=== PATIENT | female | born 1945 | race Caucasian/White ===

== ENCOUNTER 2016-08-04 23:14 | Emergency (ER) | payer MEDICARE ==
[~2016-08-04] VITALS: Ht 177.8 cm; Wt 72.0 kg
[~2016-08-04 23:14] MED LIST: CLON.1 PO; CLON1 PO; CYCL1TAB29 PO; DIOV320T PO; FENT100D T-DERMAL; LYRI150C PO; MAGN400C2; MULT-120 PO; NEBI20 PO; NIFE1TAB86 PO; PERC10TA27 PO; PROT40TA PO; TRIA1TAB5 PO; VENL75TA PO; VITA20003; ZOFR4TAB PO; ZOLP10TA3 PO
[2016-08-04 23:17] VITALS: BP 121/71; PULSE 86; RESP 16; TEMP 97.6; O2SAT 96
[2016-08-05] MEDS ORDERED: SODIUM CHLORIDE 0.9% FLUSH 5 ML FLUSH IVF PRN
[2016-08-05 00:28] LABS: AUTOMATED NEUTROPHIL # 4.3 TH/MM3 (1.8-7.7); BASOPHIL % 0.7 % (0.0-2.0); EOSINOPHIL # 0.2 TH/MM3 (0-0.4); HEMATOCRIT 38.7 % (35.0-46.0); HEMO FLAGS DIFF FINAL; LYMPH % 19.4 % (9.0-44.0); LYMPHOCYTE # 1.3 TH/MM3 (1.0-4.8); MEAN CORPUSCULAR HEMOGLOBIN 27.2 PG (27.0-34.0); MEAN CORPUSCULAR HGB CONC 33.2 % (32.0-36.0); MONO % 11.6 % (0.0-8.0); NEUT % 65.3 % (16.0-70.0); PLATELET COUNT 231 TH/MM3 (150-450); RED BLOOD COUNT 4.72 MIL/MM3 (4.00-5.30); RED CELL DISTRIBUTION WIDTH 14.8 % (11.6-17.2); WHITE BLOOD COUNT 6.5 TH/MM3 (4.0-11.0)
[2016-08-05 00:31] VITALS: O2SAT 97
[2016-08-05 00:33] LABS: BACTERIA, URINE RARE /hpf; BLOOD, URINE NEG (NEG); COMMENT (UR) CULT NOT INDICATED; CULTURE IF INDICATED CULT NOT INDICATED; GLUCOSE,URINE NEG (NEG); KETONE, URINE NEG (NEG); MUCUS URINE FEW /lpf (OCC); NITRITE,URINE NEG (NEG); URINE COLOR YELLOW (YELLW/STRAW)
--- NOTE | 2016-08-05 00:37 | RADRPT ---
EXAM DATE/TIME: 08/05/2016 00:18 [facility] COMPARISON: CT BRAIN W/O CONTRAST, April 18, 2015, 20:08. INDICATIONS : Trauma; fall. Altered mental status. RADIATION DOSE: 39.04 CTDIvol (mGy) MEDICAL HISTORY : Hypertension. Cardiovascular disease Seizures.CVA SURGICAL HISTORY : Hysterectomy. Appendectomy. ENCOUNTER: Initial ACUITY: 1 day PAIN SCALE: 2/10 LOCATION: cranial TECHNIQUE: Multiple contiguous axial images were obtained of the head. Using automated exposure control and adj ustment of the mA and/or kV according to patient size, radiation dose was kept as low as reasonably a chievable to obtain optimal diagnostic quality images. FINDINGS: CEREBRUM: The ventricles are normal for age. No evidence of midline shift, mass lesion, hemorrhage or acute in farction. No extra-axial fluid collections are seen. POSTERIOR FOSSA: The cerebellum and brainstem are intact. The 4th ventricle is midline. The cerebellopontine angle i s unremarkable. EXTRACRANIAL: The visualized portion of the orbits is intact. SKULL: The calvaria is intact. No evidence of skull fracture. CONCLUSION: 1. No evidence of acute intracranial pathology. No masses are identified. Marcello Duran MD on August 05, 2016 at 0:35 Board Certified Radiologist. This report was verified electronically.
--- NOTE | 2016-08-05 01:02 | PD ---
HPI . Weakness Chief Complaint: Altered Mental Status Time Seen by Provider: 23:54 Travel History International Travel<30 days: No Contact w/Intl Traveler<30days: No Traveled to known affect area: No History of Present Illness HPI Patient is brought in for the evaluation of weakness. Patient's history is obtained from the patient and her daughter. The daughter reports that the patient may be dehydrated because she takes Lasix and doesn't drink very much fluid. The daughter also states that the patient has known cervical disc disease. The patient states that she is having trouble with urinating all the time. She has had no fever. There has been no associated vomiting or diarrhea. No chest pain or shortness of breath. PFSH Past Medical History Arthritis: Yes Blood Disorders: No Anxiety: Yes Depression: Yes Cancer: No Cardiovascular Problems: Yes High Cholesterol: Yes Chest Pain: No Cerebrovascular Accident: Yes Diabetes: No Diminished Hearing: No Endocrine: No Fibromyalgia: Yes Gastrointestinal Disorders: Yes (hysterectomy) GERD: Yes Genitourinary: No Headaches: Yes Hepatitis: No Hiatal Hernia: No Hypertension: Yes Immune Disorder: No Implanted Vascular Access Dvce: No Medical other: Yes (FIBROMYALGIA) Musculoskeletal: Yes (degenerative lumbosacral intravertebral disk disease, SPINAL STENOSIS) Neurologic: Yes (CVA) Psychiatric: No Reproductive: Yes (HYSTERECTOMY) Respiratory: No Seizures: Yes Thyroid Disease: No Menopausal: Yes Past Surgical History Abdominal Surgery: Yes (ABDOMINOPLASTY) AICD: No Appendectomy: Yes Body Medical Devices: HARDWARE RIGHT ANKLE, LUMBAR SPINE HARDWARE Gynecologic Surgery: Yes Hysterectomy: Yes Joint Replacement: No Neurologic Surgery: Yes (MYELOGRAM 2012) Pacemaker: No Other Surgery: Yes Social History Alcohol Use: No Tobacco Use: No Substance Use: No Allergies-Medications (Allergen,Severity, Reaction): Coded Allergies: Cephalosporins (Verified Allergy, Severe, Anaphylaxis, 08/05/16) Clindamycin (Verified Allergy, Severe, rash and heavy chest, 08/05/16) Contrast Media (Verified Allergy, Severe, 08/05/16) Pt had a severe allergic reaction to myelogram and CT DYE. Erythromycin (Verified Allergy, Severe, Anaphylaxis, 08/05/16) Levaquin (Verified Allergy, Severe, breathing problems, 08/05/16) Penicillin (Verified Allergy, Severe, Anaphylaxis, 08/05/16) Sulfa (Verified Allergy, Severe, Anaphylaxis, 08/05/16) Tetracycline (Verified Allergy, Severe, Anaphylaxis, 08/05/16) Vioxx (Verified Allergy, Severe, Anaphylaxis, 08/05/16) Morphine (Verified Adverse Reaction, Severe, "BAD REACTION", 08/05/16) PT STATES IS NOT ALLERGIC Hydrocodone (Verified Adverse Reaction, Unknown, 08/05/16) PT STATES SHE IS NOT ALLERGIC Reported Meds & Prescriptions Reported Meds & Active Scripts Active Reported Multivitamin Women (Multiple Vitamins W/ Minerals) 1 Tab Tab 1 Tab PO DAILY Zolpidem (Zolpidem Tartrate) 10 Mg Tab 10 Mg PO HS PRN Zofran (Ondansetron HCl) 4 Mg Tab 4 Mg PO Q8HR PRN Vitamin D (Cholecalciferol) 2,000 Unit Tab 2,000 DAILY Protonix (Pantoprazole Sodium) 40 Mg Tab 40 Mg PO DAILY Percocet (Oxycodone-Acetaminophen) 10-325 mg Tab 1 Tab PO Q6H PRN Magnesium Oxide 400 Mg Cap 400 Mg DAILY Lyrica (Pregabalin) 150 Mg Cap 150 Mg PO TID Klonopin (Clonazepam) 1 Mg Tab 1 Mg PO BID Flexeril (Cyclobenzaprine HCl) 10 Mg Tab 10 Mg PO TID Fentanyl Patch 72 HR (Fentanyl) 100 Mcg/Hr Patch 100 Mcg T-DERMAL EVERY OTHER DAY Remove old patch when new one placed. Effexor (Venlafaxine HCl) 75 Mg Tab 75 Mg PO TID Diovan (Valsartan) 320 Mg Tab 320 Mg PO DAILY Catapres (Clonidine) 0.1 Mg Tab 0.1 Mg PO TID PRN Triamterene-Hydrochlorothiazide 75-50 Mg Tab 1 Tab PO DAILY Procardia XL (Nifedipine) 60 Mg Tab 60 Mg PO BID Review of Systems Except as stated in HPI: all other systems reviewed are Neg General / Constitutional: No: Fever, Chills HENT: No: Headaches Cardiovascular: No: Chest Pain or Discomfort Respiratory: No: Shortness of Breath Gastrointestinal: No: Nausea, Vomiting, Diarrhea, Abdominal Pain Genitourinary: Positive: Urgency, Frequency, Incontinence Musculoskeletal: Positive: Weakness Neurologic: Positive: Weakness Physical Exam Narrative GENERAL: This is a distressed elderly woman. She is distressed because she is on a bedpan. SKIN: Warm and dry. HEAD: Atraumatic. She has a contusion to the left forehead. EYES: Pupils equal and round. ENT: No nasal bleeding or discharge. Mucous membranes pink and moist. She has a swollen right lower lip. NECK: Trachea midline. Neck is supple. She has diffuse C-spine tenderness. CARDIOVASCULAR: Regular rate and rhythm. Heart sounds are normal. RESPIRATORY: No accessory muscle use. Lungs are clear. GASTROINTESTINAL: Abdomen soft, non-tender, nondistended. MUSCULOSKELETAL: No obvious deformities. No edema. NEUROLOGICAL: Awake and alert. No obvious cranial nerve deficits. Motor grossly within normal limits. Normal speech. PSYCHIATRIC: Appropriate mood and affect; insight and judgment normal. Data Data Last Documented VS Vital Signs Date Time Temp Pulse Resp B/P Pulse Ox O2 Delivery O2 Flow Rate FiO2 08/05/16 01:35 78 18 122/70 97 Room Air 08/04/16 23:17 97.6 Orders Complete Blood Count With Diff (08/05/16 00:00) Comprehensive Metabolic Panel (08/05/16 00:00) Lactic Acid (08/05/16 00:00) Urinalysis - C+S If Indicated (08/05/16 00:00) Iv Access Insert/Monitor (08/05/16 00:00) Ecg Monitoring (08/05/16 00:00) Oximetry (08/05/16 00:00) Sodium Chloride 0.9% Flush (Ns Flush) (08/05/16 00:00) Electrocardiogram (08/05/16 00:00) Urinary Catheter Insert/Apply (08/05/16 00:00) Ct Brain W/O Iv Contrast(Rout) (08/05/16 ) Labs Laboratory Tests Test 08/05/16 08/05/16 00:00 00:05 White Blood Count 6.5 TH/MM3 Red Blood Count 4.72 MIL/MM3 Hemoglobin 12.8 GM/DL Hematocrit 38.7 % Mean Corpuscular Volume 82.0 FL Mean Corpuscular Hemoglobin 27.2 PG Mean Corpuscular Hemoglobin 33.2 % Concent Red Cell Distribution Width 14.8 % Platelet Count 231 TH/MM3 Mean Platelet Volume 8.6 FL Neutrophils (%) (Auto) 65.3 % Lymphocytes (%) (Auto) 19.4 % Monocytes (%) (Auto) 11.6 % Eosinophils (%) (Auto) 3.0 % Basophils (%) (Auto) 0.7 % Neutrophils # (Auto) 4.3 TH/MM3 Lymphocytes # (Auto) 1.3 TH/MM3 Monocytes # (Auto) 0.8 TH/MM3 Eosinophils # (Auto) 0.2 TH/MM3 Basophils # (Auto) 0.0 TH/MM3 CBC Comment DIFF FINAL Differential Comment Sodium Level 140 MEQ/L Potassium Level 3.7 MEQ/L Chloride Level 102 MEQ/L Carbon Dioxide Level 29.0 MEQ/L Anion Gap 9 MEQ/L Blood Urea Nitrogen 18 MG/DL Creatinine 0.89 MG/DL Estimat Glomerular Filtration 63 ML/MIN Rate Random Glucose 145 MG/DL Lactic Acid Level 1.3 mmol/L Calcium Level 9.0 MG/DL Total Bilirubin 0.3 MG/DL Aspartate Amino Transf 23 U/L (AST/SGOT) Alanine Aminotransferase 20 U/L (ALT/SGPT) Alkaline Phosphatase 103 U/L Total Protein 7.1 GM/DL Albumin 3.4 GM/DL Urine Color YELLOW Urine Turbidity CLEAR Urine pH 7.0 Urine Specific [place] 1.015 Urine Protein NEG mg/dL Urine Glucose (UA) NEG mg/dL Urine Ketones NEG mg/dL Urine Occult Blood NEG Urine Nitrite NEG Urine Bilirubin NEG Urine Urobilinogen LESS THAN 2.0 MG/DL Urine Leukocyte Esterase NEG Urine WBC 1 /hpf Urine Bacteria RARE /hpf Urine Mucus FEW /lpf Microscopic Urinalysis Comment CULT NOT INDICATED MDM Medical Decision Making Medical Screen Exam Complete: Yes Emergency Medical Condition: Yes Medical Record Reviewed: Yes (this patient has multiple medical problems. She has a history of hypertension, previous intracerebral hemorrhage and many orthopedic issues.) Interpretation(s) EKG shows a normal sinus rhythm with no acute change. Differential Diagnosis Differential diagnosis of weakness includes but is not limited to infection, CVA , electrolyte disturbance, renal failure, hypoglycemia, UTI, ACS Narrative Course Patient presents for evaluation of weakness and frequent falls. CBC & BMP Diagram 08/05/16 00:00 UA is negative for infection. CT of her head is negative. Disposition was discussed with the patient and her daughter. Patient states that she wants to go home. I have expressed my concerns about the patient going home and falling and sustaining a significant injury. Patient states that she is falling because she has a bad walker at home. She states that she will be careful. Diagnosis Primary Impression: Generalized weakness Additional Impression: Frequent falls Patient Instructions: General Instructions, Weakness (ED) Disposition: 01 DISCHARGE HOME Condition: Stable Shari Villareal MD Aug 05, 2016 01:02
[2016-08-05 01:32] LABS: ALKALINE PHOSPHATASE 103 U/L (45-117); ALT (GPT) 20 U/L (10-53); ANION GAP 9 MEQ/L (5-15); AST (GOT) 23 U/L (15-37); BLOOD UREA NITROGEN 18 MG/DL (7-18); CHLORIDE 102 MEQ/L (98-107); GLOMERULAR FILTRATION RATE 63 ML/MIN (>89); SODIUM (NA) 140 MEQ/L (136-145); TOTAL BILIRUBIN ADULT 0.3 MG/DL (0.2-1.0)
[2016-08-05 01:33] LABS: POTASSIUM 3.7 MEQ/L (3.5-5.1)
[2016-08-05 01:35] VITALS: BP 122/70; PULSE 78; RESP 18; O2SAT 97
--- NOTE | 2016-08-05 14:22 | EKG ---
Date Performed: 08/04/2016 Time Performed: 23:30:18 PTAGE: 71 years EKG: Sinus rhythm LOW QRS VOLTAGE IN PRECORDIAL LEADS Since previous tracing, no significant change noted BORDERLINE E CG PREVIOUS TRACING : 12/07/2014 08.27 DOCTOR: Salvador Rea Interpretating Date/Time 08/05/2016 15:15:40
[2016-08-20] MEDS ORDERED: ATEN50TA PO (14:34)
[2016-08-20] MEDS ORDERED: LORA1TAB12 PO (14:34)
== END 2016-08-05 02:44 | disposition home or self-care (01) ==
LOC: NEPC 23:14
DX: R53.1 Weakness (principal); Z91.81 History of falling
CPT/HCPCS: 51702; 70450; 80053; 81001; 83605; 85025; 93005

== ENCOUNTER → 2016-08-20 | Outpatient (CLI) | payer MEDICARE ==
[~2016-08-20] MED LIST changes: +ATEN50TA PO; +LORA1TAB12 PO; +MEDR4PAK PO; -NEBI20 PO; +OXYC1TAB36 PO; +TRAM50TA PO
[2016-08-20 13:50] LABS: AUTOMATED NEUTROPHIL # 4.5 TH/MM3 (1.8-7.7); BASOPHIL % 0.7 % (0.0-2.0); EOSINOPHIL # 0.2 TH/MM3 (0-0.4); EOSINOPHIL % 2.6 % (0.0-4.0); HEMATOCRIT 39.2 % (35.0-46.0); HEMO FLAGS DIFF FINAL; LYMPH % 16.2 % (9.0-44.0); LYMPHOCYTE # 1.1 TH/MM3 (1.0-4.8); MEAN CELL VOLUME 83.1 FL (80.0-100.0); MEAN CORPUSCULAR HEMOGLOBIN 27.4 PG (27.0-34.0); MONO % 10.5 % (0.0-8.0); PLATELET COUNT 246 TH/MM3 (150-450); RED BLOOD COUNT 4.71 MIL/MM3 (4.00-5.30); RED CELL DISTRIBUTION WIDTH 14.6 % (11.6-17.2); WHITE BLOOD COUNT 6.5 TH/MM3 (4.0-11.0)
[2016-08-20 13:58] LABS: BLOOD, URINE NEG (NEG); COMMENT (UR) CATH-CULT NOT IND; CULTURE IF INDICATED CATH CULTURE NOT IND; GLUCOSE,URINE NEG (NEG); KETONE, URINE NEG (NEG); MUCUS URINE FEW /lpf (OCC); NITRITE,URINE NEG (NEG); URINE COLOR YELLOW (YELLW/STRAW)
--- NOTE | 2016-08-22 18:53 | EKG ---
Date Performed: 08/20/2016 Time Performed: 13:08:58 PTAGE: 71 years EKG: Sinus rhythm NORMAL ECG PREVIOUS TRACING : 08/04/2016 23.30 DOCTOR: Archie Quintana Interpretating Date/Time 08/22/2016 18:49:34
== END ==
LOC: CPRE 09:00
PROVIDERS: ATTEND Orthopaedic Surgery Orthopaedic Surgery of the Spine
DX: Z01.810 Encounter for preprocedural cardiovascular examination (principal); Z01.812 Encounter for preprocedural laboratory examination; Z01.818 Encounter for other preprocedural examination; M50.320 Other cervical disc degeneration, mid-cervical region, unspecified level; M50.33 Other cervical disc degeneration, cervicothoracic region
CPT/HCPCS: 36415; 81001; 85025; 93005

== ENCOUNTER 2016-08-30 07:34 | Observation (INO) | payer MEDICARE ==
--- NOTE | 2016-08-29 22:05 | MH ---
cc: HAYDEN HERRERA DATE OF ADMISSION 08/30/2016 ADMISSION DIAGNOSIS Osteophyte disk complex cervical spine. HISTORY This is a 71-year-old female with significant neck, shoulder and arm pain. Investigative studies show evidence of osteophyte disk complex C5-6 at C6-7. Studies show evidence of cord compression especially at C5 6 with myelomalacia. See attached records for full history. PAST MEDICAL HISTORY, SOCIAL HISTORY AND FAMILY HISTORY Some see attached notes. REVIEW OF SYSTEMS See attached notes. PHYSICAL EXAMINATION GENERAL: Average built female appearing her stated age. HEENT: Normocephalic, atraumatic. Pupils equal, round, reactive to light and accommodation. Extraocular motions intact. NECK: Supple. CHEST: Clear. HEART: Regular rate and rhythm. ABDOMEN: Soft, nontender, normoactive bowel sounds. MUSCULOSKELETAL: Examination cervical spine restricted range of motion, positive Spurling's maneuver. Motor examination shows active motor examination, see attached records. IMPRESSION 1. Osteophyte disk complex C5-6 and C6-C7. 2. Cervical radiculopathy. 3. Cervical spinal stenosis. 4. Cervical myelopathy. 5. Cervical instability, C5 6 and C6 7 PLAN Anterior cervical diskectomy, decompression and bilateral foraminotomy C5-6 and C6-7, anterior interbody cages, anterior plate, iliac crest bone graft. CONSENT The risks for surgery including infection, bleeding, loss of motion, continued pain, need for further surgery, neurologic and vascular injury. The patient understands these issues and wishes to press on with surgery as outlined above. Surgery will be performed under the guidance of Dr. Amilcar Herrera and the undersigned. MD PATRICIA Dobbs/LASHANDA /9:46 PM /9:53 PM DENISE
[~2016-08-30] VITALS: Ht 152.4 cm; Wt 69.7 kg
[~2016-08-30 07:34] MED LIST changes: -DIOV320T PO; -MEDR4PAK PO; -MULT-120 PO; -OXYC1TAB36 PO; -TRAM50TA PO; -TRIA1TAB5 PO
[2016-08-30 08:39] VITALS: BP 142/81; PULSE 79; RESP 22; TEMP 97.9; O2SAT 98
[2016-08-30] MEDS ORDERED: MIDAZOLAM HCL 2 MG/2 ML VIAL ONE (09:38)
[2016-08-30] MEDS ORDERED: HYDROmorphone HCL PF 2 MG/ML VIAL ONE (09:38)
[2016-08-30] MEDS ORDERED: APREPITANT 40 MG CAP PO SCH (10:15)
[2016-08-30] MEDS ORDERED: CHLORHEXIDINE GLUCONATE 4% SOLN 120 ML BTL TOP SCH (11:30)
[2016-08-30] MEDS ORDERED: VANCOMYCIN 1000 MG/NS 250 ML (for <70 kg) IV SCH ×2 (11:30)
[2016-08-30] MEDS ORDERED: GENTAMICIN SULFATE 80 MG/2 ML VIAL ONE (11:46)
[2016-08-30] MEDS ORDERED: FAMOTIDINE 20 MG/2 ML VIAL ONE (12:00)
[2016-08-30] MEDS ORDERED: PROPOFOL 200 MG/20 ML AMP IV ONE (12:00)
[2016-08-30] MEDS ORDERED: ACETAMINOPHEN 1000 MG/100 ML VIAL IV ONE (12:00)
[2016-08-30] MEDS ORDERED: KETAMINE HCL 500 MG/5 ML VIAL ONE (12:00)
[2016-08-30] MEDS ORDERED: LACTATED RINGER'S 1000 ML INJ 1,000 ML IV ONE (12:00)
[2016-08-30] MEDS ORDERED: ONDANSETRON HCL 4 MG/2 ML VIAL IV PUSH ONE (12:00)
[2016-08-30] MEDS ORDERED: DEXAMETHASONE SOD PHOS 4 MG/ML VIAL ONE (12:00)
[2016-08-30] MEDS ORDERED: fentaNYL CITRATE 250 MCG/5 ML AMP ONE (12:00)
[2016-08-30] MEDS ORDERED: BUPIVACAINE/EPINEPHRINE 0.25% 50 ML VIAL INFIL ONE (13:56)
--- NOTE | 2016-08-30 14:40 | PD.OP ---
cc: Amilcar Williamson MD; Francisco Javier Williamson MD Operative Report Date of Surgery: Aug 30, 2016 Preoperative Diagnosis: Osteophyte disc complex C5 6 and C6 7. Cervical spinal stenosis. Cervical radiculopathy. Cervical myelopathy. Cervical instability, C5 6 and C6 7 Postoperative Diagnosis: Same Procedure: Anterior cervical discectomy decompression and bilateral foraminotomies, C5 6. Anterocervical discectomy decompression and bilateral foraminotomies, C6 7. Left anterior iliac crest bone graft Anesthesia: Gen. Surgeon: Francisco Javier Williamson Assembler Dc Field Yoke(s): GISELLE Garcia Operation and Findings: EBL: 100 cc INDICATIONS: Patient is a 71-year-old female who is developing a significant cervical myelopathy related to instability at C5 6 and C6 7 with evidence of spinal cord compromise and myelomalacia. She presents for surgical treatment NOTE: Linda Garcia PA-C was present for the entire surgical procedure as my rn first assist. In my medical opinion her skill and care was necessary for proper management of this patient PROCEDURE: The patient was brought to the operating room and anesthetized in the supine position. This patient was positioned supine on the radiolucent table. All pressure points were protected in the anterior cervical spine and iliac crest was scrubbed with alcohol followed by Hibiclens followed by ChloraPrep. A timeout was done and antibiotics were given within 1 hour time window. Lateral radiographic images were used identifying the proper level. A right anterior incision was made in line with skin creases. The platysma was opened in line with the incision. Deep dissection continued in the interval between the carotid sheath and the esophagus. The longus-coli muscles were lifted on both sides and retractors were positioned allowing good exposure. Lateral radiographic images were used to identify the proper level. [place] style interosseous pins were placed at C5 and 6 allowing exposure to that level. The microscope was rolled into the field. A total discectomy was accomplished and posterior osteophytes were removed. The posterior longitudinal ligament and annulus was taken down. Bilateral foraminotomies were accomplished. The endplates were squared up anticipating later bone grafting. A blunt probe could be placed out each foramen without evidence of nerve root compromise. The C5 pin was placed down to C7. An anterior exposure was accomplished. We performed a total discectomy with excision of the posterior annulus and posterior longitudinal ligament. Bilateral foraminotomies were accomplished. Osteophytes were removed. The endplates were squared up anticipating later bone grafting. A blunt probe could be placed out each foramen without evidence of nerve root compromise. The left iliac crest was approached. A small stab incision was made allowing percutaneous access to the anterior iliac crest. Multiple cores of cancellous bone were harvested and taken to the back table to be used for later bone grafting. The wound was irrigated anesthetized and closed with 4-0 Vicryl followed by Dermabond. The case was turned over to Dr. Amilcar Williamson for fusion and instrumentation per his dictation. FINDINGS: There was evidence of significant stenosis with instability both at the C5 6 and C6 7 levels. No complication was appreciated. NOTE: This surgery was performed in 2 parts. The first part was the neurosurgical decompression performed under the variable power stereo microscope by the undersigned in addition to the bone graft. The second portion of the surgery will be performed by the orthopedic spine component by co -surgeon, Dr. Amilcar Williamson for the anterior fusion with interbody cage and anterior plate. The skill of 2 surgeons was necessary to perform distinct separate procedural services as dictated above and dictated in the following operative note by Dr. Amilcar Williamson. Francisco Javier Williamson MD Aug 30, 2016 14:40
[2016-08-30] MEDS ORDERED: OXYC1TAB36 PO (14:41)
[2016-08-30] MEDS ORDERED: PANTOPRAZOLE SOD 40 MG DELAYED RELEASE TAB PO PRN (14:45)
[2016-08-30] MEDS ORDERED: ONDANSETRON HCL 4 MG/2 ML VIAL IV PRN (14:45)
[2016-08-30] MEDS ORDERED: SODIUM CHLORIDE 0.9% FLUSH 5 ML FLUSH IVF PRN (14:45)
[2016-08-30] MEDS ORDERED: MORPHINE SULFATE 4 MG/ML INJ IV PUSH PRN (14:45)
[2016-08-30] MEDS ORDERED: BISACODYL 10 MG SUPP PR PRN (14:45)
[2016-08-30] MEDS ORDERED: cloNIDine HCL 0.1 MG TAB PO PRN (14:45)
[2016-08-30] MEDS ORDERED: oxyCODONE/ACETAMINOPHEN 5 MG/325 MG TAB PO PRN ×2 (14:45)
[2016-08-30] MEDS ORDERED: Post-op Orders (for Pharmacy) MISC XX ONE (14:45)
[2016-08-30] MEDS ORDERED: LORazepam 1 MG TAB PO PRN (14:45)
[2016-08-30] MEDS ORDERED: ZOLPIDEM TARTRATE 10 MG TAB PO PRN (14:45)
[2016-08-30] MEDS ORDERED: ONDANSETRON ODT 4 MG TAB PO PRN (15:30)
--- NOTE | 2016-08-30 15:44 | RADRPT ---
EXAM DATE/TIME: 08/30/2016 13:13 [facility] COMPARISON: No previous studies available for comparison. INDICATIONS : Cervical Spine Fusion, C5-6, C6-7. MEDICAL HISTORY : Hypertension. Cardiovascular disease. Seizures. CVA SURGICAL HISTORY : Hysterectomy. Appendectomy. ENCOUNTER: Initial ACUITY: 1 day PAIN SCORE: Non-responsive. LOCATION: Cervical Spine. FINDINGS: Two projection examination was performed. There is an anterior cervical fusion plate extending from C5-C7 with screws at the C5, C6 and C7 vertebral bodies and stabilization devices at the C5-C6 and C6 -C7 disc levels. The hardware appears well placed. CONCLUSION: Good placement of hardware at the C5-C7 levels. Shar Kevin MD on August 30, 2016 at 15:41 Board Certified Radiologist. This report was verified electronically.
[2016-08-30] MEDS ORDERED: *HYDROmorphone PF 1 MG VIAL PERIprocedural Use ONLY ONE ×3 (16:21→16:43)
[2016-08-30] MEDS ORDERED: DO NOT ADM ANY ANTICOAGULANT DRUGS XX PRN (16:30)
[2016-08-30] MEDS ORDERED: LORazepam 2 MG/ML VIAL ONE (16:34)
[2016-08-30] MEDS ORDERED: *hydrOXYzine 25 MG VIAL PERIprocedural Use ONLY IM ONE (16:43)
[2016-08-30] MEDS ORDERED: HYDROmorphone HCL PF 1 MG/ML VIAL IV PRN (18:00)
[2016-08-30] MEDS: LACTATED RINGER'S 1000 ML INJ 1,000 ML IV SCH (18:45)
[2016-08-30] MEDS: PREGABALIN 75 MG CAP PO SCH (19:17)
[2016-08-30] MEDS: CYCLOBENZAPRINE HCL 10 MG TAB PO SCH (19:17)
[2016-08-30] MEDS ORDERED: fentaNYL 100 MCG/HR PATCH T-DERMAL SCH (20:00)
[2016-08-30 20:45] VITALS: BP 139/98; PULSE 77; RESP 16; TEMP 96.9; O2SAT 99
[2016-08-30 20:49] VITALS: BP 139/98; PULSE 77; RESP 16; TEMP 96.9; O2SAT 99
[2016-08-30] MEDS: clonazePAM 1 MG TAB PO SCH (21:06)
[2016-08-30] MEDS: NIFEdipine 60 MG SUSTAINED RELEASE TAB PO SCH (21:06)
[2016-08-30] MEDS: ATENOLOL 50 MG TAB PO SCH (21:06)
[2016-08-30] MEDS: VENLAFAXINE HCL XR 75 MG CAP PO SCH (21:06)
[2016-08-30] MEDS: SODIUM CHLORIDE 0.9% FLUSH 5 ML FLUSH IVF SCH (21:07)
[2016-08-31 00:46] VITALS: BP 164/97; PULSE 101; O2SAT 97
[2016-08-31] MEDS: clonazePAM 1 MG TAB PO SCH ×2 (00:53→08:51)
[2016-08-31] MEDS: LACTATED RINGER'S 1000 ML INJ 1,000 ML IV SCH (03:04)
[2016-08-31 04:00] VITALS: BP 135/96; PULSE 80; RESP 22; TEMP 97.9; O2SAT 94
[2016-08-31] MEDS ORDERED: VANCOMYCIN INJ 1,000 MG in SODIUM CHLOR 0.9% 250 ML INJ 250 ML IV ONE (06:00)
--- NOTE | 2016-08-31 07:46 | PD.ORT.PN ---
Subjective Subjective Remarks Patient appears comfortable. Race is intact. No arm pain or loss of feeling. Motor examination 5/5 Objective Vitals Vital Signs Date Time Temp Pulse Resp B/P Pulse Ox O2 Delivery O2 Flow Rate FiO2 08/31/16 04:00 97.9 80 22 135/96 94 08/31/16 00:46 101 164/97 97 08/30/16 20:49 96.9 77 16 139/98 99 08/30/16 20:45 96.9 77 16 139/98 99 08/30/16 19:00 74 12 164/88 98 Nasal Cannula 2 08/30/16 18:45 97.2 73 12 158/81 96 Nasal Cannula 2 08/30/16 18:30 73 12 142/79 96 Nasal Cannula 2 08/30/16 18:15 73 12 122/66 96 Nasal Cannula 2 08/30/16 18:00 74 12 129/71 96 Nasal Cannula 3 08/30/16 17:45 74 10 141/80 96 Nasal Cannula 3 08/30/16 17:30 76 12 159/85 99 Nasal Cannula 3 08/30/16 17:15 77 12 158/86 98 Nasal Cannula 3 08/30/16 17:00 86 12 162/95 95 Nasal Cannula 3 08/30/16 16:45 87 12 178/113 92 Nasal Cannula 3 08/30/16 16:30 92 12 165/87 93 Nasal Cannula 3 08/30/16 16:15 83 12 174/107 92 Nasal Cannula 3 08/30/16 16:00 81 14 151/75 99 Blow By 4 Nasal Cannula 08/30/16 15:59 89 14 153/80 99 Blow By 4 Nasal Cannula 08/30/16 08:39 97.9 79 22 142/81 98 I/O 08/30/16 08/30/16 08/30/16 08/31/16 08/31/16 08/31/16 07:00 15:00 23:00 07:00 15:00 23:00 Intake Total 1650 ml 150 ml Output Total 1800 ml 225 ml Balance -150 ml -75 ml Intake Oral 150 ml 150 ml IV Total 300 ml Other 1200 ml Output Urine Total 1650 ml 225 ml Estimated Blood Loss 150 ml # Bowel Movements 0 0 Objective Remarks Incision is clean. Motor examination 5/5. X-ray looks excellent. Some swallowing discomfort but otherwise normal voice and no evidence of Christophe syndrome Assessment & Plan Assessment and Plan Cervical spinal stenosis. Cervical radiculopathy. Cervical myelopathy. ACDF C5 6, C6 7, POD #1. PLAN: Discharge to home Continue present medications Additional prescription of Percocet if necessary Brace full-time Dry dressing change Can shower in 2 days if dressings are dry Follow-up in 2 weeks Francisco Javier Williamson MD Aug 31, 2016 07:46
[2016-08-31 08:00] VITALS: BP 133/68; PULSE 81; RESP 17; TEMP 96.8; O2SAT 96
[2016-08-31] MEDS: CYCLOBENZAPRINE HCL 10 MG TAB PO SCH (08:51)
[2016-08-31] MEDS: SODIUM CHLORIDE 0.9% FLUSH 5 ML FLUSH IVF SCH (08:51)
[2016-08-31] MEDS: ATENOLOL 50 MG TAB PO SCH (08:51)
[2016-08-31] MEDS: PREGABALIN 75 MG CAP PO SCH (08:51)
[2016-08-31] MEDS: VENLAFAXINE HCL XR 75 MG CAP PO SCH (08:51)
[2016-08-31] MEDS: NIFEdipine 60 MG SUSTAINED RELEASE TAB PO SCH (08:51)
[2016-08-31] MEDS ORDERED: DOCUSATE SODIUM 100 MG CAP PO SCH (09:00)
[2016-08-31] MEDS ORDERED: MULTIVITAMINS/MINERALS THERAPEUTIC TAB PO SCH (09:00)
[2016-08-31 12:00] VITALS: BP 127/69; PULSE 75; RESP 17; TEMP 97.3; O2SAT 97
[2016-09-01] MEDS ORDERED: REMOVE OLD PATCH TD SCH (09:00)
--- NOTE | 2016-09-01 21:39 | MP ---
cc: JOSE WILLIAMSON JAMES E. M.D. DATE OF SURGERY 08/30/16 PREOPERATIVE DIAGNOSIS 1. C5-6 osteophyte disk complex, spondylolisthesis, spinal stenosis, spinal cord compression 2. C6-7 osteophyte disk complex, spondylolisthesis, spinal cord edema, spinal cord compression, spinal stenosis. 3. Cervical spine degenerative disk osteoarthritis. 4. Cervical myelopathy with bilateral cervical radiculitis, bilateral upper extremity weakness. POSTOPERATIVE DIAGNOSIS 1. C5-6 osteophyte disk complex, spondylolisthesis, spinal stenosis, spinal cord compression 2. C6-7 osteophyte disk complex, spondylolisthesis, spinal cord edema, spinal cord compression, spinal stenosis. 3. Cervical spine degenerative disk osteoarthritis. 4. Cervical myelopathy with bilateral cervical radiculitis, bilateral upper extremity weakness. PROCEDURE C5-6, C6-7 anterior body fusion; C5-6, C6-7 spinet ACC anterior cervical cage; C5-C7 spinet Raus[place] anterior spinal instrumentation. SURGEON Anton Williamson MD CYLINDER VALVE REPAIRER RONALDO Padron SPECIMEN None. ESTIMATED BLOOD LOSS 150 mL for entire case. COMPLICATIONS None ANESTHESIA General DRAINS None. CONDITION Stable PLAN OF ACTIVITY Per orders. PROCEDURE IN DETAIL Dr. Francisco Javier Williamson and myself were cosurgeons in this surgical procedure. Dr. Francisco Javier Williamson performed the neurosurgical decompression portion of the procedure at C5-6 and C6-7 and also performed the anterior iliac crest bone grafting. I performed the orthopedic stabilization and fusion portion of the procedure. My maintenance assistant RONALDO Champion, was present for the entire surgical case. She was medically necessary for entire case because of the complexity of the case and to facilitate the performance of the procedure. The SUSTAINABILITY COACH at the back table was not a skill set for this case, manipulate the instruments e.g. multiple different types of soft tissue tractors, trial implants and permanent implants. The patient was brought into the operating room and had satisfactory general endotracheal anesthesia by the Department of Anesthesia. Dr. Francisco Javier Williamson performed a right transverse anterior cervical spine exposure to C5-6 and C6-7. He performed C5-6, C6-7 anterior cervical diskectomy, anterior decompression using operative microscope. He also performed left anterior iliac crest bone grafting for the fusion. The endplates at C6-7 were prepared for fusion. The hyaline cartilage endplates were used using angled curettes and burs. The hyaline cartilage endplate was removed using angled curettes, burs. A 6 10x12 ACC cage placed in interspace. Anterior crest bone graft placed under iliac crest bone grafting of interbody fusion with fluoroscopic guidance. The endplates at C5-6 were prepared for fusion. A 5 10x12 ACC cage placed in interspace. Anterior crest bone graft placed under fluoroscopy guidance for interbody fusion. Anterior osteophytes were removed using angled curettes and burs and rongeurs. A 40 mm length plate was contoured to patient's normal cervical lordosis. Two tack pins were used under fluoroscopic guidance AP and lateral plane for satisfactory positioning of the plate. Two screws were used in the vertebral body C5, C6 and C7. Each screw was 14 mm in length 4.0 mm in diameter fixed angle screws. Each screw was drilled. Each screw was inserted under fluoroscopic guidance. Each screw has appropriate lock to the plate. Intraoperative fluoroscopy AP and lateral plane confirmed satisfactory position of bone graft at C5-6, C6-7. Satisfactory position of the ACC cages at C5-6 and C6-7. Satisfactory position of anterior spinal instrumentation at C5-C7. The wound was irrigated with copious amounts of sterile saline antibiotic solution. Wound itself was dry. The wound was closed in routine manner multiple layers using 3-0 Vicryl suture. Skin approximated running subcuticular 4-0 Vicryl suture. Dermabond placed over the skin incision. Sterile dressing applied. The patient placed in [place] cervical orthosis. The patient tolerated the procedure well and went to recovery room in stable and satisfactory condition. MD SILVIO Gan/ /3:51 PM /9:19 PM DENISE
== END 2016-08-31 13:12 | disposition home or self-care (01) ==
LOC: HSDC 07:34 → UNDOADMIN 14:37 → HSDI 14:37 → INTOOBSV 16:30 → HSDI 16:30 → N06A 19:54 → UNDODISIN 08-31 13:12
PROVIDERS: ADMIT Orthopaedic Surgery Orthopaedic Surgery of the Spine; ATTEND Orthopaedic Surgery Orthopaedic Surgery of the Spine
DX: M25.78 Osteophyte, vertebrae (principal); M48.02 Spinal stenosis, cervical region; M50.33 Other cervical disc degeneration, cervicothoracic region; M54.12 Radiculopathy, cervical region; M53.2X2 Spinal instabilities, cervical region; G95.89 Other specified diseases of spinal cord; M50.022 Cervical disc disorder at C5-C6 level with myelopathy; M50.023 Cervical disc disorder at C6-C7 level with myelopathy; M43.12 Spondylolisthesis, cervical region; I10 Essential (primary) hypertension; E78.5 Hyperlipidemia, unspecified
CPT/HCPCS: 00600; 20936; 22551; 22552; 22845; 22853; 72040; 76000; 94150; C1713; G0378; J0131; J1100; J1170; J1580; J2060; J2250; J2405; J3010; J3370; J3410; J7050; J7120; J8501

== ENCOUNTER 2016-09-11 16:58 | Emergency (ER) | payer MEDICARE ==
[~2016-09-11 16:58] MED LIST changes: +OXYC1TAB36 PO
[2016-09-11 17:00] VITALS: BP 151/72; PULSE 80; RESP 17; TEMP 97.9; O2SAT 98
[2016-09-11] MEDS ORDERED: MEDR4PAK PO (20:43)
== END 2016-09-11 18:00 | disposition left against medical advice (07) ==
LOC: NED 16:58
DX: M54.9 Dorsalgia, unspecified (principal)
CPT/HCPCS: 99281

== ENCOUNTER 2016-09-11 19:09 | Emergency (ER) | payer MEDICARE ==
[~2016-09-11] VITALS: Ht 152.4 cm; Wt 66.0 kg
[2016-09-11 19:12] VITALS: BP 179/93; PULSE 79; RESP 16; TEMP 97.6; O2SAT 97
--- NOTE | 2016-09-11 20:25 | PD ---
HPI Chief Complaint: Back/ Neck Pain or Injury Time Seen by Provider: 20:25 Travel History International Travel<30 days: No Contact w/Intl Traveler<30days: No Traveled to known affect area: No History of Present Illness HPI Patient comes in complaining of right-sided sciatica flareup that began yesterday. Patient denies any trauma, fevers, numbness or tingling, abdominal pain, or loss of bowel or bladder. Patient reports she gets sciatica flareups about 4 times a year and normally comes to the hospital and gets a shot of unknown medication. Patient states she's been taking her regular pain medications without relief. Patient has pain is a burning pain in her right low back that shoots down her right lower extremity similar previous sciatica flareups. Patient reports she has a follow-up appointment with orthopedic this week. Patient asking if Dilaudid is given for sciatic pain. PFSH Past Medical History Arthritis: Yes Blood Disorders: No Anxiety: Yes Depression: Yes Cancer: No Cardiovascular Problems: No High Cholesterol: Yes Chest Pain: No Cerebrovascular Accident: Yes Diabetes: No Diminished Hearing: No Endocrine: No Fibromyalgia: Yes Gastrointestinal Disorders: Yes (hysterectomy) GERD: Yes Genitourinary: No Headaches: Yes Hepatitis: No Hiatal Hernia: No Hypertension: Yes Immune Disorder: No Implanted Vascular Access Dvce: No Medical other: Yes (FIBROMYALGIA, OA) Musculoskeletal: Yes (degenerative lumbosacral intravertebral disk disease, SPINAL STENOSIS) Neurologic: No Psychiatric: No Reproductive: Yes (HYSTERECTOMY) Respiratory: No Immunizations Current: Yes Seizures: No Thyroid Disease: No Tetanus Vaccination: < 5 Years Influenza Vaccination: No Menopausal: Yes Past Surgical History Abdominal Surgery: Yes (ABDOMINOPLASTY) AICD: No Appendectomy: Yes Body Medical Devices: HARDWARE RIGHT ANKLE, LUMBAR SPINE HARDWARE Gynecologic Surgery: Yes (HYSTERECTOMY) Hysterectomy: Yes Joint Replacement: No Neurologic Surgery: Yes (MYELOGRAM 2012) Oral Surgery: Yes (TONSILLECTOMY) Pacemaker: No Other Surgery: Yes Social History Alcohol Use: No Tobacco Use: No Substance Use: No Allergies-Medications (Allergen,Severity, Reaction): Coded Allergies: Cephalosporins (Verified Allergy, Severe, Anaphylaxis, 09/11/16) Clindamycin (Verified Allergy, Severe, rash and heavy chest, 09/11/16) Contrast Media (Verified Allergy, Severe, 09/11/16) Pt had a severe allergic reaction to myelogram and CT DYE. Erythromycin (Verified Allergy, Severe, Anaphylaxis, 09/11/16) Levaquin (Verified Allergy, Severe, breathing problems, 09/11/16) Penicillin (Verified Allergy, Severe, Anaphylaxis, 09/11/16) Sulfa (Verified Allergy, Severe, Anaphylaxis, 09/11/16) Tetracycline (Verified Allergy, Severe, Anaphylaxis, 09/11/16) Vioxx (Verified Allergy, Severe, Anaphylaxis, 09/11/16) Morphine (Verified Adverse Reaction, Severe, "BAD REACTION", 09/11/16) PT STATES IS NOT ALLERGIC Hydrocodone (Verified Adverse Reaction, Unknown, 09/11/16) PT STATES SHE IS NOT ALLERGIC Reported Meds & Prescriptions Reported Meds & Active Scripts Active Medrol Dosepak (Methylprednisolone) 4 Mg Dspk 4 Mg PO DIRECTED Per Pharmacist direction Reported Lorazepam 1 Mg Tab 1 Mg PO Q8H PRN Atenolol 50 Mg Tab 50 Mg PO BID Zolpidem (Zolpidem Tartrate) 10 Mg Tab 10 Mg PO HS PRN Zofran (Ondansetron HCl) 4 Mg Tab 4 Mg PO Q8HR PRN Vitamin D (Cholecalciferol) 2,000 Unit Tab 2,000 DAILY Protonix (Pantoprazole Sodium) 40 Mg Tab 40 Mg PO DAILY PRN Percocet (Oxycodone-Acetaminophen) 10-325 mg Tab 1 Tab PO Q6H PRN Magnesium Oxide 400 Mg Cap 400 Mg DAILY Lyrica (Pregabalin) 150 Mg Cap 150 Mg PO TID Klonopin (Clonazepam) 1 Mg Tab 1 Mg PO BID Flexeril (Cyclobenzaprine HCl) 10 Mg Tab 10 Mg PO TID Fentanyl Patch 72 HR (Fentanyl) 100 Mcg/Hr Patch 100 Mcg T-DERMAL EVERY OTHER DAY Remove old patch when new one placed. Effexor (Venlafaxine HCl) 75 Mg Tab 75 Mg PO TID Catapres (Clonidine) 0.1 Mg Tab 0.1 Mg PO TID PRN Procardia XL (Nifedipine) 60 Mg Tab 60 Mg PO BID Review of Systems Except as stated in HPI: all other systems reviewed are Neg Physical Exam Narrative GENERAL: Well-developed, overly nourished, in no acute distress, and non-ill appearing. SKIN: Warm and dry. HEAD: Atraumatic. Normocephalic. EYES: Pupils equal and round. EOMI. No scleral icterus. No injection or drainage. ENT: No nasal bleeding or discharge. Mucous membranes pink and moist. NECK: Trachea midline. C-collar in place. CARDIOVASCULAR: Dorsal pulses 2+ intact and equal bilaterally. Capillary refill less than 2 seconds. RESPIRATORY: No accessory muscle use. No respiratory distress. MUSCULOSKELETAL: No obvious deformities. No clubbing. No cyanosis. No edema. Full range of motion. No tenderness or crepitus over the midline lumbar spine. Patient reports tenderness near right SI joint. NEUROLOGICAL: Awake and alert. No obvious cranial nerve deficits. Motor grossly within normal limits. Normal speech. PSYCHIATRIC: Appropriate mood and affect; insight and judgment normal. Data Data Last Documented VS Vital Signs Date Time Temp Pulse Resp B/P Pulse Ox O2 Delivery O2 Flow Rate FiO2 09/11/16 19:12 97.6 79 16 179/93 97 Orders Famotidine (Pepcid) (09/11/16 20:30) Dexamethasone Inj (Decadron Inj) (09/11/16 20:45) MDM Medical Decision Making Medical Screen Exam Complete: Yes Emergency Medical Condition: Yes Differential Diagnosis Acute on chronic pain, fracture, strain, contusion, sciatica, other Narrative Course The patient presented complaining of back pain with radiation down leg. There was no history of recent fall or trauma. There was no evidence to support genitourinary etiology. There is also no evidence to suggest vascular pathology such as AAA dissection. No fevers or other evidence to suspect infectious processes, abscess, osteomyelitis etc. The patients neurological exam is normal with normal motor and sensory. There is no saddle paresthesias reported and no bowel or bladder incontinence or retention. I suspect the pain is mechanical in nature with sciatica. Clinical suspicion, plan of care and management was discussed with the patient. The patient was instructed to follow up with their health care provider. The patient was also instructed to return if the pain worsened, changed, or developed weakness or bowel or bladder trouble. The patient agreed with plan. Patient in no obvious distress upon re-evaluation. Patient was asked if they wanted to speak to my attending, which the patient did not wish to do at this time. Any questions/concerns in reference to patient diagnosis/condition discussed and clarified prior to patient's discharge. Reinforced sheer importance of close follow up with patient's primary physician or primary care clinic. Instructed patient to return to ED immediately, if symptoms return/ worsen. Pt showed understanding of above instructions. Further instructions and recommendations were detailed in discharge paperwork. Pt left without difficulty out of ED at discharge. Diagnosis Primary Impression: Sciatica of right side Patient Instructions: General Instructions, Sciatica (ED) Additional Instructions: Follow-up with your primary care physician and/or orthopedic doctor this week. Take all medication as prescribed. Return to the emergency department if symptoms get worse. Med/Other Pt SpecificInfo: Prescription(s) given Scripts Methylprednisolone Dosepak (Medrol Dosepak)4 Mg Dspk4 Mg PO DIRECTED #1 DSPK Ref 0 Per Pharmacist direction Prov:Artem Liu MD 09/11/16 Disposition: 01 DISCHARGE HOME Condition: Stable Jorge Sanchez Sep 11, 2016 20:25
[2016-09-11] MEDS ORDERED: FAMOTIDINE 20 MG TAB PO ONE (20:30)
[2016-09-11] MEDS ORDERED: MEDR4PAK PO (20:43)
[2016-09-11] MEDS ORDERED: DEXAMETHASONE SOD PHOS 4 MG/ML VIAL IM ONE (20:45)
== END 2016-09-11 21:20 | disposition home or self-care (01) ==
LOC: NETRI 19:09
DX: M54.31 Sciatica, right side (principal)
CPT/HCPCS: 96372; 99283; J1100

== ENCOUNTER 2016-09-12 09:01 | Emergency (ER) | payer MEDICARE ==
[~2016-09-12] VITALS: Ht 152.4 cm; Wt 70.0 kg
[~2016-09-12 09:01] MED LIST changes: +MEDR4PAK PO; -OXYC1TAB36 PO
[2016-09-12 09:14] VITALS: BP 181/97; PULSE 99; RESP 20; TEMP 98.1; O2SAT 96
[2016-09-12] MEDS ORDERED: LORazepam 2 MG/ML VIAL IM ONE (09:45)
--- NOTE | 2016-09-12 10:16 | PD ---
HPI . Neck pain and sciatica on the right Chief Complaint: Back/ Neck Pain or Injury Time Seen by Provider: 09:33 Travel History International Travel<30 days: No Contact w/Intl Traveler<30days: No Traveled to known affect area: No History of Present Illness HPI Patient presents complaining with neck pain and right leg pain related to sciatica. Patient had cervical fusion on 09/01. She is maintained in a cervical collar at this time. She also has sciatica. She was seen here yesterday for the sciatica. She was treated with steroids. She was requesting Dilaudid for her sciatica yesterday. The patient is currently maintained on fentanyl patches and oxycodone 10 mg every 6 hours. She reports that she is out of her fentanyl patches and cannot get them refilled for several more days. Apparently, she ran out early. She reports a fall today but states that her neck and sciatica pain had started before the fall. Patient has a history of frequent falls. Patient also has a chronic history of difficulty urinating. She has been complaining since she got here that she needs to urinate and has been placed on a bed dumont several times. But, she has not yet urinated. Her records were reviewed and this is actually a chronic problem. [id number]: Neck and low back to right leg SEVERITY: Severe DURATION: Chronic CONTEXT: Recent cervical fusion, chronic problems with sciatica MODIFYING FACTORS: Unrelieved by the steroids that were prescribed yesterday ASSOCIATED SYMPTOMS: PFSH Past Medical History Arthritis: Yes Blood Disorders: No Anxiety: Yes Depression: Yes Cancer: No Cardiovascular Problems: No High Cholesterol: Yes Chest Pain: No Cerebrovascular Accident: Yes Diabetes: No Diminished Hearing: No Endocrine: No Fibromyalgia: Yes Gastrointestinal Disorders: Yes (OCCASIONAL CONSTIPATION) GERD: Yes Genitourinary: No Headaches: No Hepatitis: No Hiatal Hernia: No Hypertension: Yes Immune Disorder: No Implanted Vascular Access Dvce: No Medical other: Yes (FIBROMYALGIA, OA) Musculoskeletal: Yes (degenerative lumbosacral intravertebral disk disease, SPINAL STENOSIS) Neurologic: No Psychiatric: No Reproductive: Yes (HYSTERECTOMY) Respiratory: No Immunizations Current: Yes Seizures: No Thyroid Disease: No Influenza Vaccination: No Menopausal: Yes Past Surgical History Abdominal Surgery: Yes (ABDOMINOPLASTY) AICD: No Appendectomy: Yes Body Medical Devices: HARDWARE RIGHT ANKLE, LUMBAR SPINE HARDWARE Gynecologic Surgery: Yes (HYSTERECTOMY) Hysterectomy: Yes Joint Replacement: No Neurologic Surgery: Yes (MYELOGRAM 2012) Oral Surgery: Yes (TONSILLECTOMY) Pacemaker: No Other Surgery: Yes Social History Alcohol Use: No Tobacco Use: No Substance Use: No Allergies-Medications (Allergen,Severity, Reaction): Coded Allergies: Cephalosporins (Verified Allergy, Severe, Anaphylaxis, 09/12/16) Clindamycin (Verified Allergy, Severe, rash and heavy chest, 09/12/16) Contrast Media (Verified Allergy, Severe, 09/12/16) Pt had a severe allergic reaction to myelogram and CT DYE. Erythromycin (Verified Allergy, Severe, Anaphylaxis, 09/12/16) Levaquin (Verified Allergy, Severe, breathing problems, 09/12/16) Penicillin (Verified Allergy, Severe, Anaphylaxis, 09/12/16) Sulfa (Verified Allergy, Severe, Anaphylaxis, 09/12/16) Tetracycline (Verified Allergy, Severe, Anaphylaxis, 09/12/16) Vioxx (Verified Allergy, Severe, Anaphylaxis, 09/12/16) Morphine (Verified Adverse Reaction, Severe, "BAD REACTION", 09/12/16) PT STATES IS NOT ALLERGIC Hydrocodone (Verified Adverse Reaction, Unknown, 09/12/16) PT STATES SHE IS NOT ALLERGIC Reported Meds & Prescriptions Reported Meds & Active Scripts Active Medrol Dosepak (Methylprednisolone) 4 Mg Dspk 4 Mg PO DIRECTED Per Pharmacist direction Reported Lorazepam 1 Mg Tab 1 Mg PO Q8H PRN Atenolol 50 Mg Tab 50 Mg PO BID Zolpidem (Zolpidem Tartrate) 10 Mg Tab 10 Mg PO HS PRN Zofran (Ondansetron HCl) 4 Mg Tab 4 Mg PO Q8HR PRN Vitamin D (Cholecalciferol) 2,000 Unit Tab 2,000 DAILY Protonix (Pantoprazole Sodium) 40 Mg Tab 40 Mg PO DAILY PRN Percocet (Oxycodone-Acetaminophen) 10-325 mg Tab 1 Tab PO Q6H PRN Magnesium Oxide 400 Mg Cap 400 Mg DAILY Lyrica (Pregabalin) 150 Mg Cap 150 Mg PO TID Klonopin (Clonazepam) 1 Mg Tab 1 Mg PO BID Flexeril (Cyclobenzaprine HCl) 10 Mg Tab 10 Mg PO TID Fentanyl Patch 72 HR (Fentanyl) 100 Mcg/Hr Patch 100 Mcg T-DERMAL EVERY OTHER DAY Remove old patch when new one placed. Effexor (Venlafaxine HCl) 75 Mg Tab 75 Mg PO TID Catapres (Clonidine) 0.1 Mg Tab 0.1 Mg PO TID PRN Procardia XL (Nifedipine) 60 Mg Tab 60 Mg PO BID Review of Systems Except as stated in HPI: all other systems reviewed are Neg General / Constitutional: No: Fever, Chills HENT: Positive: Neck Pain Genitourinary: Positive: Hesitancy, No: Incontinence Musculoskeletal: Positive: Pain (low back pain and right leg pain) Neurologic: No: Weakness, Focal Abnormalities, Paresthesia, Incontinence Physical Exam Narrative GENERAL: Patient is lying on the stretcher with her neck maintained in a hard cervical collar. However, her chin is not in the chin rest and her neck is flexed. She has her knees drawn up to her chest. She is flailing about on the stretcher and moaning loudly. SKIN: Warm and dry. HEAD: Atraumatic. Normocephalic. EYES: Pupils equal and round. Extraocular movements are intact. ENT: No nasal bleeding or discharge. Mucous membranes pink and moist. NECK: Trachea midline. Her neck is immobilized in a hard cervical collar. CARDIOVASCULAR: Regular rate and rhythm. Heart sounds are normal. RESPIRATORY: No accessory muscle use. Lungs are clear with full air movement throughout. MUSCULOSKELETAL: No obvious deformities. No edema. She is moving all 4 extremities equally. She has her knees pulled up to her chest. She does not seem to be having any difficulty at all moving her legs. NEUROLOGICAL: Awake and alert. No obvious cranial nerve deficits. Motor grossly within normal limits. Normal speech. PSYCHIATRIC: Inappropriate mood and affect. Moaning loudly. Data Data Last Documented VS Vital Signs Date Time Temp Pulse Resp B/P Pulse Ox O2 Delivery O2 Flow Rate FiO2 09/12/16 09:14 98.1 99 20 181/97 96 Orders Lorazepam Inj (Ativan Inj) (09/12/16 09:45) Urinalysis - C+S If Indicated (09/12/16 10:16) MDM Medical Decision Making Medical Screen Exam Complete: Yes Emergency Medical Condition: Yes Medical Record Reviewed: Yes (I have reviewed her records. She was seen here yesterday and given a Medrol Dosepak. She was seen here in July for frequent falls. She reported moderate to the urinating at that time.) Differential Diagnosis Differential diagnosis of leg pain includes but is not limited to lumbar radiculopathy, arthritis, myalgias, DVT. Differential diagnosis of neck pain includes but is not limited to neck strain, cervical spine fracture, osteoarthritis, spinal stenosis. Narrative Course Patient presents via [facility] complaining with neck pain and low back pain radiating to the right leg. She has had recent neck surgery and a known history of sciatica. Her symptoms are unchanged from previous. She did sustain a fall this morning but the symptoms were present prior to the fall. The patient is very histrionic. We will check her urine for possible UTI. She has been given Ativan. 10:40 AM The patient has now crawled out of the end of the bed. I had just informed her that I would not be giving her narcotics. Diagnosis Primary Impression: Sciatica of right side Additional Instructions: Follow-up with your pain management doctor or neurosurgeon for continued management of your sciatica. Disposition: 01 DISCHARGE HOME Condition: Stable Shari Villareal MD Sep 12, 2016 10:16
[2016-09-12 10:54] LABS: BLOOD, URINE NEG (NEG); COMMENT (UR) CATH-CULT NOT IND; CULTURE IF INDICATED CATH CULTURE NOT IND; GLUCOSE,URINE NEG (NEG); KETONE, URINE NEG (NEG); MUCUS URINE FEW /lpf (OCC); NITRITE,URINE NEG (NEG); SQUAMOUS EPITHELIAL CELL URINE <1 /hpf (0-5); URINE COLOR YELLOW (YELLW/STRAW)
--- NOTE | 2016-09-12 11:40 | PD ---
Physical Exam Narrative The nurse called the patient's daughter to give her report prior to discharge. The patient's daughter would like for us to completely work the patient up. I have subsequently ordered a CT of her head and neck and lumbar spine. I have ordered basic labs. She had already had a UA done. I added a drug screen. Data Data Last Documented VS Vital Signs Date Time Temp Pulse Resp B/P Pulse Ox O2 Delivery O2 Flow Rate FiO2 09/12/16 09:14 98.1 99 20 181/97 96 Orders Lorazepam Inj (Ativan Inj) (09/12/16 09:45) Urinalysis - C+S If Indicated (09/12/16 10:16) Ct Brain W/O Iv Contrast(Rout) (09/12/16 11:11) Ct Cerv Spine W/O Contrast (09/12/16 11:11) Ct Lumb Spine W/O Contrast (09/12/16 11:11) Electrocardiogram (09/12/16 11:12) Ammonia (09/12/16 11:12) Complete Blood Count With Diff (09/12/16 11:12) Comprehensive Metabolic Panel (09/12/16 11:12) Creatine Kinase (Cpk) (09/12/16 11:12) Troponin I (09/12/16 11:12) Drug Screen, Random Urine (09/12/16 11:12) Labs Laboratory Tests Test 09/12/16 09/12/16 09/12/16 10:36 11:25 11:27 Urine Color YELLOW Urine Turbidity HAZY Urine pH 7.0 Urine Specific [place] 1.017 Urine Protein 30 mg/dL Urine Glucose (UA) NEG mg/dL Urine Ketones NEG mg/dL Urine Occult Blood NEG Urine Nitrite NEG Urine Bilirubin NEG Urine Urobilinogen LESS THAN 2.0 MG/DL Urine Leukocyte Esterase NEG Urine RBC 1 /hpf Urine WBC LESS THAN 1 /hpf Urine Squamous Epithelial <1 /hpf Cells Urine Amorphous Sediment RARE Urine Mucus FEW /lpf Microscopic Urinalysis Comment CATH-CULT NOT IND Urine Opiates Screen NEG Urine Barbiturates Screen NEG Urine Amphetamines Screen NEG Urine Benzodiazepines Screen NEG Urine Cocaine Screen NEG Urine Cannabinoids Screen NEG White Blood Count 11.6 TH/MM3 Red Blood Count 4.47 MIL/MM3 Hemoglobin 12.4 GM/DL Hematocrit 36.9 % Mean Corpuscular Volume 82.5 FL Mean Corpuscular Hemoglobin 27.7 PG Mean Corpuscular Hemoglobin 33.6 % Concent Red Cell Distribution Width 14.5 % Platelet Count 291 TH/MM3 Mean Platelet Volume 8.4 FL Neutrophils (%) (Auto) % Lymphocytes (%) (Auto) % Monocytes (%) (Auto) % Eosinophils (%) (Auto) % Basophils (%) (Auto) % Neutrophils # (Auto) TH/MM3 Lymphocytes # (Auto) TH/MM3 Monocytes # (Auto) TH/MM3 Eosinophils # (Auto) TH/MM3 Basophils # (Auto) TH/MM3 CBC Comment AUTO DIFF Differential Total Cells 100 Counted Neutrophils % (Manual) 78 % Lymphocytes % 15 % Monocytes % 7 % Neutrophils # (Manual) 9.0 TH/MM3 Differential Comment FINAL DIFF MANUAL Platelet Estimate NORMAL Platelet Morphology Comment NORMAL Sodium Level 141 MEQ/L Potassium Level 3.5 MEQ/L Chloride Level 105 MEQ/L Carbon Dioxide Level 27.1 MEQ/L Anion Gap 9 MEQ/L Blood Urea Nitrogen 12 MG/DL Creatinine 0.64 MG/DL Estimat Glomerular Filtration 92 ML/MIN Rate Random Glucose 90 MG/DL Calcium Level 9.6 MG/DL Total Bilirubin 0.4 MG/DL Aspartate Amino Transf 20 U/L (AST/SGOT) Alanine Aminotransferase 21 U/L (ALT/SGPT) Alkaline Phosphatase 106 U/L Total Creatine Kinase 168 U/L Troponin I LESS THAN 0.02 NG/ML Total Protein 7.5 GM/DL Albumin 3.9 GM/DL Ammonia LESS THAN 10 MCMOL/L MDM Supervised Visit with RENETTA: No Narrative Course CBC & BMP Diagram 09/12/16 11:25 Tox screen is negative. Cardiac enzymes are negative. Ammonia normal. LFTs are all normal. CTs of her head, neck and lumbar spine are all negative for acute process. She does have hardware in both her neck and her back. Diagnosis Primary Impression: Sciatica of right side Additional Instruction: Follow-up with your pain management doctor or neurosurgeon for continued management of your sciatica. Disposition: 01 DISCHARGE HOME Condition: Stable Shari Villareal MD Sep 12, 2016 11:40
[2016-09-12 11:56] LABS: HEMATOCRIT 36.9 % (35.0-46.0); MEAN CELL VOLUME 82.5 FL (80.0-100.0); MEAN CORPUSCULAR HEMOGLOBIN 27.7 PG (27.0-34.0); MEAN CORPUSCULAR HGB CONC 33.6 % (32.0-36.0); PLATELET COUNT 291 TH/MM3 (150-450); RED BLOOD COUNT 4.47 MIL/MM3 (4.00-5.30); RED CELL DISTRIBUTION WIDTH 14.5 % (11.6-17.2); WHITE BLOOD COUNT 11.6 TH/MM3 (4.0-11.0)
[2016-09-12 12:04] LABS: AMPHETAMINE, URINE NEG (NEG); BARBITURATES, URINE NEG (NEG); COCAINE, URINE NEG (NEG)
[2016-09-12 12:10] LABS: HEMO FLAGS AUTO DIFF
[2016-09-12 12:19] LABS: ALT (GPT) 21 U/L (10-53); ANION GAP 9 MEQ/L (5-15); AST (GOT) 20 U/L (15-37); BICARBONATE 27.1 MEQ/L (21.0-32.0); BLOOD UREA NITROGEN 12 MG/DL (7-18); CHLORIDE 105 MEQ/L (98-107); GLOMERULAR FILTRATION RATE 92 ML/MIN (>89); POTASSIUM 3.5 MEQ/L (3.5-5.1); SODIUM (NA) 141 MEQ/L (136-145)
[2016-09-12 12:22] LABS: ALKALINE PHOSPHATASE 106 U/L (45-117); CREATINE KINASE 168 U/L (26-192); TOTAL BILIRUBIN ADULT 0.4 MG/DL (0.2-1.0)
[2016-09-12 12:48] LABS: PLATELET ESTIMATE SMEAR NORMAL (NORMAL); PLATELET MORPHOLOGY NORMAL (NORMAL); POLYS (SEG NEUTROPHILS) 78 % (16-70); SCAN/DIFF FINAL DIFF MANUAL; WBC DIFF SAMPLE 100
--- NOTE | 2016-09-12 12:58 | RADRPT ---
EXAM DATE/TIME: 09/12/2016 12:32 [facility] COMPARISON: CT BRAIN W/O CONTRAST, August 05, 2016, 0:18. INDICATIONS : Trauma; fall, posterior head pain. RADIATION DOSE: 33.96 CTDIvol (mGy) MEDICAL HISTORY : Hypertension. Fibromyalgia. SURGICAL HISTORY : Hysterectomy. ENCOUNTER: Initial ACUITY: 1 day PAIN SCALE: 6/10 LOCATION: Bilateral occipital TECHNIQUE: Multiple contiguous axial images were obtained of the head. Using automated exposure control and adj ustment of the mA and/or kV according to patient size, radiation dose was kept as low as reasonably a chievable to obtain optimal diagnostic quality images. FINDINGS: CEREBRUM: The ventricles are normal for age. No evidence of midline shift, mass lesion, hemorrhage or acute in farction. No extra-axial fluid collections are seen. POSTERIOR FOSSA: The cerebellum and brainstem are intact. The 4th ventricle is midline. The cerebellopontine angle i s unremarkable. EXTRACRANIAL: The visualized portion of the orbits is intact. SKULL: The calvaria is intact. No evidence of skull fracture. CONCLUSION: No acute disease. Bakari Saxena MD FACR on September 12, 2016 at 12:56 Board Certified Radiologist. This report was verified electronically.
--- NOTE | 2016-09-12 13:24 | RADRPT ---
EXAM DATE/TIME: 09/12/2016 12:32 [facility] COMPARISON: No previous studies available for comparison. INDICATIONS : Trauma; fall, neck pain. RADIATION DOSE: 24.73 CTDIvol (mGy) MEDICAL HISTORY : Hypertension. Fibromyalgia. SURGICAL HISTORY : Hysterectomy. Fusion, cervical. ENCOUNTER: Initial ACUITY: 1 day PAIN SCALE: 6/10 LOCATION: neck TECHNIQUE: Volumetric scanning of the cervical spine was performed. Multiplanar reconstructions in the sagittal, coronal and oblique axial planes were performed. Using automated exposure control and adjustment o f the mA and/or kV according to patient size, radiation dose was kept as low as reasonably achievable to obtain optimal diagnostic quality images. FINDINGS: VERTEBRAE: There is an anterior fusion plate with intervening bone graft at C5-C6 and C6-C7. Vertebral body heig hts are maintained throughout. ALIGNMENT: There is straightening of the cervical spine. A minimal grade 1 anterolisthesis of C4 on C5. C2-C3: The bony spinal canal is normal in size. No evidence of disc bulge or herniation. Bony uncovertebral hypertrophy is observed generat mild narrowing of the right neural foramen. Left remains patent. C3-C4: The bony spinal canal is normal in size. No evidence of disc bulge or herniation. Bony uncovertebral hypertrophy generates moderate left neural foraminal narrowing. The right remains patent. There is s ome narrowing of the left lateral recess as well. Right lateral recess remains patent. C4-C5: The bony spinal canal is normal in size. No evidence of disc bulge or herniation. Prominent bony unc overtebral hypertrophy is seen bilaterally generating moderate narrowing of both neural foramen. Late ral recesses remain patent. C5-C6: This level is fused anteriorly. Prominent bony uncovertebral hypertrophy generates moderate narrowing of the neural foramen bilaterally. Central canal is patent. C6-C7: This level is fused anteriorly. Prominent bony uncovertebral hypertrophy is more pronounced on the ri ght. Moderate right and mild left neural foraminal narrowing noted. The joint canal and lateral reces ses are patent. C7-T1: The bony spinal canal is normal in size. No evidence of disc bulge or herniation. The neural forami na are bilaterally patent. CONCLUSION: 1. No fracture or dislocation. 2. Anterior fusion from C5-C7. 3. Multilevel degenerative changes largely neural foraminal related as detailed at each level in the above discussion. Juan A Jordan Jr., MD on September 12, 2016 at 13:12 Board Certified Radiologist. This report was verified electronically.
--- NOTE | 2016-09-12 13:35 | RADRPT ---
EXAM DATE/TIME: 09/12/2016 12:38 [facility] COMPARISON: No previous studies available for comparison. INDICATIONS : Trauma; fall, lower back pain. RADIATION DOSE: 35.86 CTDIvol (mGy) MEDICAL HISTORY : Hypertension. Fibromyalgia. SURGICAL HISTORY : Fusion, lumbar. Hysterectomy. ENCOUNTER: Initial ACUITY: 1 day PAIN SCALE: 7/10 LOCATION: lower back. TECHNIQUE: Volumetric scanning of the lumbar spine was performed. Multiplanar reconstructions in the sagittal, coronal and oblique axial planes were performed. Using automated exposure control and adjustment of the mA and/or kV according to patient size, radiation dose was kept as low as reasonably achievable t o obtain optimal diagnostic quality images. FINDINGS: VERTEBRAE: Bilateral posterior transpedicular fixation with vertical stabilizing bars extending from L1-S1. This generates beam hardening artifact degrading the study somewhat. Postsurgical changes are seen involv ing the posterior elements at these levels. An anterior compression fracture is seen involving L1. Re maining vertebral body heights are maintained. Intervening bone graft devices noted throughout. ALIGNMENT: A grade 1 anterolisthesis of L5 on S1.. T12-L1: There is disc space narrowing with vacuum disc phenomenon. A minimal broad-based bulge. Central canal and lateral recesses are patent. Neural foramina are patent. Prominent bony hypertrophy of the facet s. L1-L2: Posterior fixation. With intervening bone graft device. Beam hardening artifact from the hardware. Ce ntral canal is patent. Neural foraminal narrowing is noted bilaterally more pronounced on the left. A ir is noted within the intermediate disc space. L2-L3: Posterior fixation. With intervening bone graft device. Beam hardening artifact from the hardware. Ce ntral canal is patent. Neural foraminal narrowing is noted bilaterally more pronounced on the left. A ir is noted within the intermediate disc space. L3-L4: Posterior fixation. With intervening bone graft device. Beam hardening artifact from the hardware. Ce ntral canal is patent. Neural foraminal narrowing is noted bilaterally more pronounced on the left. A ir is noted within the intermediate disc space. L4-L5: Posterior fixation. With intervening bone graft device. Beam hardening artifact from the hardware. Ce ntral canal is patent. Neural foraminal narrowing is noted bilaterally more pronounced on the left. A ir is noted within the intermediate disc space. L5-S1: Posterior fixation. With intervening bone graft device. Beam hardening artifact from the hardware. Ce ntral canal is patent. Neural foraminal narrowing is noted bilaterally more pronounced on the left. A ir is noted within the intermediate disc space. CONCLUSION: 1. Posterior fixation from L1-S1. The hardware generates beam hardening artifact which limits the exa m. 2. No fracture or dislocation. Central canal is patent throughout. 3. Anterolisthesis of L5 on S1. Juan A Jordan Jr., MD on September 12, 2016 at 13:23 Board Certified Radiologist. This report was verified electronically.
[2016-09-12 14:00] VITALS: BP 166/80
--- NOTE | 2016-09-13 13:38 | EKG ---
Date Performed: 09/12/2016 Time Performed: 12:53:55 PTAGE: 71 years EKG: Sinus rhythm WITH OCCASIONAL SUPRAVENTRICULAR PREMATURE COMPLEXES BORDERLINE ECG Compared to prior tracing no sig nificant change DOCTOR: Marcello Platt Interpretating Date/Time 09/13/2016 13:35:44
== END 2016-09-12 15:03 | disposition home or self-care (01) ==
LOC: NEPA 09:01
DX: M54.31 Sciatica, right side (principal); M54.2 Cervicalgia; M79.7 Fibromyalgia; I10 Essential (primary) hypertension; R94.31 Abnormal electrocardiogram [ECG] [EKG]
CPT/HCPCS: 70450; 72125; 72131; 80053; 80307; 81001; 82140; 82550; 84484; 85007; 85027; 93005; 96372; 99284; J2060

== ENCOUNTER 2016-11-29 13:50 | Emergency (ER) | payer MEDICARE ==
[2016-11-29 13:54] VITALS: BP 145/70; PULSE 75; RESP 18; TEMP 98.1; O2SAT 95
--- NOTE | 2016-11-29 14:10 | PD ---
Physical Exam Time Seen by Provider: 14:08 Narrative 71yo F c/o left lower leg pain and swelling since yesterday. Hs been being evaluated for L knee pain x [address] Martell. Denies hx DVT. Patient seen in triage. VS reviewed. Awaiting bed placement. Data Data Last Documented VS Vital Signs Date Time Temp Pulse Resp B/P Pulse Ox O2 Delivery O2 Flow Rate FiO2 11/29/16 13:54 98.1 75 18 145/70 95 Room Air MDM Supervised Visit with RENETTA: Harper Nguyen Nov 29, 2016 14:10
--- NOTE | 2016-11-29 14:18 | PD ---
HPI . Left leg edema for the past 2 months, worse over the past 2 days Chief Complaint: Edema Time Seen by Provider: 14:18 Travel History International Travel<30 days: No Contact w/Intl Traveler<30days: No Traveled to known affect area: No History of Present Illness HPI 71-year-old female with history of chronic back pain and 4 back surgeries in the past, neck issues with neck brace in place secondary to recent cervical spine fusion, hypertension hyperlipidemia here with complaints of left leg pain and edema. Patient reports 2 months worth of left leg pain as well as knee pain that she has been seeing Dr. Byrne for. She tells me that she's always had some level of edema in this left lower extremity, however for the past 2 days it has significantly worsened. She also reports increased pain and rates it as 8/10 on a pain scale. Patient also has some bruising to her right lower extremity and does not recall any type of trauma to the area. She tells me that she takes Percocet every 6 hours and most recently took it 2 hours ago. She admits to multiple drug allergies and is cautious about using pain meds here in the emergency department. She was concerned about a blood clot, therefore she decided to come into the emergency department for further workup and evaluation. She denies any chest pain, nausea, vomiting, shortness of breath or abdominal pain. She has no other complaints. She denies any traveling or sedentary lifestyle. PFSH Past Medical History Arthritis: Yes Blood Disorders: No Anxiety: Yes Depression: Yes Cancer: No Cardiovascular Problems: No High Cholesterol: Yes Chest Pain: No Cerebrovascular Accident: Yes Diabetes: No Diminished Hearing: No Endocrine: No Fibromyalgia: Yes Gastrointestinal Disorders: Yes (OCCASIONAL CONSTIPATION) GERD: Yes Genitourinary: No Headaches: No Hepatitis: No Hiatal Hernia: No Hypertension: Yes Immune Disorder: No Implanted Vascular Access Dvce: No Musculoskeletal: Yes (degenerative lumbosacral intravertebral disk disease, SPINAL STENOSIS) Neurologic: No Psychiatric: No Reproductive: Yes (HYSTERECTOMY) Respiratory: No Immunizations Current: Yes Seizures: No Thyroid Disease: No Menopausal: Yes Past Surgical History Abdominal Surgery: Yes (ABDOMINOPLASTY) AICD: No Appendectomy: Yes Body Medical Devices: HARDWARE RIGHT ANKLE, LUMBAR SPINE HARDWARE Gynecologic Surgery: Yes (HYSTERECTOMY) Hysterectomy: Yes Joint Replacement: No Neurologic Surgery: Yes (MYELOGRAM 2012) Oral Surgery: Yes (TONSILLECTOMY) Pacemaker: No Other Surgery: Yes Social History Alcohol Use: No Tobacco Use: No Substance Use: No Allergies-Medications (Allergen,Severity, Reaction): Coded Allergies: Cephalosporins (Verified Allergy, Severe, Anaphylaxis, 11/29/16) Clindamycin (Verified Allergy, Severe, rash and heavy chest, 11/29/16) Contrast Media (Verified Allergy, Severe, SWELLING, 11/29/16) Erythromycin (Verified Allergy, Severe, Anaphylaxis, 11/29/16) Levaquin (Verified Allergy, Severe, breathing problems, 11/29/16) Morphine (Verified Allergy, Severe, Restlessness, 11/29/16) Penicillin (Verified Allergy, Severe, Anaphylaxis, 11/29/16) Sulfa (Verified Allergy, Severe, Anaphylaxis, 11/29/16) Tetracycline (Verified Allergy, Severe, Anaphylaxis, 11/29/16) Vioxx (Verified Allergy, Severe, Anaphylaxis, 11/29/16) Hydrocodone (Verified Allergy, Intermediate, Rash, 11/29/16) Reported Meds & Prescriptions Reported Meds & Active Scripts Active Medrol Dosepak (Methylprednisolone) 4 Mg Dspk 4 Mg PO DIRECTED Per Pharmacist direction Reported Lorazepam 1 Mg Tab 1 Mg PO Q8H PRN Atenolol 50 Mg Tab 50 Mg PO BID Zolpidem (Zolpidem Tartrate) 10 Mg Tab 10 Mg PO HS PRN Zofran (Ondansetron HCl) 4 Mg Tab 4 Mg PO Q8HR PRN Vitamin D (Cholecalciferol) 2,000 Unit Tab 2,000 DAILY Protonix (Pantoprazole Sodium) 40 Mg Tab 40 Mg PO DAILY PRN Percocet (Oxycodone-Acetaminophen) 10-325 mg Tab 1 Tab PO Q6H PRN Magnesium Oxide 400 Mg Cap 400 Mg DAILY Lyrica (Pregabalin) 150 Mg Cap 150 Mg PO TID Klonopin (Clonazepam) 1 Mg Tab 1 Mg PO BID Flexeril (Cyclobenzaprine HCl) 10 Mg Tab 10 Mg PO TID Fentanyl Patch 72 HR (Fentanyl) 100 Mcg/Hr Patch 100 Mcg T-DERMAL EVERY OTHER DAY Remove old patch when new one placed. Effexor (Venlafaxine HCl) 75 Mg Tab 75 Mg PO TID Catapres (Clonidine) 0.1 Mg Tab 0.1 Mg PO TID PRN Procardia XL (Nifedipine) 60 Mg Tab 60 Mg PO BID Review of Systems General / Constitutional: No: Fever Eyes: No: Visual changes HENT: No: Headaches Cardiovascular: No: Chest Pain or Discomfort Respiratory: No: Shortness of Breath Gastrointestinal: No: Abdominal Pain Genitourinary: No: Dysuria Musculoskeletal: Positive: Pain (left leg) Skin: Positive Other (edema left leg), No Rash Neurologic: No: Weakness Psychiatric: No: Depression Endocrine: No: Polydipsia Hematologic/Lymphatic: No: Easy Bruising Physical Exam Narrative GENERAL: AAO x 3, no acute distress, Well-nourished, well-developed patient. SKIN: Warm and dry. No visible rashes or bruising. right medial leg with scattered ecchymosis that is now clearing HEAD: Normocephalic and atraumatic. EYES: No scleral icterus. No injection or drainage. ENT: No nasal drainage noted. Mucous membranes pink. Airway patent. NECK: Supple, trachea midline. No JVD. CARDIOVASCULAR: Regular rate and rhythm without murmurs, gallops, or rubs. RESPIRATORY: Breath sounds equal bilaterally. No accessory muscle use. No rhonchi or rales. GASTROINTESTINAL: Abdomen soft, non-tender, nondistended. EXTREMITIES: No cyanosis, trace pedal edema in left foot, left anterior leg with dependent edema, BACK: Nontender without obvious deformity. No CVA tenderness. 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 Data Data Last Documented VS Vital Signs Date Time Temp Pulse Resp B/P Pulse Ox O2 Delivery O2 Flow Rate FiO2 11/29/16 14:25 17 99 Room Air 11/29/16 13:54 98.1 75 145/70 Orders Us Leg Venous Doppler Bilat (11/29/16 14:23) MDM Medical Decision Making Medical Screen Exam Complete: Yes Emergency Medical Condition: Yes Medical Record Reviewed: Yes Differential Diagnosis Acute on chronic leg pain, DVT, lymphedema, less likely fracture, hypercoagulable state, Narrative Course 71-year-old female here with complaints of acute on chronic leg pain and some worsening edema. Ultrasound has been ordered to rule out DVT. There is no evidence of DVT in her bilateral lower extremities. Patients pain and swelling is likely related to her chronic issues. She will ultimately need to follow-up with her orthopedic physician. She already takes pain medications on a daily basis and can use these. I had a discussion with her regarding these results and she will follow up with ortho. Patient verbalized understanding of instructions, questions were answered, and thanked me for their care. I advised them if their condition worsens, please return to the nearest emergency room for further care. Diagnosis Primary Impression: Left leg pain Patient Instructions: General Instructions Additional Instructions: Please follow-up with Dr. Byrne. Return to the emergency department for any worsening of your condition. Med/Other Pt SpecificInfo: No Change to Meds Disposition: 01 DISCHARGE HOME Condition: Stable Deborah Reed Nov 29, 2016 14:18
--- NOTE | 2016-11-29 16:12 | RADRPT ---
EXAM DATE/TIME: 11/29/2016 15:38 [facility] COMPARISON: No previous studies available for comparison. INDICATIONS : Bilateral leg edema. MEDICAL HISTORY : Hypercholesterolemia. Hypertension. Osteoarthritis. CVA. GERD. Fibromyalgia. Depression. Anxiety. SURGICAL HISTORY : Tonsillectomy.Appendectomy. Hysterectomy.Myelogram. Abdominoplasty. Lumbar back. Right ankle. ENCOUNTER: Initial ACUITY: 4 - 6 days PAIN SCORE: 8/10 LOCATION: Bilateral leg. TECHNIQUE: Venous ultrasound of the left and right leg was performed from the inguinal ligament to the proximal calf. Real-time, color Doppler and spectral tracing, compression and augmentation techniques were us ed. FINDINGS: RIGHT LEG: There is normal compressibility of the deep venous system from the inguinal region to the proximal ca lf. No echogenic clot is seen in the lumen of the common femoral, femoral, popliteal, and posterior tibial veins. There is a normal response of the venous system to proximal and distal augmentation an d respiration. LEFT LEG: There is normal compressibility of the deep venous system from the inguinal region to the proximal ca lf. No echogenic clot is seen in the lumen of the common femoral, femoral, popliteal, and posterior tibial veins. There is a normal response of the venous system to proximal and distal augmentation an d respiration. CONCLUSION: No evidence of deep venous thrombosis within the lower extremities. Gonzalo Phillips MD on November 29, 2016 at 16:09 Board Certified Radiologist. This report was verified electronically.
[2016-11-29 16:40] VITALS: BP 130/78; TEMP 97.7
== END 2016-11-29 16:40 | disposition home or self-care (01) ==
LOC: NEPD 14:00
DX: M79.605 Pain in left leg (principal); R60.0 Localized edema; I10 Essential (primary) hypertension; M79.7 Fibromyalgia
CPT/HCPCS: 93970; 99284

== ENCOUNTER 2016-12-15 07:16 | Emergency (ER) | payer MEDICARE ==
[~2016-12-15] VITALS: Ht 152.4 cm; Wt 65.0 kg
[2016-12-15 07:19] VITALS: BP 157/85; PULSE 80; RESP 20; TEMP 98.1; O2SAT 96
[2016-12-15] MEDS ORDERED: SODIUM CHLOR 0.9% 1000 ML INJ 1,000 ML IV SCH (08:05)
[2016-12-15 08:11] VITALS: BP 160/75; PULSE 81; RESP 16; O2SAT 99
[2016-12-15] MEDS ORDERED: TRAM50TA PO (08:12)
[2016-12-15 08:13] VITALS: RESP 16; O2SAT 99
[2016-12-15] MEDS ORDERED: traMADol HCL 50 MG TAB PO ONE (08:15)
[2016-12-15] MEDS: SODIUM CHLORIDE 0.9% FLUSH 5 ML FLUSH IV FLUSH PRN ×2 (08:15→09:17)
[2016-12-15] MEDS ORDERED: clonazePAM 1 MG TAB PO ONE (08:15)
--- NOTE | 2016-12-15 08:29 | PD ---
HPI Chief Complaint: Altered Mental Status Time Seen by Provider: 07:56 Travel History International Travel<30 days: No Contact w/Intl Traveler<30days: No Traveled to known affect area: No History of Present Illness HPI This is a 71-year-old female who presents to the emergency department having wandered out of her house confused this morning. This lasted for a couple minutes, constant, severe. Her daughter reports that ever since she fell a couple of days ago she's been a little more confused, and they're not sure if she hit her head. Right now she is at her baseline and is acting normally. She 's not been sick and has had no fevers or chills. She has had a problem with her left knee and has had recurrent swelling. Her orthopedic doctor has been draining fluid off her knee every week and the fluid assisted negative for septic arthritis and gout. Patient also had a cervical fusion 3 months ago. She takes multiple pain medications including Percocet, Fentanyl patch, Klonopin , and she recently was started on tramadol due to her knee. Her daughter suspects her symptoms may be related to her medications. She also thinks she may have a urinary tract infection. PFSH Past Medical History Hx Anticoagulant Therapy: No Arthritis: Yes Blood Disorders: No Anxiety: Yes Depression: Yes Cardiovascular Problems: Yes (HTN ) High Cholesterol: Yes Chest Pain: No Cerebrovascular Accident: Yes Diabetes: No Diminished Hearing: No Fibromyalgia: Yes Gastrointestinal Disorders: Yes (OCCASIONAL CONSTIPATION) GERD: Yes Genitourinary: No Headaches: No Hepatitis: No Hiatal Hernia: No Hypertension: Yes Immune Disorder: No Implanted Vascular Access Dvce: No Medical other: Yes (FIBROMYALGIA, OA) Musculoskeletal: Yes (degenerative lumbosacral intravertebral disk disease, SPINAL STENOSIS) Neurologic: No Psychiatric: No Reproductive: Yes (HYSTERECTOMY) Respiratory: No Immunizations Current: Yes Seizures: No Thyroid Disease: No Tetanus Vaccination: > 5 Years Influenza Vaccination: Yes Menopausal: Yes Past Surgical History Abdominal Surgery: Yes (ABDOMINOPLASTY) AICD: No Appendectomy: Yes Body Medical Devices: HARDWARE RIGHT ANKLE, LUMBAR SPINE HARDWARE Gynecologic Surgery: Yes (HYSTERECTOMY) Hysterectomy: Yes Joint Replacement: No Neurologic Surgery: Yes (MYELOGRAM 2013) Oral Surgery: Yes (TONSILLECTOMY) Pacemaker: No Other Surgery: Yes Social History Alcohol Use: No Tobacco Use: No Substance Use: No Allergies-Medications (Allergen,Severity, Reaction): Coded Allergies: Cephalosporins (Verified Allergy, Severe, Anaphylaxis, 12/15/16) Clindamycin (Verified Allergy, Severe, rash and heavy chest, 12/15/16) Contrast Media (Verified Allergy, Severe, SWELLING, 12/15/16) Erythromycin (Verified Allergy, Severe, Anaphylaxis, 12/15/16) Levaquin (Verified Allergy, Severe, breathing problems, 12/15/16) Morphine (Verified Allergy, Severe, Restlessness, 12/15/16) Penicillin (Verified Allergy, Severe, Anaphylaxis, 12/15/16) Sulfa (Verified Allergy, Severe, Anaphylaxis, 12/15/16) Tetracycline (Verified Allergy, Severe, Anaphylaxis, 12/15/16) Vioxx (Verified Allergy, Severe, Anaphylaxis, 12/15/16) Hydrocodone (Verified Allergy, Intermediate, Rash, 12/15/16) Reported Meds & Prescriptions Reported Meds & Active Scripts Active Reported Tramadol (Tramadol HCl) 50 Mg Tab 50 Mg PO Q6H PRN Lorazepam 1 Mg Tab 1 Mg PO Q8H PRN Atenolol 50 Mg Tab 50 Mg PO BID Zolpidem (Zolpidem Tartrate) 10 Mg Tab 10 Mg PO HS PRN Zofran (Ondansetron HCl) 4 Mg Tab 4 Mg PO Q8HR PRN Vitamin D (Cholecalciferol) 2,000 Unit Tab 2,000 DAILY Protonix (Pantoprazole Sodium) 40 Mg Tab 40 Mg PO DAILY PRN Percocet (Oxycodone-Acetaminophen) 10-325 mg Tab 1 Tab PO Q6H PRN Magnesium Oxide 400 Mg Cap 400 Mg DAILY Lyrica (Pregabalin) 150 Mg Cap 150 Mg PO TID Klonopin (Clonazepam) 1 Mg Tab 1 Mg PO BID Flexeril (Cyclobenzaprine HCl) 10 Mg Tab 10 Mg PO TID Fentanyl Patch 72 HR (Fentanyl) 100 Mcg/Hr Patch 100 Mcg T-DERMAL EVERY OTHER DAY Remove old patch when new one placed. Effexor (Venlafaxine HCl) 75 Mg Tab 75 Mg PO TID Catapres (Clonidine) 0.1 Mg Tab 0.1 Mg PO TID PRN Procardia XL (Nifedipine) 60 Mg Tab 60 Mg PO BID Review of Systems Except as stated in HPI: all other systems reviewed are Neg Physical Exam Narrative GENERAL:Well appearing, no acute distress SKIN: Ecchymoses over the right sternum and over the left posterior aspect of the shoulder HEAD: Atraumatic. Normocephalic. EYES: Pupils equal and round. No injection or drainage. ENT: Moist mucous membranes NECK: Trachea midline. CARDIOVASCULAR: Regular rate and rhythm. No murmur appreciated. RESPIRATORY: Clear to auscultation. Breath sounds equal bilaterally. GASTROINTESTINAL: Abdomen soft, non-tender, nondistended. MUSCULOSKELETAL: Effusion and some warmth of the left knee with ability to flex and extend the knee with some pain. NEUROLOGICAL: Awake and alert. No obvious cranial nerve deficits. Moving all extremities. PSYCHIATRIC: Appropriate mood and affect; insight and judgment normal. Data Data Last Documented VS Vital Signs Date Time Temp Pulse Resp B/P Pulse Ox O2 Delivery O2 Flow Rate FiO2 12/15/16 09:08 82 17 139/73 98 Room Air 12/15/16 07:19 98.1 Orders Complete Blood Count With Diff (12/15/16 08:05) Comprehensive Metabolic Panel (12/15/16 08:05) Ct Brain W/O Iv Contrast(Rout) (12/15/16 08:05) Blood Glucose (12/15/16 08:05) Ecg Monitoring (12/15/16 08:05) Iv Access Insert/Monitor (12/15/16 08:05) Oximetry (12/15/16 08:05) Sodium Chloride 0.9% Flush (Ns Flush) (12/15/16 08:15) Sodium Chlor 0.9% 1000 Ml Inj (Ns 1000 M (12/15/16 08:05) Alcohol (Ethanol) (12/15/16 08:05) Ct Cerv Spine W/O Contrast (12/15/16 ) Urinalysis - C+S If Indicated (12/15/16 08:05) Cath For Specimen (12/15/16 08:05) Chest, Single Ap (12/15/16 ) Clonazepam (Klonopin) (12/15/16 08:15) Tramadol (Ultram) (12/15/16 08:15) Oxycodone-Acetamin 5-325 Mg (Percocet (12/15/16 09:30) Labs Laboratory Tests Test 12/15/16 08:25 White Blood Count 9.3 TH/MM3 Red Blood Count 5.19 MIL/MM3 Hemoglobin 14.1 GM/DL Hematocrit 43.0 % Mean Corpuscular Volume 82.9 FL Mean Corpuscular Hemoglobin 27.3 PG Mean Corpuscular Hemoglobin 32.9 % Concent Red Cell Distribution Width 15.3 % Platelet Count 311 TH/MM3 Mean Platelet Volume 8.4 FL Neutrophils (%) (Auto) 76.2 % Lymphocytes (%) (Auto) 13.8 % Monocytes (%) (Auto) 9.1 % Eosinophils (%) (Auto) 0.5 % Basophils (%) (Auto) 0.4 % Neutrophils # (Auto) 7.1 TH/MM3 Lymphocytes # (Auto) 1.3 TH/MM3 Monocytes # (Auto) 0.8 TH/MM3 Eosinophils # (Auto) 0.0 TH/MM3 Basophils # (Auto) 0.0 TH/MM3 CBC Comment DIFF FINAL Differential Comment Urine Color YELLOW Urine Turbidity CLEAR Urine pH 5.5 Urine Specific [place] 1.026 Urine Protein TRACE mg/dL Urine Glucose (UA) NEG mg/dL Urine Ketones NEG mg/dL Urine Occult Blood NEG Urine Nitrite NEG Urine Bilirubin NEG Urine Urobilinogen 2.0 MG/DL Urine Leukocyte Esterase NEG Urine RBC 1 /hpf Urine WBC 1 /hpf Urine Hyaline Casts 1 /lpf Urine Mucus FEW /lpf Microscopic Urinalysis Comment CULT NOT INDICATED Sodium Level 140 MEQ/L Potassium Level 3.7 MEQ/L Chloride Level 103 MEQ/L Carbon Dioxide Level 33.8 MEQ/L Anion Gap 3 MEQ/L Blood Urea Nitrogen 18 MG/DL Creatinine 0.75 MG/DL Estimat Glomerular Filtration 76 ML/MIN Rate Random Glucose 90 MG/DL Calcium Level 9.2 MG/DL Total Bilirubin 0.3 MG/DL Aspartate Amino Transf 13 U/L (AST/SGOT) Alanine Aminotransferase 22 U/L (ALT/SGPT) Alkaline Phosphatase 164 U/L Total Protein 8.1 GM/DL Albumin 4.0 GM/DL Ethyl Alcohol Level LESS THAN 3 MG/DL MDM Medical Decision Making Medical Screen Exam Complete: Yes Emergency Medical Condition: Yes Interpretation(s) Afebrile, no tachycardia, hypertensive No leukocytosis Bicarbonate is 33.8 Alcohol is 3 Urinalysis is negative for infection Last [address] 12/15/16 0805 Signed Impressions: Service Date/Time: Saturday, December 15, 2016 08:28 - CONCLUSION: No acute disease. Darius Claudio MD Chest X-Ray 12/15/16 0000 Signed Impressions: Service Date/Time: Thursday, December 15, 2016 08:36 - CONCLUSION: No acute disease. Darius Claudio MD Cervical Spine CT 12/15/16 0000 Signed Impressions: Service Date/Time: Thursday, December 15, 2016 08:28 - CONCLUSION: Moderate degenerative changes and postsurgical changes are identified as before with no evidence for acute fracture. Darius Claudio MD Differential Diagnosis Subdural hematoma, epidural hematoma, subarachnoid hemorrhage, cervical spine fracture, polypharmacy associated delirium, urinary tract infection Narrative Course This is a 71-year-old female who presents to the emergency department having wandered out of her house this morning confused. She is on multiple altering medications including Percocet, fentanyl patch, Klonopin and tramadol. I expressed my concern to the family regarding so much polypharmacy especially at the patient's age and I suspect this is what contributed to the patient's confusion this morning. Labs were obtained which were reassuring. Urinalysis was negative for infection. CT of the head and cervical spine were unremarkable. Patient in the emergency department continued to cry for pain medication despite the fact that she was here primarily because her daughter was concerned that she is altered. I suspect the patient has a severe opiate dependence. I discussed this with the patient's daughter and she said she is going to talk to the primary care physician regarding titration of her medications. I advised that they hold Percocet and only continue fentanyl patch and tramadol until they see the primary care doctor. Diagnosis Primary Impression: Polypharmacy Additional Impression: Opiate dependence Qualified Code: F11.221 - Opioid dependence with intoxication delirium Patient Instructions: General Instructions Additional Instructions: If you develop severe worsening headache, persistent vomiting, numbness, weakness, difficulty walking or difficulty talking return to the emergency department immediately. Follow-up with your primary care physician because I think you're on too many medications with significant side effects. Your pain medications likely need to be titrated down. Stop taking Percocet and only take fentanyl and tramadol as needed for pain. Limit your use of Klonopin as this also can contribute to confusion. Med/Other Pt SpecificInfo: Existing Med Changed Disposition: DISCHARGE HOME Condition: Stable Latisha Holliday MD Dec 15, 2016 08:29
[2016-12-15 08:38] LABS: BLOOD, URINE NEG (NEG); GLUCOSE,URINE NEG (NEG); HYALINE CAST, URINE 1 /lpf (RARE); KETONE, URINE NEG (NEG); MUCUS URINE FEW /lpf (OCC); NITRITE,URINE NEG (NEG); PH, URINE 5.5 (5.0-8.5); URINE COLOR YELLOW (YELLW/STRAW)
--- NOTE | 2016-12-15 08:38 | RADRPT ---
EXAM DATE/TIME: 12/15/2016 08:28 [facility] COMPARISON: No previous studies available for comparison. INDICATIONS : Altered mental status, multiple falls. RADIATION DOSE: 31.89 CTDIvol (mGy) MEDICAL HISTORY : Stroke. Cardiovascular disease Hypertension. SURGICAL HISTORY : Fusion, cervical. ENCOUNTER: Initial ACUITY: 1 day PAIN SCALE: 0/10 LOCATION: cranial TECHNIQUE: Multiple contiguous axial images were obtained of the head. Using automated exposure control and adj ustment of the mA and/or kV according to patient size, radiation dose was kept as low as reasonably a chievable to obtain optimal diagnostic quality images. DICOM format image data is available electro nically for review and comparison. FINDINGS: CEREBRUM: The ventricles are normal for age. No evidence of midline shift, mass lesion, hemorrhage or acute in farction. No extra-axial fluid collections are seen. POSTERIOR FOSSA: The cerebellum and brainstem are intact. The 4th ventricle is midline. The cerebellopontine angle i s unremarkable. EXTRACRANIAL: The visualized portion of the orbits is intact. SKULL: The calvaria is intact. No evidence of skull fracture. CONCLUSION: No acute disease. Darius Claudio MD on December 15, 2016 at 8:35 Board Certified Radiologist. This report was verified electronically.
[2016-12-15 08:39] LABS: AUTOMATED NEUTROPHIL # 7.1 TH/MM3 (1.8-7.7); BASOPHIL % 0.4 % (0.0-2.0); EOSINOPHIL % 0.5 % (0.0-4.0); HEMO FLAGS DIFF FINAL; LYMPH % 13.8 % (9.0-44.0); LYMPHOCYTE # 1.3 TH/MM3 (1.0-4.8); MEAN CELL VOLUME 82.9 FL (80.0-100.0); MEAN CORPUSCULAR HEMOGLOBIN 27.3 PG (27.0-34.0); MEAN CORPUSCULAR HGB CONC 32.9 % (32.0-36.0); MONO % 9.1 % (0.0-8.0); NEUT % 76.2 % (16.0-70.0); PLATELET COUNT 311 TH/MM3 (150-450); RED BLOOD COUNT 5.19 MIL/MM3 (4.00-5.30); RED CELL DISTRIBUTION WIDTH 15.3 % (11.6-17.2); WHITE BLOOD COUNT 9.3 TH/MM3 (4.0-11.0)
[2016-12-15 08:44] LABS: COMMENT (UR) CULT NOT INDICATED; CULTURE IF INDICATED CULT NOT INDICATED
--- NOTE | 2016-12-15 08:53 | RADRPT ---
EXAM DATE/TIME: 12/15/2016 08:28 [facility] COMPARISON: CT CERVICAL SPINE W/O CONTRAST, September 12, 2016, 12:32. INDICATIONS : Multiple falls. RADIATION DOSE: 20.60 CTDIvol (mGy) MEDICAL HISTORY : Stroke. Hypertension. Cardiovascular disease SURGICAL HISTORY : Fusion, cervical. ENCOUNTER: Initial ACUITY: 1 day PAIN SCALE: 0/10 LOCATION: neck TECHNIQUE: Volumetric scanning of the cervical spine was performed. Multiplanar reconstructions in the sagittal, coronal and oblique axial planes were performed. Using automated exposure control and adjustment o f the mA and/or kV according to patient size, radiation dose was kept as low as reasonably achievable to obtain optimal diagnostic quality images. DICOM format image data is available electronically f or review and comparison. FINDINGS: The patient has undergone previous anterior cervical discectomy and intervertebral fusion at C5-C7. T he odontoid process is intact. Moderate multilevel facet hypertrophic changes are seen. There is inte rvertebral disc calcification at C3-4, grade 1 anterolisthesis of C4 on C5 and C7 on T1, where modera te disc space narrowing is again noted. No fractures are seen. Hardware is intact. CONCLUSION: Moderate degenerative changes and postsurgical changes are identified as before with no evidence for acute fracture. Darius Claudio MD on December 15, 2016 at 8:48 Board Certified Radiologist. This report was verified electronically.
--- NOTE | 2016-12-15 08:54 | RADRPT ---
EXAM DATE/TIME: 12/15/2016 08:36 [facility] COMPARISON: CHEST SINGLE AP, July 08, 2013, 18:04. INDICATIONS : Altered mental status. Mulitple falls. MEDICAL HISTORY : Stroke. Cardiovascular disease. Hypertension. SURGICAL HISTORY : Fusion, cervical. ENCOUNTER: Initial ACUITY: 1 day PAIN SCORE: 0/10 LOCATION: Bilateral chest FINDINGS: A single view of the chest demonstrates the lungs to be symmetrically aerated without evidence of mas s, infiltrate or effusion. The cardiomediastinal contours are unremarkable. Osseous structures are intact. ACDF hardware overlies the cervical spine. CONCLUSION: No acute disease. Darius Claudio MD on December 15, 2016 at 8:51 Board Certified Radiologist. This report was verified electronically.
[2016-12-15 08:57] LABS: ALT (GPT) 22 U/L (10-53); ANION GAP 3 MEQ/L (5-15); AST (GOT) 13 U/L (15-37); BICARBONATE 33.8 MEQ/L (21.0-32.0); BLOOD UREA NITROGEN 18 MG/DL (7-18); CHLORIDE 103 MEQ/L (98-107); GLOMERULAR FILTRATION RATE 76 ML/MIN (>89); POTASSIUM 3.7 MEQ/L (3.5-5.1); SODIUM (NA) 140 MEQ/L (136-145)
[2016-12-15 08:59] LABS: ALKALINE PHOSPHATASE 164 U/L (45-117); TOTAL BILIRUBIN ADULT 0.3 MG/DL (0.2-1.0)
[2016-12-15 09:08] VITALS: BP 139/73; PULSE 82; RESP 17; O2SAT 98
[2016-12-15 09:15] VITALS: RESP 16
[2016-12-15] MEDS ORDERED: oxyCODONE/ACETAMINOPHEN 5 MG/325 MG TAB PO ONE (09:30)
[2016-12-15 10:00] VITALS: BP 128/81; TEMP 97.8
== END 2016-12-15 10:00 | disposition home or self-care (01) ==
LOC: NEPE 07:16
DX: F11.221 Opioid dependence with intoxication delirium (principal); Z79.899 Other long term (current) drug therapy; R22.42 Localized swelling, mass and lump, left lower limb; I10 Essential (primary) hypertension; E78.00 Pure hypercholesterolemia, unspecified; Z98.890 Other specified postprocedural states; Z87.39 Personal history of other diseases of the musculoskeletal system and connective tissue; Z86.59 Personal history of other mental and behavioral disorders; Z87.19 Personal history of other diseases of the digestive system; Z86.79 Personal history of other diseases of the circulatory system
CPT/HCPCS: 51703; 70450; 71010; 72125; 80053; 80307; 81001; 85025; 96360; 99285; J7030

== ENCOUNTER 2017-01-08 11:17 | Observation (INO) | payer MEDICARE ==
[2017-01-08] VITALS (8 sets, daily range): BP systolic 134–170; BP diastolic 67–87; PULSE 78–94; RESP 15–20; TEMP 97.9–98.4; O2SAT 96–98
[~2017-01-08] VITALS: Ht 152.4 cm; Wt 65.0 kg
[~2017-01-08 11:17] MED LIST changes: -MEDR4PAK PO; +TRAM50TA PO
[2017-01-08] MEDS ORDERED: SODIUM CHLOR 0.9% 1000 ML INJ 1,000 ML IV SCH (12:49)
--- NOTE | 2017-01-08 12:57 | PD ---
HPI Chief Complaint: Neuro Symptoms/ Deficits Time Seen by Provider: 12:40 Travel History International Travel<30 days: No Contact w/Intl Traveler<30days: No Traveled to known affect area: No History of Present Illness HPI 71-year-old female presents with her daughter for evaluation of altered mental status, frequent falls. The daughter reports progressively worsening confusion over the course of the past 3-4 months. For the past week symptoms have progressed more rapidly. She was seen by her neurologist Dr. Corley 5 days ago and outpatient testing was ordered however not yet completed. Over the course of the past few days the patient fell 2 more times. Because of these progressing symptoms and increasing difficulty taking her home, the daughter brought her here for evaluation today. She has bruising on the forehead, left arm/shoulder, left lateral rib cage secondary to the recent falls. She has chronic pain in her neck, back, left knee for which she is prescribed fentanyl patches, Percocet, tramadol. She also takes Klonopin. She has not had any these medications today. The patient was seen here in December 15 for evaluation of confusion and it was felt to be polypharmacy affect. It was recommended that she discontinue her Percocet and titrate down her Klonopin. 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 Worley. The patient is currently complaining of pain in her head, left shoulder/arm from her fall as well as pain chronically in her left knee. She is not on any blood thinning medications. PFSH Past Medical History Hx Anticoagulant Therapy: No Arthritis: Yes Blood Disorders: No Anxiety: Yes Depression: Yes Cardiovascular Problems: Yes (HTN) High Cholesterol: Yes Chest Pain: No Cerebrovascular Accident: Yes Diabetes: No Diminished Hearing: No Fibromyalgia: Yes Gastrointestinal Disorders: Yes (OCCASIONAL CONSTIPATION) GERD: Yes Genitourinary: No Headaches: No Hepatitis: No Hiatal Hernia: No Hypertension: Yes Immune Disorder: No Implanted Vascular Access Dvce: No Musculoskeletal: Yes (degenerative lumbosacral intravertebral disk disease, SPINAL STENOSIS) Neurologic: No Psychiatric: No Reproductive: Yes (HYSTERECTOMY) Respiratory: No Immunizations Current: Yes Seizures: No Thyroid Disease: No Menopausal: Yes Past Surgical History Abdominal Surgery: Yes (ABDOMINOPLASTY) AICD: No Appendectomy: Yes Body Medical Devices: HARDWARE RIGHT ANKLE, LUMBAR SPINE HARDWARE Gynecologic Surgery: Yes (HYSTERECTOMY) Hysterectomy: Yes Joint Replacement: No Neurologic Surgery: Yes (MYELOGRAM 2012) Oral Surgery: Yes (TONSILLECTOMY) Pacemaker: No Other Surgery: Yes Social History Alcohol Use: No Tobacco Use: No Substance Use: No Allergies-Medications (Allergen,Severity, Reaction): Coded Allergies: Cephalosporins (Verified Allergy, Severe, Anaphylaxis, 01/08/17) Clindamycin (Verified Allergy, Severe, rash and heavy chest, 01/08/17) Contrast Media (Verified Allergy, Severe, SWELLING, 01/08/17) Erythromycin (Verified Allergy, Severe, Anaphylaxis, 01/08/17) Levaquin (Verified Allergy, Severe, breathing problems, 01/08/17) Morphine (Verified Allergy, Severe, Restlessness, 01/08/17) Penicillin (Verified Allergy, Severe, Anaphylaxis, 01/08/17) Sulfa (Verified Allergy, Severe, Anaphylaxis, 01/08/17) Tetracycline (Verified Allergy, Severe, Anaphylaxis, 01/08/17) Vioxx (Verified Allergy, Severe, Anaphylaxis, 01/08/17) Hydrocodone (Verified Allergy, Intermediate, Rash, 01/08/17) Reported Meds & Prescriptions Reported Meds & Active Scripts Active Reported Tramadol (Tramadol HCl) 50 Mg Tab 50 Mg PO Q6H PRN Lorazepam 1 Mg Tab 1 Mg PO Q8H PRN Atenolol 50 Mg Tab 50 Mg PO BID Zolpidem (Zolpidem Tartrate) 10 Mg Tab 10 Mg PO HS PRN Zofran (Ondansetron HCl) 4 Mg Tab 4 Mg PO Q8HR PRN Vitamin D (Cholecalciferol) 2,000 Unit Tab 2,000 DAILY Protonix (Pantoprazole Sodium) 40 Mg Tab 40 Mg PO DAILY PRN Percocet (Oxycodone-Acetaminophen) 10-325 mg Tab 1 Tab PO Q6H PRN Magnesium Oxide 400 Mg Cap 400 Mg DAILY Lyrica (Pregabalin) 150 Mg Cap 150 Mg PO TID Klonopin (Clonazepam) 1 Mg Tab 1 Mg PO BID Flexeril (Cyclobenzaprine HCl) 10 Mg Tab 10 Mg PO TID Fentanyl Patch 72 HR (Fentanyl) 100 Mcg/Hr Patch 100 Mcg T-DERMAL EVERY OTHER DAY Remove old patch when new one placed. Effexor (Venlafaxine HCl) 75 Mg Tab 75 Mg PO TID Catapres (Clonidine) 0.1 Mg Tab 0.1 Mg PO TID PRN Procardia XL (Nifedipine) 60 Mg Tab 60 Mg PO BID Review of Systems Except as stated in HPI: all other systems reviewed are Neg Physical Exam Narrative GENERAL: Well-developed well-nourished female in no acute distress SKIN: Warm and dry. Bruising is noted to the left lateral rib cage, left shoulder/proximal arm, forehead. HEAD: Skin as noted above. Normocephalic. EYES: Pupils equal and round. No scleral icterus. No injection or drainage. ENT: No nasal bleeding or discharge. Mucous membranes pink and moist. NECK: Trachea midline. No JVD. CARDIOVASCULAR: Regular rate and rhythm. No murmur appreciated. RESPIRATORY: No accessory muscle use. Clear to auscultation. Breath sounds equal bilaterally. GASTROINTESTINAL: Abdomen soft, non-tender, nondistended. Hepatic and splenic margins not palpable. MUSCULOSKELETAL: No obvious deformities. Left knee effusion is present which is chronic and managed with intermittent knee aspirations by her orthopedist. Left shoulder has generalized tenderness to palpation with associated bruising. NEUROLOGICAL: Awake and alert. No obvious cranial nerve deficits. Motor grossly within normal limits. Normal speech. The patient is alert to person. 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 Initially she believed that she was in [place]. She is alert to time. nt normal. Data Data Last Documented VS Vital Signs Date Time Temp Pulse Resp B/P Pulse Ox O2 Delivery O2 Flow Rate FiO2 01/08/17 15:12 78 16 170/87 96 Room Air 01/08/17 12:47 97.9 Orders Electrocardiogram (01/08/17 12:49) Ammonia (01/08/17 12:49) Complete Blood Count With Diff (01/08/17 12:49) Comprehensive Metabolic Panel (01/08/17 12:49) Creatine Kinase (Cpk) (01/08/17 12:49) Prothrombin Time / Inr (Pt) (01/08/17 12:49) Act Partial Throm Time (Ptt) (01/08/17 12:49) Urinalysis - C+S If Indicated (01/08/17 12:49) Chest, Single Ap (01/08/17 12:49) Ct Brain W/O Iv Contrast(Rout) (01/08/17 12:49) Blood Glucose (01/08/17 12:49) Ecg Monitoring (01/08/17 12:49) Iv Access Insert/Monitor (01/08/17 12:49) Oximetry (01/08/17 12:49) Sodium Chloride 0.9% Flush (Ns Flush) (01/08/17 13:00) Sodium Chlor 0.9% 1000 Ml Inj (Ns 1000 M (01/08/17 12:49) Ct Cerv Spine W/O Contrast (01/08/17 ) Shoulder, Complete (>2vws) (01/08/17 ) CKMB (01/08/17 13:00) CKMB% (01/08/17 13:00) Urine Culture (01/08/17 14:30) Admit Order (Ed Use Only) (01/08/17 15:55) Place In Observation (01/08/17 ) Vital Signs (Adult) Q4H (01/08/17 15:55) Activity Oob With Assistance (01/08/17 15:55) Coater Associate / Telemetry .CONTINUOUS (01/08/17 15:55) Intake + Output KESHA.QSHIFT (01/08/17 15:55) Diet Npo (01/08/17 Dinner) Sodium Chloride 0.9% Flush (Ns Flush) (01/08/17 16:00) Sodium Chloride 0.9% Flush (Ns Flush) (01/08/17 21:00) Acetaminophen (Tylenol) (01/08/17 16:00) Ondansetron Inj (Zofran Inj) (01/08/17 16:00) Scd Bilateral/Knee High KESHA.BID (01/08/17 15:55) Alfredo Bilateral/Knee High KESHA.QSHIFT (01/08/17 15:55) Naloxone Inj (Narcan Inj) (01/08/17 16:00) Docusate Sodium-Senna (Eneida-Colace) (01/08/17 21:00) Magnesium Hydroxide Liq (Milk Of Magnesi (01/08/17 16:00) Sennosides (Senokot) (01/08/17 16:00) Bisacodyl Supp (Dulcolax Supp) (01/08/17 16:00) Lactulose Liq (Lactulose Liq) (01/08/17 16:00) Labs Laboratory Tests Test 01/08/17 01/08/17 13:00 14:30 White Blood Count 7.7 TH/MM3 Red Blood Count 4.93 MIL/MM3 Hemoglobin 13.2 GM/DL Hematocrit 41.4 % Mean Corpuscular Volume 84.0 FL Mean Corpuscular Hemoglobin 26.8 PG Mean Corpuscular Hemoglobin 31.9 % Concent Red Cell Distribution Width 15.5 % Platelet Count 229 TH/MM3 Mean Platelet Volume 7.8 FL Neutrophils (%) (Auto) 73.6 % Lymphocytes (%) (Auto) 13.2 % Monocytes (%) (Auto) 12.4 % Eosinophils (%) (Auto) 0.5 % Basophils (%) (Auto) 0.3 % Neutrophils # (Auto) 5.7 TH/MM3 Lymphocytes # (Auto) 1.0 TH/MM3 Monocytes # (Auto) 1.0 TH/MM3 Eosinophils # (Auto) 0.0 TH/MM3 Basophils # (Auto) 0.0 TH/MM3 CBC Comment DIFF FINAL Differential Comment Prothrombin Time 11.7 SEC Prothromb Time International 1.1 RATIO Ratio Activated Partial 28.5 SEC Thromboplast Time Sodium Level 140 MEQ/L Potassium Level 3.5 MEQ/L Chloride Level 102 MEQ/L Carbon Dioxide Level 29.3 MEQ/L Anion Gap 9 MEQ/L Blood Urea Nitrogen 12 MG/DL Creatinine 0.69 MG/DL Estimat Glomerular Filtration 84 ML/MIN Rate Random Glucose 86 MG/DL Calcium Level 9.8 MG/DL Total Bilirubin 0.8 MG/DL Aspartate Amino Transf 39 U/L (AST/SGOT) Alanine Aminotransferase 28 U/L (ALT/SGPT) Alkaline Phosphatase 120 U/L Total Creatine Kinase 642 U/L Creatine Kinase MB 15.1 NG/ML Creatine Kinase MB % 2.4 % Total Protein 7.5 GM/DL Albumin 3.7 GM/DL Urine Color YELLOW Urine Turbidity HAZY Urine pH 8.0 Urine Specific [place] 1.011 Urine Protein NEG mg/dL Urine Glucose (UA) NEG mg/dL Urine Ketones 10 mg/dL Urine Occult Blood SMALL Urine Nitrite NEG Urine Bilirubin NEG Urine Urobilinogen LESS THAN 2.0 MG/DL Urine Leukocyte Esterase NEG Urine RBC 3 /hpf Urine WBC 1 /hpf Urine Squamous Epithelial <1 /hpf Cells Urine Amorphous Sediment RARE Urine Bacteria RARE /hpf Microscopic Urinalysis Comment CATH-CULTURE IND MDM Medical Decision Making Medical Screen Exam Complete: Yes Emergency Medical Condition: Yes Medical Record Reviewed: Yes Interpretation(s) CT cervical spine CONCLUSION: 1. No fracture or dislocation. 2. Anterior fusion from C5-C7. 3. Multilevel degenerative changes as detailed above. 4. 1.5 cm left thyroid nodule. 5. Carotid artery atherosclerotic calcifications. CT brain no acute abnormalities Differential Diagnosis Dementia, polypharmacy affect, urinary tract infection, intracranial hemorrhage , encephalitis Narrative Course 71-year-old female with progressively worsening confusion over the course of the past 3-4 months, significantly worse over the past week, the patient had 2 falls over the past few days. She has resultant bruising and pain to her forehead, left shoulder/proximal arm, left lateral rib cage. Plan is for basic lab work, urinalysis, ECG monitoring, CT of the brain/cervical spine been ordered, left shoulder x-ray, chest x-ray been ordered. Imaging reveals no acute abnormality. Lab work reveals a total CK of 642, ALP 120, AST 39, otherwise unremarkable. I did discuss with the daughter who arrived with the patient and she does not feel that the patient is safe at home given her frequent falls and worsening confusion. Therefore the patient will be admitted for observation. Discussed with my attending who agrees with plan of care. Diagnosis Primary Impression: Altered mental status Qualified Code: R41.82 - Altered mental status, unspecified altered mental status type Additional Impression: Frequent falls Admitting Information Admitting Physician Requests: Observation Lucian Loja Jan 08, 2017 12:57
[2017-01-08] MEDS ORDERED: SODIUM CHLORIDE 0.9% FLUSH 5 ML FLUSH IV FLUSH PRN (13:00)
[2017-01-08 13:38] LABS: AUTOMATED NEUTROPHIL # 5.7 TH/MM3 (1.8-7.7); BASOPHIL % 0.3 % (0.0-2.0); EOSINOPHIL % 0.5 % (0.0-4.0); HEMATOCRIT 41.4 % (35.0-46.0); HEMO FLAGS DIFF FINAL; LYMPH % 13.2 % (9.0-44.0); MEAN CORPUSCULAR HEMOGLOBIN 26.8 PG (27.0-34.0); MEAN CORPUSCULAR HGB CONC 31.9 % (32.0-36.0); MONO % 12.4 % (0.0-8.0); NEUT % 73.6 % (16.0-70.0); PLATELET COUNT 229 TH/MM3 (150-450); RED BLOOD COUNT 4.93 MIL/MM3 (4.00-5.30); RED CELL DISTRIBUTION WIDTH 15.5 % (11.6-17.2); WHITE BLOOD COUNT 7.7 TH/MM3 (4.0-11.0)
[2017-01-08 13:46] LABS: APTT (PATIENT) 28.5 SEC (24.3-30.1); INTERNATIONAL NORMALIZED RATIO 1.1 RATIO; PROTHROMBIN TIME - PATIENT 11.7 SEC (9.8-11.6)
[2017-01-08 13:56] LABS: ALT (GPT) 28 U/L (10-53); ANION GAP 9 MEQ/L (5-15); AST (GOT) 39 U/L (15-37); BICARBONATE 29.3 MEQ/L (21.0-32.0); BLOOD UREA NITROGEN 12 MG/DL (7-18); CHLORIDE 102 MEQ/L (98-107); GLOMERULAR FILTRATION RATE 84 ML/MIN (>89); POTASSIUM 3.5 MEQ/L (3.5-5.1); SODIUM (NA) 140 MEQ/L (136-145)
[2017-01-08 13:59] LABS: ALKALINE PHOSPHATASE 120 U/L (45-117); CREATINE KINASE 642 U/L (26-192); TOTAL BILIRUBIN ADULT 0.8 MG/DL (0.2-1.0)
[2017-01-08 14:16] LABS: CKMB 15.1 NG/ML (0.5-3.6)
--- NOTE | 2017-01-08 14:23 | RADRPT ---
EXAM DATE/TIME: 01/08/2017 14:06 [facility] COMPARISON: CT BRAIN W/O CONTRAST, December 15, 2016, 8:28. INDICATIONS : Multiple falls with increasing lethargy. RADIATION DOSE: 36.45 CTDIvol (mGy) MEDICAL HISTORY : Hypertension. SURGICAL HISTORY : Hysterectomy. Fusion, cervical. ENCOUNTER: Initial ACUITY: 1 week PAIN SCALE: 0/10 LOCATION: cranial TECHNIQUE: Multiple contiguous axial images were obtained of the head. Using automated exposure control and adj ustment of the mA and/or kV according to patient size, radiation dose was kept as low as reasonably a chievable to obtain optimal diagnostic quality images. DICOM format image data is available electro nically for review and comparison. FINDINGS: CEREBRUM: The ventricles are normal for age. No evidence of midline shift, mass lesion, hemorrhage or acute in farction. No extra-axial fluid collections are seen. POSTERIOR FOSSA: The cerebellum and brainstem are intact. The 4th ventricle is midline. The cerebellopontine angle i s unremarkable. EXTRACRANIAL: The visualized portion of the orbits is intact. SKULL: The calvaria is intact. No evidence of skull fracture. CONCLUSION: Normal examination. Juan A Jordan Jr., MD on January 08, 2017 at 14:20 Board Certified Radiologist. This report was verified electronically.
--- NOTE | 2017-01-08 14:38 | RADRPT ---
EXAM DATE/TIME: 01/08/2017 14:06 [facility] COMPARISON: CT CERVICAL SPINE W/O CONTRAST, December 15, 2016, 8:28. INDICATIONS : Multiple falls with increasing lethargy. RADIATION DOSE: 18.13 CTDIvol (mGy) MEDICAL HISTORY : Hypertension. SURGICAL HISTORY : Fusion, cervical. Hysterectomy. ENCOUNTER: Initial ACUITY: 1 week PAIN SCALE: 0/10 LOCATION: Bilateral neck TECHNIQUE: Volumetric scanning of the cervical spine was performed. Multiplanar reconstructions in the sagittal, coronal and oblique axial planes were performed. Using automated exposure control and adjustment o f the mA and/or kV according to patient size, radiation dose was kept as low as reasonably achievable to obtain optimal diagnostic quality images. DICOM format image data is available electronically f or review and comparison. FINDINGS: VERTEBRAE: There is an anterior fusion plate with intervening bone graft material involving C5-C6 and C6-C7. Krista tebral body heights are maintained. ALIGNMENT: There is a mild anterolisthesis of C6 on C7 which is stable. Straightening of the rest of the cervica l spine which is stable. A 1.5 cm nodule is seen involving the left thyroid. Calcified plaque involving the carotid arteries b ilaterally. C2-C3: The bony spinal canal is normal in size. No evidence of disc bulge or herniation. Bony uncovertebral hypertrophy on the right generates mild narrowing of the right neural foramen. The left remains yo nt. C3-C4: The bony spinal canal is normal in size. No evidence of disc bulge or herniation. Bony uncovertebral hypertrophy particularly on the left generates moderate neural foraminal narrowing. The right remain s patent. There is narrowing of the left lateral recess. C4-C5: There is a mild broad-based disc bulge without central canal stenosis. Prominent bony uncovertebral h ypertrophy bilaterally generat bilateral lateral recess and significant bilateral neural foraminal na rrowing. C5-C6: This level is fused anteriorly. Central canal is grossly patent. Prominent bony uncovertebral hypertr ophy generates bilateral neural foraminal narrowing. C6-C7: This level is fused anteriorly. Central canal is grossly patent. Prominent bony uncovertebral hypertr ophy generates bilateral neural foraminal narrowing. C7-T1: The bony spinal canal is normal in size. No evidence of disc bulge or herniation. The neural forami na are bilaterally patent. CONCLUSION: 1. No fracture or dislocation. 2. Anterior fusion from C5-C7. 3. Multilevel degenerative changes as detailed above. 4. 1.5 cm left thyroid nodule. 5. Carotid artery atherosclerotic calcifications. Juan A Jordan Jr., MD on January 08, 2017 at 14:30 Board Certified Radiologist. This report was verified electronically.
--- NOTE | 2017-01-08 15:18 | RADRPT ---
EXAM DATE/TIME: 01/08/2017 14:35 [facility] COMPARISON: CHEST SINGLE AP, December 15, 2016, 8:36. INDICATIONS : Short of breath. MEDICAL HISTORY : Stroke. Cardiovascular disease. Hypertension. SURGICAL HISTORY : Fusion, cervical ENCOUNTER: Initial ACUITY: 1 day PAIN SCORE: Non-responsive. LOCATION: Bilateral chest FINDINGS: A single view of the chest demonstrates the lungs to be symmetrically but under aerated without acute infiltrate or effusion. The cardiomediastinal contours are unremarkable. Osseous structures are in tact with anterior fixation of lower cervical spine. Degenerative spurring of the dorsal spine. CONCLUSION: Hypoinflation with no acute cardiopulmonary process. Bob Albright MD on January 08, 2017 at 15:12 Board Certified Radiologist. This report was verified electronically.
[2017-01-08 15:19] LABS: BACTERIA, URINE RARE /hpf; BLOOD, URINE SMALL (NEG); COMMENT (UR) CATH-CULTURE IND; CULTURE IF INDICATED CATH CULTURE IND; GLUCOSE,URINE NEG (NEG); KETONE, URINE 10 mg/dL (NEG); NITRITE,URINE NEG (NEG); SQUAMOUS EPITHELIAL CELL URINE <1 /hpf (0-5); URINE COLOR YELLOW (YELLW/STRAW)
--- NOTE | 2017-01-08 15:31 | RADRPT ---
EXAM DATE/TIME: 01/08/2017 14:23 [facility] COMPARISON: No previous studies available for comparison. INDICATIONS : Left shoulder pain from fall today. MEDICAL HISTORY : Stroke. Cardiovascular disease. Hypertension. SURGICAL HISTORY : Fusion, cervical. ENCOUNTER: Initial ACUITY: 1 day PAIN SCORE: Non-responsive. LOCATION: Left Shoulder FINDINGS: Multiple view examination of the left shoulder demonstrates no evidence of fracture or dislocation. The glenohumeral and acromioclavicular joints are maintained. Degenerative changes of the a.c. joint without subacromial space narrowing. There is normal range of motion between internal and external r otation. Bony mineralization is normal. CONCLUSION: Mild degenerative changes of the a.c. joint. Otherwise, unremarkable exam.. Juan A Jordan Jr., MD on January 08, 2017 at 15:28 Board Certified Radiologist. This report was verified electronically.
[2017-01-08] MEDS ORDERED: SENNOSIDES 8.6 MG TAB PO PRN (16:00)
[2017-01-08] MEDS ORDERED: BISACODYL 10 MG SUPP RECTAL PRN (16:00)
[2017-01-08] MEDS ORDERED: ONDANSETRON HCL 4 MG/2 ML VIAL IVP PRN (16:00)
[2017-01-08] MEDS ORDERED: NALOXONE HCL 0.4 MG/ML AMP IV PRN (16:00)
[2017-01-08] MEDS ORDERED: MAGNESIUM HYDROXIDE SUSP 30 ML CUP PO PRN (16:00)
[2017-01-08] MEDS ORDERED: LACTULOSE SYRUP 20 GM/30 ML CUP PO PRN (16:00)
[2017-01-08] MEDS ORDERED: SODIUM CHLORIDE 0.9% FLUSH 10 ML FLUSH IV FLUSH PRN (16:00)
[2017-01-08] MEDS ORDERED: NON-FORMULARY DRUG (Ondansetron (Zofran) 4 MG) PO PRN (16:30)
[2017-01-08] MEDS ORDERED: PANTOPRAZOLE SOD 40 MG DELAYED RELEASE TAB PO PRN (16:30)
--- NOTE | 2017-01-08 16:46 | HHI.HP ---
[facility] Service [facility] Primary Care Physician [address] [place] Admission Diagnosis altered mental status, frequent falls Diagnoses: Chief Complaint: Altered mental status and frequent falls Travel History International Travel<30 Days: No Contact w/Intl Traveler <30 Da: No Traveled to Known Affected Are: No History of Present Illness 71-year-old female past medical history of CVA, osteoarthritis, chronic pain syndrome including fibromyalgia, and history of CVA who presented with altered mental status and multiple falls. Patient is a very poor historian history interview taken from patient's nurse and from medical records. Patient stated that she's here due to her left knee pain and swelling. She stated that this occurred today. She cannot give me any details in regards to this. Patient able to give me her first and last name. She was also able to tell me that she is at the hospital but stated that she is at [facility]. Patient cannot tell me the date and she was able to tell me who the president was. Patient seems to be intermittently confused. During the interview she was saying that she lives with her mother and that her mother does not get along because of the person she is dating. Patient actually lives with her daughter and her grandkids. Per patient's nurse is at the bedside she stated that patient's mental status improved drastically. Patient has no focal neurological deficits. Per patient's nurse she stated that her daughter stated that patient would have missing pills and will need to get refills on her medication earlier than prescribed. The patient manages her own medication. Per ED provider daughter stated that patient has been having altered mental status over the past few months that has worsened. On multiple control substance and narcotics and previously was told that her altered mental status was due to polypharmacy. Patient was seen Dr. Corley in regards to this. Review of Systems Constitutional: DENIES: Diaphoretic episodes, Fatigue, Fever, Weight gain, Weight loss, Chills, Dizziness, Change in appetite, Night Sweats Endocrine: DENIES: Abnorml menstrual pattern, Heat/cold intolerance, Polydipsia , Polyuria, Polyphagia Eyes: DENIES: Blurred vision, Diplopia, Eye inflammation, Eye pain, Vision loss , Photosensitivity, Double Vision Respiratory: DENIES: Apneas, Cough, Snoring, Wheezing, Hemoptysis, Sputum production, Shortness of breath Cardiovascular: DENIES: Chest pain, Palpitations, Syncope, Dyspnea on Exertion , PND, Lower Extremity Edema, Orthopnea, Claudication Gastrointestinal: DENIES: Abdominal pain, Black stools, Bloody stools, Constipation, Diarrhea, Nausea, Vomiting, Difficulty Swallowing, Anorexia Genitourinary: DENIES: Abnormal vaginal bleeding, Dysmenorrhea, Dyspareunia, Sexual dysfunction, Urinary frequency, Urinary incontinence, Urgency, Hematuria , Dysuria, Nocturia, Vaginal discharge Musculoskeletal: COMPLAINS OF: Joint pain, Joint Swelling, DENIES: Muscle aches, Stiffness, Back pain, Neck pain Integumentary: DENIES: Abnormal pigmentation, Pruritus, Rash, Nail changes, Breast masses, Breast skin changes, Nipple discharge Hematologic/lymphatic: DENIES: Bruising, Lymphadenopathy Immunologic/allergic: DENIES: Eczema, Urticaria Neurologic: DENIES: Abnormal gait, Headache, Localized weakness, Paresthesias, Seizures, Speech Problems, Tremor, Poor Balance Psychiatric: COMPLAINS OF: Confusion, DENIES: Anxiety, Mood changes, Depression, Hallucinations, Agitation, Suicidal Ideation, Homicidal Ideation, Delusions Past Family Social History Past Medical History Chronic pain syndrome Fibromyalgia Osteoarthritis Anxiety/depression Insomnia Hypertension GERD Lumbosacral sacral spinal stenosis History of CVA hx polypharmacy hx of narcotic dependence Past Surgical History Hysterectomy Abdominoplasty Right ankle hardware placement Spinal hardware placement Myelogram in 2013 Tonsillectomy Reported Medications Tramadol (Tramadol HCl) 50 Mg Tab 50 Mg PO Q6H PRN Lorazepam 1 Mg Tab 1 Mg PO Q8H PRN Atenolol 50 Mg Tab 50 Mg PO BID Zolpidem (Zolpidem Tartrate) 10 Mg Tab 10 Mg PO HS PRN Zofran (Ondansetron HCl) 4 Mg Tab 4 Mg PO Q8HR PRN Vitamin D (Cholecalciferol) 2,000 Unit Tab 2,000 DAILY Protonix (Pantoprazole Sodium) 40 Mg Tab 40 Mg PO DAILY PRN Percocet (Oxycodone-Acetaminophen) 10-325 mg Tab 1 Tab PO Q6H PRN Magnesium Oxide 400 Mg Cap 400 Mg DAILY Lyrica (Pregabalin) 150 Mg Cap 150 Mg PO TID Klonopin (Clonazepam) 1 Mg Tab 1 Mg PO BID Flexeril (Cyclobenzaprine HCl) 10 Mg Tab 10 Mg PO TID Fentanyl Patch 72 HR (Fentanyl) 100 Mcg/Hr Patch 100 Mcg T-DERMAL EVERY OTHER DAY Remove old patch when new one placed. Effexor (Venlafaxine HCl) 75 Mg Tab 75 Mg PO TID Catapres (Clonidine) 0.1 Mg Tab 0.1 Mg PO TID PRN Procardia XL (Nifedipine) 60 Mg Tab 60 Mg PO BID Allergies: Coded Allergies: Cephalosporins (Verified Allergy, Severe, Anaphylaxis, 01/08/17) Clindamycin (Verified Allergy, Severe, rash and heavy chest, 01/08/17) Contrast Media (Verified Allergy, Severe, SWELLING, 01/08/17) Erythromycin (Verified Allergy, Severe, Anaphylaxis, 01/08/17) Levaquin (Verified Allergy, Severe, breathing problems, 01/08/17) Morphine (Verified Allergy, Severe, Restlessness, 01/08/17) Penicillin (Verified Allergy, Severe, Anaphylaxis, 01/08/17) Sulfa (Verified Allergy, Severe, Anaphylaxis, 01/08/17) Tetracycline (Verified Allergy, Severe, Anaphylaxis, 01/08/17) Vioxx (Verified Allergy, Severe, Anaphylaxis, 01/08/17) Hydrocodone (Verified Allergy, Intermediate, Rash, 01/08/17) Active Ordered Medications Current Medications IV Flush 2 ml 2 ml UNSCH PRN IV FLUSH FLUSH AFTER USING IV ACCESS; Start at 13:00; Stop 01/08/17 at 16:01; Status DC Sodium Chloride (NS 1000 ml Inj) 1,000 ml @ 1,000 mls/hr Q1H IV Last administered on 01/08/17t 13:59; Start 01/08/17 at 12:49; Stop 01/08/17 at 13:48 ; Status DC Sodium Chloride (NS Flush) 2 ml UNSCH PRN IV FLUSH FLUSH AFTER USING IV ACCESS ; Start 01/08/17 at 16:00 Sodium Chloride (NS Flush) 2 ml BID IV FLUSH ; Start 01/08/17 at 21:00 Acetaminophen (Tylenol) 650 mg Q4H PRN PO TEMP > 100.4; Start 01/08/17 at 16:00 Ondansetron HCl (Zofran Inj) 4 mg Q6H PRN IVP NAUSEA OR VOMITING; Start at 16:00 Naloxone HCl (Narcan Inj) 0.4 mg UNSCH PRN IV SEE LABEL COMMENTS; Start at 16:00 Senna/Docusate Sodium (Eneida-Colace) 1 tab BID PO ; Start 01/08/17 at 21:00 Magnesium Hydroxide (Milk Of Magnesia Liq) 30 ml Q12H PRN PO MILD - MODERATE CONSTIPATION; Start 01/08/17 at 16:00 Sennosides (Senokot) 17.2 mg Q12H PRN PO MODERATE - SEVERE CONSTIPATION; Start 01/08/17 at 16:00 Bisacodyl (Dulcolax Supp) 10 mg DAILY PRN RECTAL SEVERE CONSITIPATION; Start at 16:00 Lactulose (Lactulose Liq) 30 ml DAILY PRN PO SEVERE CONSITIPATION; Start at 16:00 Family History Noncontributory and unable to obtain from patient due to altered mental status. Social History Patient was at home with her daughter and grand kids. Denies any alcohol, tobacco, illicit drug use. Physical Exam Vital Signs Vital Signs Date Time Temp Pulse Resp B/P Pulse Ox O2 Delivery O2 Flow Rate FiO2 01/08/17 15:12 78 16 170/87 96 Room Air 01/08/17 14:45 78 16 170/87 96 Room Air 01/08/17 12:47 88 16 99 Room Air 01/08/17 12:47 97.9 78 15 150/85 97 Room Air 01/08/17 11:18 98.2 94 17 159/80 98 Physical Exam GENERAL: This is a well-nourished, well-developed patient, in no apparent distress. SKIN: Patient has multiple bruises all over her body. HEAD: Atraumatic. Normocephalic. No temporal or scalp tenderness. EYES: Pupils equal round and reactive. Extraocular motions intact. No scleral icterus. No injection or drainage. ENT: Nose without bleeding, purulent drainage or septal hematoma. Throat without erythema, tonsillar hypertrophy or exudate. Uvula midline. Airway patent. NECK: Trachea midline. No JVD or lymphadenopathy. Supple, nontender, no meningeal signs. CARDIOVASCULAR: Regular rate and rhythm without murmurs, gallops, or rubs. RESPIRATORY: Clear to auscultation. Breath sounds equal bilaterally. No wheezes , rales, or rhonchi. GASTROINTESTINAL: Abdomen soft, non-tender, nondistended. No hepato-splenomegaly , or palpable masses. No guarding. MUSCULOSKELETAL: Left knee swelling. Decreased range of motion secondary to pain. No warmth or erythema noted. NEUROLOGICAL: Awake and alert she is AAO 2. She is able to tell me that her name and that she is at the hospital. She is intimately confused during the interview.. Cranial nerves II through XII intact. Motor and sensory grossly within normal limits. Five out of 5 muscle strength in all muscle groups. Laboratory Laboratory Tests Test 01/08/17 01/08/17 13:00 14:30 White Blood Count 7.7 Red Blood Count 4.93 Hemoglobin 13.2 Hematocrit 41.4 Mean Corpuscular Volume 84.0 Mean Corpuscular Hemoglobin 26.8 Mean Corpuscular Hemoglobin 31.9 Concent Red Cell Distribution Width 15.5 Platelet Count 229 Mean Platelet Volume 7.8 Neutrophils (%) (Auto) 73.6 Lymphocytes (%) (Auto) 13.2 Monocytes (%) (Auto) 12.4 Eosinophils (%) (Auto) 0.5 Basophils (%) (Auto) 0.3 Neutrophils # (Auto) 5.7 Lymphocytes # (Auto) 1.0 Monocytes # (Auto) 1.0 Eosinophils # (Auto) 0.0 Basophils # (Auto) 0.0 CBC Comment DIFF FINAL Differential Comment Prothrombin Time 11.7 Prothromb Time International 1.1 Ratio Activated Partial 28.5 Thromboplast Time Sodium Level 140 Potassium Level 3.5 Chloride Level 102 Carbon Dioxide Level 29.3 Anion Gap 9 Blood Urea Nitrogen 12 Creatinine 0.69 Estimat Glomerular Filtration 84 Rate Random Glucose 86 Calcium Level 9.8 Total Bilirubin 0.8 Aspartate Amino Transf 39 (AST/SGOT) Alanine Aminotransferase 28 (ALT/SGPT) Alkaline Phosphatase 120 Total Creatine Kinase 642 Creatine Kinase MB 15.1 Creatine Kinase MB % 2.4 Total Protein 7.5 Albumin 3.7 Urine Color YELLOW Urine Turbidity HAZY Urine pH 8.0 Urine Specific [place] 1.011 Urine Protein NEG Urine Glucose (UA) NEG Urine Ketones 10 Urine Occult Blood SMALL Urine Nitrite NEG Urine Bilirubin NEG Urine Urobilinogen LESS THAN 2.0 Urine Leukocyte Esterase NEG Urine RBC 3 Urine WBC 1 Urine Squamous Epithelial <1 Cells Urine Amorphous Sediment RARE Urine Bacteria RARE Microscopic Urinalysis Comment CATH-CULTURE IND Date/Time Procedure Status Source Growth 01/08/17 14:30 Urine Culture Received Urine Catheterized Urine Pending Result Diagram: 01/08/17 1300 01/08/17 1300 Imaging Last Impressions Head CT 01/08/17 1249 Signed Impressions: Service Date/Time: Sunday, January 08, 2017 14:06 - CONCLUSION: Normal examination. Juan A Jordan Jr., MD Cervical Spine CT 01/08/17 0000 Signed Impressions: Service Date/Time: Sunday, January 08, 2017 14:06 - CONCLUSION: 1. No fracture or dislocation. 2. Anterior fusion from C5-C7. 3. Multilevel degenerative changes as detailed above. 4. 1.5 cm left thyroid nodule. 5. Carotid artery atherosclerotic calcifications. Juan A Jordan Jr., MD Assessment and Plan Assessment and Plan 71-year-old female past medical history hypertension, CVA, chronic pain syndrome , narcotic dependence who presented with altered mental status Metabolic encephalopathy -Most likely secondary to poly-pharmacy with multiple sedating medication including nacrotic, insomnia medication, benzos, and muscle relaxants. -patient was seeing Dr. Corley in regards to this. -Last review and relatively stable. CT scan of the head is negative. No focal neurological deficits. -Will need to hold all sedating medication and restart once patient becomes more alert. Will consult patient's neurologist Dr. Corley since patient is being seen from this issue. Narcotics dependence -Due to confusion will need to hold the context and restart gradually wants patient mental status improves. Left knee swelling/pain -Most likely secondary to fall. will get an x-ray. There are no signs of infection. Multiple falls -Secondary to polypharmacy and multiple sedating medication. -Recommend weaning off of some sedating medications. -Patient will need close follow-up with her PCP. Will also consult case management to see if they can help administrating medication for patient. Chronic pain syndrome/fibromyalgia -See treatment as above. Hypertension/GERD/history of CVA/anxiety/depression -Resume home medication. DVT prophylaxis -SCDs/teds. Discussed Condition With patient and her nurse at bedside. Brenda Mckeon MD Jan 08, 2017 16:46
--- NOTE | 2017-01-08 16:58 | EKG ---
Date Performed: 01/08/2017 Time Performed: 14:49:13 PTAGE: 71 years EKG: Sinus rhythm NORMAL ECG PREVIOUS TRACING : 09/12/2016 12.53 Compared to prior tracing no significant change DOCTOR: [place] Head Interpretating Date/Time 01/08/2017 16:56:52
--- NOTE | 2017-01-08 17:31 | RADRPT ---
EXAM DATE/TIME: 01/08/2017 17:06 [place] COMPARISON: No previous studies available for comparison. INDICATIONS : Left knee pain and swelling after falling several times. MEDICAL HISTORY : Hypertension. Arthritis. Stroke. SURGICAL HISTORY : Appendectomy. Hysterectomy. ENCOUNTER: Initial ACUITY: 1 day PAIN SCORE: 10/10 LOCATION: Left entire knee. FINDINGS: There is a moderate to large suprapatellar knee joint effusion which appears to demonstrate some high density suggesting calcifications. Moderate joint space narrowing is noted involving the patellofem oral and femorotibial joints. There is no acute fracture or dislocation. CONCLUSION: 1. Moderate to large suprapatellar knee joint effusion with scattered calcifications. 2. Moderate joint space narrowing involving the patellofemoral and femorotibial joints. 3. No acute fracture or dislocation. Gonzalo Phillips MD on January 08, 2017 at 17:23 Board Certified Radiologist. This report was verified electronically.
[2017-01-08] MEDS ORDERED: NON-FORMULARY DRUG (Venlafaxine (Effexor) 75 MG) PO SCH (18:00)
[2017-01-08] MEDS ORDERED: ONDANSETRON ODT 4 MG TAB PO PRN (18:30)
[2017-01-08] MEDS: PREGABALIN 75 MG CAP PO SCH (18:33)
--- NOTE | 2017-01-08 19:29 | MB ---
cc: GUY ALBERTO M.D. DATE OF CONSULTATION: 01/08/2017 DATE OF : [birth year], 71 year-old REASON FOR CONSULTATION: Change in mental status. History of stroke. Falls. HISTORY OF PRESENT ILLNESS: The patient is a 71-year-old woman who apparently seen by partner, Dr. Corley in the office. She has a known history of stroke, osteoarthritis, chronic pain syndrome with fibromyalgia. She comes in with multiple falls. She states that she hurt her knee and because of that she is falling. She complains of her left knee hurting, actually she just came back from x-ray on the knee. She really cannot tell me if she feels dizzy. She states she does not think so. She does not feel lightheaded. She still is somewhat confused. She knows she is at [facility]. She confused her birthday but did get it right as well as her age, but did not know the month, did know the year and figured out the day of the week. PAST MEDICAL HISTORY: 1. Chronic pain syndrome. 2. Fibromyalgia. 3. Osteoarthritis. 4. Anxiety and depression 5. Insomnia 6. Hypertension. 7. Reflux. 8. Lumbosacral spine stenosis. 9. Stroke. 10. Polypharmacy. 11. Narcotic dependence. PAST SURGICAL HISTORY: 1. Hysterectomy. 2. Abdominoplasty. 3. Right ankle hardware placement. 4. Spinal hardware placement. 5. Myelogram in 2012. 6. Tonsillectomy. 7. She also tells me she has a history of seizures but she cannot tell me if she is taking any medication. HOME MEDICATIONS: 1. Currently on p.r.n. Tramadol. 2. Lorazepam. 3. Atenolol. 4. Zolpidem. 5. Zofran 6. Vitamin D 7. Protonix 8. Percocet 9. Magnesium oxide. 10. Lyrica. 11. Klonopin. 12. Flexeril. 13. Fentanyl patch 100 micrograms. 14. Effexor 15. Catapres. 16. Procardia. ALLERGIES: Please refer to EMR. PHYSICAL EXAMINATION: VITAL SIGNS: Temperature 97.9, pulse 78, respiratory rate 16, blood pressure 170/87, sating at 96%. NECK: Supple. No appreciable bruits. HEART: Regular. NEUROLOGIC: She is awake and alert to herself, date of , age, not the month, only the date, day of the week and the year. She knows she is in the hospital. Speech otherwise is fluent. Her mouth looks dry. Pupils reactive. Face symmetrical. Tongue midline. She has an abrasion, bruise over her left forehead. Motor: No lateralizing weakness. She does have pain over her left knee. Toes, withdraws. Cerebellar is normal. Gait is withheld. Sensory unremarkable. LABORATORY DATA: Reviewed. Cultures pending on her UA, small bleed, 10 ketones, 1 white cell. Chest x-ray: Hypoinflation, no acute disease. Head CT: Normal exam. Spine CT: No fracture. Anterior fusion C5-C6, C6-C7. Knee x-ray still pending. Shoulder x-ray, mild degenerative changes at the AC joint, otherwise unremarkable. IMPRESSION/PLAN The patient is a 71 year-old woman with known history of chronic pain, history of stroke, narcotic dependence, change in mental status, encephalopathy may be very well multifactorial she is on polypharmacy. I would at this point get an EEG. I would not stop her Lyrica as she has a possible seizure, so this is a seizure preventative as well as for neuropathy. Would limit her narcotics. I would not put her on any Tramadol as there is a risk for seizures from that drug. Follow up her knee x-ray. Continue antihypertensives. Further recommendations will be made accordingly. Will go ahead and get an EEG. MD JAYDEN Montenegro/DAMI /5:40 PM /7:21 PM
[2017-01-08] MEDS: SODIUM CHLORIDE 0.9% FLUSH 10 ML FLUSH IV FLUSH SCH (21:00)
[2017-01-08] MEDS: DOCUSATE SODIUM 50 MG/SENNA 8.6 MG TAB PO SCH (21:31)
[2017-01-08] MEDS: ATENOLOL 50 MG TAB PO SCH (21:31)
[2017-01-08] MEDS: NIFEdipine 60 MG SUSTAINED RELEASE TAB PO SCH (21:32)
[2017-01-09] VITALS (7 sets, daily range): BP systolic 129–150; BP diastolic 63–74; PULSE 67–87; RESP 16–18; TEMP 97.8–98; O2SAT 93–98
[2017-01-09] MEDS: ATENOLOL 50 MG TAB PO SCH ×2 (10:32→22:45)
[2017-01-09] MEDS: NIFEdipine 60 MG SUSTAINED RELEASE TAB PO SCH ×2 (10:32→22:45)
[2017-01-09] MEDS: VENLAFAXINE HCL XR 75 MG CAP PO SCH (10:32)
[2017-01-09] MEDS: DOCUSATE SODIUM 50 MG/SENNA 8.6 MG TAB PO SCH ×2 (10:33→21:00)
[2017-01-09] MEDS: PREGABALIN 75 MG CAP PO SCH ×3 (10:33→18:15)
[2017-01-09] MEDS: SODIUM CHLORIDE 0.9% FLUSH 10 ML FLUSH IV FLUSH SCH ×2 (10:33→22:46)
[2017-01-09] MEDS: ACETAMINOPHEN 325 MG TAB PO PRN (11:47)
--- NOTE | 2017-01-09 12:03 | HHI.PR ---
Subjective Remarks Follow up for Falls, delirium. Patient is much more coherent. However, she complains of significant pain, swelling around her left knee. Patient denies any chest pain, shortness of breath, fever or chills. Objective Vitals Vital Signs Date Time Temp Pulse Resp B/P Pulse Ox O2 Delivery O2 Flow Rate FiO2 01/09/17 11:46 17 01/09/17 11:35 97.8 84 18 150/74 98 01/09/17 07:48 97.9 85 16 134/63 96 01/09/17 05:04 98.0 74 18 144/70 98 01/09/17 04:32 87 01/09/17 00:05 85 01/08/17 23:49 98.0 83 18 144/70 97 01/08/17 20:51 98.1 86 18 141/69 97 01/08/17 20:34 90 01/08/17 18:10 98.4 86 20 134/67 96 01/08/17 15:12 78 16 170/87 96 Room Air 01/08/17 14:45 78 16 170/87 96 Room Air 01/08/17 12:47 88 16 99 Room Air 01/08/17 12:47 97.9 78 15 150/85 97 Room Air I/O 01/08/17 01/08/17 01/08/17 01/09/17 01/09/17 01/09/17 07:00 15:00 23:00 07:00 15:00 23:00 # Voids 2 # Bowel Movements 1 Result Diagram: 01/08/17 1300 01/08/17 1300 Imaging Last Impressions Head CT 01/08/17 1249 Signed Impressions: Service Date/Time: Sunday, January 08, 2017 14:06 - CONCLUSION: Normal examination. Juan A Jordan Jr., MD Chest X-Ray 01/08/17 1249 Signed Impressions: Service Date/Time: Sunday, January 08, 2017 14:35 - CONCLUSION: Hypoinflation with no acute cardiopulmonary process. Bob Albright MD Shoulder X-Ray 01/08/17 0000 Signed Impressions: Service Date/Time: Sunday, January 08, 2017 14:23 - CONCLUSION: Mild degenerative changes of the a.c. joint. Otherwise, unremarkable exam.. Juan A Jordan Jr., MD Knee X-Ray 01/08/17 0000 Signed Impressions: Service Date/Time: Sunday, January 08, 2017 17:06 - CONCLUSION: 1. Moderate to large suprapatellar knee joint effusion with scattered calcifications. 2. Moderate joint space narrowing involving the patellofemoral and femorotibial joints. 3. No acute fracture or dislocation. Gonzalo Phillips MD Cervical Spine CT 01/08/17 0000 Signed Impressions: Service Date/Time: Sunday, January 08, 2017 14:06 - CONCLUSION: 1. No fracture or dislocation. 2. Anterior fusion from C5-C7. 3. Multilevel degenerative changes as detailed above. 4. 1.5 cm left thyroid nodule. 5. Carotid artery atherosclerotic calcifications. Juan A Jordan Jr., MD Objective Remarks GENERAL: Alert, oriented to person, place, month and year. Knows the name of the president. NAD. SKIN: Warm and dry. HEAD: Normocephalic. EYES: No scleral icterus. No injection or drainage. NECK: Supple, trachea midline. No JVD or lymphadenopathy. CARDIOVASCULAR: Regular rate and rhythm without murmurs, gallops, or rubs. RESPIRATORY: Breath sounds equal bilaterally. No accessory muscle use. GASTROINTESTINAL: Abdomen soft, non-tender, nondistended. MUSCULOSKELETAL: No cyanosis. Left knee feels warmer than the right knee. Significant pain on palpation on the left knee. There is swelling around the knee as well. Left knee pain on active and passive range of motion. BACK: Nontender without obvious deformity. No CVA tenderness. Procedures None A/P Problem List: (1) Left knee pain ICD Code: M25.562 Status: Acute (2) Delirium ICD Code: R41.0 Status: Acute (3) Frequent falls ICD Code: R29.6 Status: Acute (4) Hypertension ICD Code: I10 Status: Acute Assessment and Plan 71-year-old female past medical history hypertension, CVA, chronic pain syndrome , narcotic dependence who presented with altered mental status - Delirium - appears to be resolved. Patient is coherent, oriented to name, place, month and year, knows the name of the [email or web address] President. - Possibly secondary to poly-pharmacy with multiple sedating medication including nacrotic, insomnia medication, benzos, and muscle relaxants. - patient was seeing Dr. Corley in regards to this. - Last review and relatively stable. CT scan of the head is negative. No focal neurological deficits. - Neurology is following. EEG Pending. Neurology recommended to continue Pregabalin. - Left knee swelling/pain - Patient denies any fall as the cause of her knee pain. - Knee X-Ray showed prepatellar fluid. Will get an MRI of the Left knee. - Will consult Orthopedic surgery for recommendations. She sees Dr. Francisco Javier Williamson in the outpatient setting. - Will start Percocet 5/325mg Q6hrs PRN. - Multiple falls - Secondary to polypharmacy and multiple sedating medication. - Will continue to reduce non-essential medications. - PT consulted. - Hypertension - GERD - Continue Atenolol 50mg BID, Nifedipine 60mg BID - continue Protonix Full code. SCDs. Shraddha Hurt DO Jan 09, 2017 12:03 pm
[2017-01-09] MEDS: oxyCODONE/ACETAMINOPHEN 5 MG/325 MG TAB PO PRN (15:44)
[2017-01-10 00:20] VITALS: BP 168/89; PULSE 68; RESP 18; TEMP 97.8; O2SAT 98
[2017-01-10] MEDS: cloNIDine HCL 0.1 MG TAB PO PRN (00:49)
[2017-01-10 05:04] VITALS: BP 136/71; PULSE 78; RESP 18; TEMP 98.7; O2SAT 97
--- NOTE | 2017-01-10 07:47 | MG ---
cc: MANAS CASTILLO MD Lab No: [id number] Date: 01/09/17 Age: 71 Sex: F Race: DATE OF 1945 A 71-year-old with history of fall, stroke, confusion. 6 theta hertz activity, 20-40 microvolts. There is driving photic stimulation. A synchronous bilateral beta and alpha frequency is occurring and occasional slow eye movements. Tiny frontal sharp transient EPOCH 68. ____ bilateral frontal central sharp transients, tiny EPOCH 74. Tiny little frontal sharp transient EPOCH 105. Single lead EKG showing some premature contractions and occasional irregularity. INTERPRETATION Very mild encephalopathy. Clinical correlation. aMnas Castillo MD MG/EO /8:40 PM /7:38 AM g
[2017-01-10 08:16] VITALS: BP 182/74; PULSE 89; RESP 18; TEMP 98.1; O2SAT 99
[2017-01-10] MEDS: PREGABALIN 75 MG CAP PO SCH ×3 (10:01→18:21)
[2017-01-10] MEDS: VENLAFAXINE HCL XR 75 MG CAP PO SCH (10:01)
[2017-01-10] MEDS: DOCUSATE SODIUM 50 MG/SENNA 8.6 MG TAB PO SCH ×2 (10:02→21:25)
[2017-01-10] MEDS: ATENOLOL 50 MG TAB PO SCH ×2 (10:02→21:25)
[2017-01-10] MEDS: SODIUM CHLORIDE 0.9% FLUSH 10 ML FLUSH IV FLUSH SCH ×2 (10:02→21:28)
[2017-01-10] MEDS: NIFEdipine 60 MG SUSTAINED RELEASE TAB PO SCH ×2 (10:02→21:25)
[2017-01-10] MEDS: oxyCODONE/ACETAMINOPHEN 5 MG/325 MG TAB PO PRN ×2 (11:57→21:25)
[2017-01-10 12:00] VITALS: BP 149/65; PULSE 76; RESP 18; TEMP 98; O2SAT 96
--- NOTE | 2017-01-10 15:21 | RADRPT ---
EXAM DATE/TIME: 01/10/2017 13:21 [facility] COMPARISON: KNEE LEFT COMPLETE (4VWS), January 08, 2017, 17:06. INDICATIONS : Pain and swelling. MEDICAL HISTORY : Hypertension. SURGICAL HISTORY : Fusion, cervical. Hysterectomy. Tonsillectomy. Lumbar fusion and right ankle. ENCOUNTER: Initial ACUITY: 3 day PAIN SCORE: 10/10 LOCATION: Left knee. TECHNIQUE: Multiplanar, multisequence MRI examination was performed without contrast. FINDINGS: Large effusion, severe diffuse synovitis and broad areas of moderately intense marrow edema of the di stal femur and proximal tibia noted, all of concern for an active inflammatory arthropathy. There is severe lateral compartment chondral loss. A broad area of flattening/remodeling involves the central and posterior weightbearing surface of the lateral femoral condyle. There is focal crescenti c-shaped subchondral sclerosis and marrow edema of the lateral tibial plateau suggesting a nondisplac ed subacute subchondral insufficiency fracture. There is a questionable small erosion developing neno g the lateral margin of the lateral tibial plateau. Otherwise, lateral tibial plateau morphology is w ithin normal limits. There is mild to moderate fairly generalized chondral thinning of the medial and patellofemoral sergio rtments. Complex, radial predominant degenerative appearing tearing is seen of the posterior horn and body of the lateral meniscus. The body segment is extruded to the lateral joint margin. There is also a displ aced fragment in the posterolateral notch region. Medial meniscus intact. Cruciate and collateral ligaments are intact. No acute bone destruction demonstrated. CONCLUSION: 1. Findings of concern for an acute/active inflammatory arthropathy of the left knee with large effus ion, severe synovitis and broad areas of reactive appearing joint centered marrow edema noted as abov e. The features are nonspecific. Rheumatoid and gout would be in the differential. An infectious arth ropathy should also be considered in the differential. 2. Broad area of chronic appearing subchondral flattening/remodeling of the lateral femoral condyle w hich may be the more chronic sequela of an underlying inflammatory arthropathy. There is a suspected subacute, nondisplaced subchondral insufficiency fracture of the lateral tibial plateau and a possibl e tiny erosion along its lateral margin. 3. Complex and most likely chronic/degenerative tear of the posterior horn and body of the lateral me niscus. There is a displaced fragment in the posterior notch region and also extrusion of the body se gment. Shar Tovar MD on January 10, 2017 at 15:12 Board Certified Radiologist. This report was verified electronically.
[2017-01-10] MEDS: ACETAMINOPHEN 325 MG TAB PO PRN (15:42)
[2017-01-10 17:00] VITALS: TEMP 98.2
--- NOTE | 2017-01-10 17:02 | PD.RAD ---
Post Procedure Progress Note Pre Procedure Diagnosis: (1) Left knee pain Post Procedure Diagnosis: (1) Left knee pain Procedure Date: Jan 10, 2017 Supervising Radiologist: Manuelito Diaz Proceduralist/Assist: James Syed, RT(R), Ambika Doan RT(R)() Anesthesia: Local Plan of Activity Patient to Unit: Nursing Unit Patient Condition: Good Additional Comments: Removed 5ml of minimally serosang joint fluid. See PACS Report for procedural detail/treatment Manuelito Diaz MD Jan 10, 2017 17:02
[2017-01-10 20:17] VITALS: BP 145/73; PULSE 81; RESP 18; TEMP 98; O2SAT 97
--- NOTE | 2017-01-10 23:10 | HHI.PR ---
Subjective Remarks Follow up for Falls, delirium. Patient reports less pain today with regards to her left knee. No fever, chills. Objective Vitals Vital Signs Date Time Temp Pulse Resp B/P Pulse Ox O2 Delivery O2 Flow Rate FiO2 01/10/17 20:17 98.0 81 18 145/73 97 01/10/17 17:00 98.2 01/10/17 12:00 98.0 76 18 149/65 96 01/10/17 08:16 98.1 89 18 182/74 99 01/10/17 05:04 98.7 78 18 136/71 97 01/10/17 00:20 97.8 68 18 168/89 98 I/O 01/09/17 01/09/17 01/09/17 01/10/17 01/10/17 01/10/17 06:59 14:59 22:59 06:59 14:59 22:59 Intake Total 200 ml 720 ml Output Total 1 ml 901 ml Balance 199 ml -181 ml Intake Oral 200 ml 720 ml Output Urine Total 900 ml Stool Total 1 ml 1 ml # Voids 2 5 2 # Bowel Movements 1 Result Diagram: 01/08/17 1300 01/08/17 1300 Imaging Last Impressions Knee MRI 01/10/17 0000 Signed Impressions: Service Date/Time: December 13:21 - CONCLUSION: 1. Findings of concern for an acute/active inflammatory arthropathy of the left knee with large effusion, severe synovitis and broad areas of reactive appearing joint centered marrow edema noted as above. The features are nonspecific. Rheumatoid and gout would be in the differential. An infectious arthropathy should also be considered in the differential. 2. Broad area of chronic appearing subchondral flattening/remodeling of the lateral femoral condyle which may be the more chronic sequela of an underlying inflammatory arthropathy. There is a suspected subacute, nondisplaced subchondral insufficiency fracture of the lateral tibial plateau and a possible tiny erosion along its lateral margin. 3. Complex and most likely chronic/degenerative tear of the posterior horn and body of the lateral meniscus. There is a displaced fragment in the posterior notch region and also extrusion of the body segment. Shar Tovar MD Head CT 01/08/17 1249 Signed Impressions: Service Date/Time: Sunday, January 08, 2017 14:06 - CONCLUSION: Normal examination. Juan A Jordan Jr., MD Chest X-Ray 01/08/17 1249 Signed Impressions: Service Date/Time: Sunday, January 08, 2017 14:35 - CONCLUSION: Hypoinflation with no acute cardiopulmonary process. Bob Albright MD Shoulder X-Ray 01/08/17 0000 Signed Impressions: Service Date/Time: Sunday, January 08, 2017 14:23 - CONCLUSION: Mild degenerative changes of the a.c. joint. Otherwise, unremarkable exam.. Juan A Jordan Jr., MD Knee X-Ray 01/08/17 0000 Signed Impressions: Service Date/Time: Sunday, January 08, 2017 17:06 - CONCLUSION: 1. Moderate to large suprapatellar knee joint effusion with scattered calcifications. 2. Moderate joint space narrowing involving the patellofemoral and femorotibial joints. 3. No acute fracture or dislocation. oGnzalo Phillips MD Cervical Spine CT 01/08/17 0000 Signed Impressions: Service Date/Time: Sunday, January 08, 2017 14:06 - CONCLUSION: 1. No fracture or dislocation. 2. Anterior fusion from C5-C7. 3. Multilevel degenerative changes as detailed above. 4. 1.5 cm left thyroid nodule. 5. Carotid artery atherosclerotic calcifications. Juan A Jordan Jr., MD Objective Remarks GENERAL: Alert, oriented to person, place, month and year. Knows the name of the president. NAD. SKIN: Warm and dry. HEAD: Normocephalic. EYES: No scleral icterus. No injection or drainage. NECK: Supple, trachea midline. No JVD or lymphadenopathy. CARDIOVASCULAR: Regular rate and rhythm without murmurs, gallops, or rubs. RESPIRATORY: Breath sounds equal bilaterally. No accessory muscle use. GASTROINTESTINAL: Abdomen soft, non-tender, nondistended. MUSCULOSKELETAL: No cyanosis. Left knee feels warmer than the right knee. Significant pain on palpation on the left knee. There is swelling around the knee as well. Left knee pain on active and passive range of motion. BACK: Nontender without obvious deformity. No CVA tenderness. Procedures None. A/P Problem List: (1) Left knee pain ICD Code: M25.562 Status: Acute (2) Delirium ICD Code: R41.0 Status: Acute (3) Frequent falls ICD Code: R29.6 Status: Acute (4) Hypertension ICD Code: I10 Status: Acute Assessment and Plan 71-year-old female past medical history hypertension, CVA, chronic pain syndrome , narcotic dependence who presented with altered mental status - Delirium - appears to be resolved. Patient is coherent, oriented to name, place, month and year, knows the name of the [place] President. - Possibly secondary to poly-pharmacy with multiple sedating medication including narcotic, insomnia medication, benzos, and muscle relaxants. - patient was seeing Dr. Corley in regards to this. - Last review and relatively stable. CT scan of the head is negative. No focal neurological deficits. - Neurology is following. EEG shows mild encephalopathy. Neurology recommended to continue Pregabalin. - Left knee swelling/pain - Patient denies any fall as the cause of her knee pain. - Knee X-Ray showed prepatellar fluid. MRI of the left knee shows acute arthropathy, severe effusion. - Patient underwent left knee joint aspiration by IR today. Will follow culture results. - Consulted Orthopedic surgery for recommendations. - Continue Percocet 5/325mg Q6hrs PRN. - Multiple falls - Secondary to polypharmacy and multiple sedating medication. - Will continue to reduce non-essential medications. - PT consulted. - Hypertension - GERD - Continue Atenolol 50mg BID, Nifedipine 60mg BID - continue Protonix Full code. SCDs. Shraddha Hurt DO Jan 10, 2017 23:10
[2017-01-11 00:21] VITALS: BP 152/75; PULSE 75; RESP 18; TEMP 98.3; O2SAT 95
[2017-01-11 03:54] VITALS: BP 156/94; PULSE 85; RESP 18; TEMP 98.5; O2SAT 95
--- NOTE | 2017-01-11 09:10 | RADRPT ---
EXAM DATE/TIME: 01/10/2017 17:44 [facility] COMPARISON: No previous studies available for comparison. INDICATIONS : Patient is in need of a left knee aspiration due to pain and swelling. MEDICAL HISTORY : History of CVA, HTN, HLD, fibromyalgia. SURGICAL HISTORY : History of tonsillectomy, myelogram, abdominoplasty, hysterectomy. ENCOUNTER: Initial ACUITY: 3 days PAIN SCORE: 10/10 LOCATION: Left knee FLUORO TIME: IMAGE SERIES: 0 DEVICE(S): 22 gauge needle was placed into the left knee joint. RESPONSE: Pre procedure pain level was 10/10 FLUID: Total volume of5 cc of clear red fluid was removed. Fluid specimen was submitted to the lab for evaluation. PROCEDURE : 1. ultrasound guided left knee aspiration. The risks, benefits and alternatives to the procedure were explained and verbal and written consent w as obtained. The site was prepped in sterile fashion. Full sterile technique was used, including ca p, mask, sterile gloves and gown and a large sterile sheet. Hand hygiene and 2% chlorhexidine and/or betadine/alcohol prep was utilized per protocol for cutaneous antisepsis. The skin and subcutaneous tissues were infiltrated with local anesthetic solution. Ultrasound rotation of the left knee confirms a complex suprapatellar effusion. 22 gauge spinal needl e was advanced into the left knee joint and approximately 5 cc of slightly serosanguineous joint flui d was aspirated. No additional fluid could be removed. The patient tolerated the procedure well and there were no complications. CONCLUSION: Uncomplicated left knee arthrocentesis as above. Manuelito Diaz MD on January 11, 2017 at 9:07 Board Certified Radiologist. This report was verified electronically.
[2017-01-11 09:12] VITALS: BP 172/84; PULSE 86; RESP 18; TEMP 98.9; O2SAT 97
[2017-01-11] MEDS: ATENOLOL 50 MG TAB PO SCH (09:31)
[2017-01-11] MEDS: SODIUM CHLORIDE 0.9% FLUSH 10 ML FLUSH IV FLUSH SCH (09:32)
[2017-01-11] MEDS: PREGABALIN 75 MG CAP PO SCH ×2 (09:32→12:53)
[2017-01-11] MEDS: NIFEdipine 60 MG SUSTAINED RELEASE TAB PO SCH (09:32)
[2017-01-11] MEDS: VENLAFAXINE HCL XR 75 MG CAP PO SCH (09:32)
[2017-01-11] MEDS: oxyCODONE/ACETAMINOPHEN 5 MG/325 MG TAB PO PRN (09:45)
[2017-01-11 12:31] VITALS: BP 177/90; PULSE 82; RESP 16; TEMP 98.4; O2SAT 94
[2017-01-11] MEDS: cloNIDine HCL 0.1 MG TAB PO PRN (12:53)
[2017-01-11] MEDS ORDERED: OXYC1TAB63 PO (13:38)
[2017-01-11 14:30] VITALS: BP 147/67; PULSE 83
--- NOTE | 2017-01-11 15:13 | MB ---
cc: RAD CELESTIN DATE OF CONSULTATION: 01/11/2017 REASON FOR CONSULTATION Left knee pain and swelling. HISTORY OF PRESENT ILLNESS This patient is a 71-year-old female with past history of stroke, arthritis, chronic pain syndrome, fibromyalgia, who presents to [facility] with altered mental status and frequent falls. She is a poor historian and does take multiple medications which can alter mental status including pain medication. She complains of increasing pain and swelling of her left knee. She believes she fell but does not give a good detailed history. She states the pain is throbbing and aching. Overall it is improved since her hospital stay. She did have interventional radiology perform an arthrocentesis yesterday and that was sent for culture and sensitivity which is growing no bacteria to date. She states overall the pain and swelling has started to resolve. No numbness or tingling. No referred symptoms. She appears less confused than she was prior to hospital admission. PAST MEDICAL HISTORY 1. Chronic pain syndrome. 2. Fibromyalgia. 3. Osteoarthritis. 4. Anxiety. 5. Depression. 6. Insomnia. 7. Hypertension. 8. Gastric reflux. 9. Spinal stenosis. 10.Stroke. 11.Polypharmacy. 12.Narcotic dependent. PAST SURGICAL HISTORY 1. Hysterectomy. 2. Abdominoplasty. 3. Right ankle surgery. 4. Spinal surgery. 5. Myelogram. 6. Tonsillectomy. MEDICATIONS 1. Tramadol. 2. Ativan. 3. Atenolol. 4. Ambien. 5. Zofran. 6. Protonix. 7. Percocet. 8. Lyrica. 9. Effexor. 10.Catapres. 11.Procardia. 12.Fentanyl patch. 13.Flexeril. ALLERGIES 1. CEPHALOSPORIN. 2. CLINDAMYCIN. 3. CONTRAST MEDIA. 4. ERYTHROMYCIN. 5. LEVAQUIN. 6. MORPHINE. 7. PENICILLIN. 8. SULFA. 9. TETRACYCLINE. 10.VIOXX. 11.HYDROCODONE. REVIEW OF SYSTEMS She has complained of joint pain and swelling of her left knee. Otherwise negative for 10 systems. SOCIAL HISTORY She does not currently smoke or drink. She lives with her daughter. FAMILY HISTORY Reviewed and noncontributory. PHYSICAL EXAMINATION GENERAL: The patient is awake, alert, lying in bed in no acute distress. HEENT: Normocephalic, atraumatic. Pupils are round. Extraocular muscles intact. NECK: Supple. LUNGS: Clear. HEART: Regular rate and rhythm. ABDOMEN: Soft, Noncontributory. SKIN: Multiple bruises throughout her body. EXTREMITIES: The left knee does show a moderate size effusion. She can flex and extend her knee with no pain upon active or passive motion. She does have some limitation in full flexion, left side compared to the right. No ligament instability. No calf swelling. Neurovascularly intact distally. LABORATORY White blood cell count 7.7, hemoglobin 13, hematocrit 41, platelets 229. Glucose is 86. IMAGING I reviewed the MRI of the left knee that shows a large knee joint effusion. There is evidence of degenerative osteoarthritis present. There may be a mild subchondral insufficiency fracture of the lateral femoral condyle. There appears to be tearing of the lateral meniscus. There is acute inflammatory arthropathy which could be rheumatoid or gout-like. Infection is considered less likely in the differential diagnosis. Chronic re-modeling of lateral femoral condyle which may be associated with inflammatory arthropathy as well. Urinalysis shows enterococcus faecalis and Klebsiella. Again, aspiration of her left knee joint no growth today. IMPRESSION A 71-year-old female with left knee pain and swelling, history of multiple falls, poor historian due to polypharmacy with multiple narcotic medications, presented with altered mental status. She appeared to have had an urinary tract infection which is being treated. She has undergone arthrocentesis of her knee which has helped her symptoms and cultures are negative. She likely has osteoarthritis and possible inflammatory arthritis as well. PLAN Discussed the diagnosis with the patient. Recommend nonoperative treatment at this stage. As her symptoms continue to improve I would recommend observation at this point. She can follow-up with the undersigned at the [facility] after discharge. MD JACLYN Montalvo/JESSENIA /12:55 PM /2:51 PM
--- NOTE | 2017-01-11 17:04 | HHI.DS ---
Discharge Summary Admission Date Jan 08, 2017 at 3:57 pm Discharge Date: Jan 11, 2017 Admitting Diagnosis altered mental status, frequent falls (1) Left knee pain ICD Code: M25.562 Diagnosis: Principal (2) Delirium ICD Code: R41.0 Diagnosis: Principal (3) Frequent falls ICD Code: R29.6 Diagnosis: Principal (4) Hypertension ICD Code: I10 Procedures Left knee aspiration. Brief History - From Admission 71-year-old female past medical history of CVA, osteoarthritis, chronic pain syndrome including fibromyalgia, and history of CVA who presented with altered mental status and multiple falls. Patient is a very poor historian history interview taken from patient's nurse and from medical records. Patient stated that she's here due to her left knee pain and swelling. She stated that this occurred today. She cannot give me any details in regards to this. Patient able to give me her first and last name. She was also able to tell me that she is at the hospital but stated that she is at [facility]. Patient cannot tell me the date and she was able to tell me who the president was. Patient seems to be intermittently confused. During the interview she was saying that she lives with her mother and that her mother does not get along because of the person she is dating. Patient actually lives with her daughter and her grandkids. Per patient's nurse is at the bedside she stated that patient's mental status improved drastically. Patient has no focal neurological deficits. Per patient's nurse she stated that her daughter stated that patient would have missing pills and will need to get refills on her medication earlier than prescribed. The patient manages her own medication. Per ED provider daughter stated that patient has been having altered mental status over the past few months that has worsened. On multiple control substance and narcotics and previously was told that her altered mental status was due to polypharmacy. Patient was seen Dr. Corley in regards to this. CBC/BMP: 01/08/17 1300 01/08/17 1300 Significant Findings Laboratory Tests Test 01/09/17 05:20 Ammonia LESS THAN 10 MCMOL/L (11-32) Imaging Last Impressions Knee MRI 01/10/17 0000 Signed Impressions: Service Date/Time: December 13:21 - CONCLUSION: 1. Findings of concern for an acute/active inflammatory arthropathy of the left knee with large effusion, severe synovitis and broad areas of reactive appearing joint centered marrow edema noted as above. The features are nonspecific. Rheumatoid and gout would be in the differential. An infectious arthropathy should also be considered in the differential. 2. Broad area of chronic appearing subchondral flattening/remodeling of the lateral femoral condyle which may be the more chronic sequela of an underlying inflammatory arthropathy. There is a suspected subacute, nondisplaced subchondral insufficiency fracture of the lateral tibial plateau and a possible tiny erosion along its lateral margin. 3. Complex and most likely chronic/degenerative tear of the posterior horn and body of the lateral meniscus. There is a displaced fragment in the posterior notch region and also extrusion of the body segment. Shar Tovar MD Aspiration 01/10/17 0000 Signed Impressions: Service Date/Time: December 17:44 - CONCLUSION: Uncomplicated left knee arthrocentesis as above. Manuelito Diaz MD Head CT 01/08/17 1249 Signed Impressions: Service Date/Time: Sunday, January 08, 2017 14:06 - CONCLUSION: Normal examination. Juan A Jordan Jr., MD Chest X-Ray 01/08/17 1249 Signed Impressions: Service Date/Time: Sunday, January 08, 2017 14:35 - CONCLUSION: Hypoinflation with no acute cardiopulmonary process. Bob Albright MD Shoulder X-Ray 01/08/17 0000 Signed Impressions: Service Date/Time: Sunday, January 08, 2017 14:23 - CONCLUSION: Mild degenerative changes of the a.c. joint. Otherwise, unremarkable exam.. Juan A Jordan Jr., MD Knee X-Ray 01/08/17 0000 Signed Impressions: Service Date/Time: Sunday, January 08, 2017 17:06 - CONCLUSION: 1. Moderate to large suprapatellar knee joint effusion with scattered calcifications. 2. Moderate joint space narrowing involving the patellofemoral and femorotibial joints. 3. No acute fracture or dislocation. Gonzalo Phillips MD Cervical Spine CT 01/08/17 0000 Signed Impressions: Service Date/Time: Sunday, January 08, 2017 14:06 - CONCLUSION: 1. No fracture or dislocation. 2. Anterior fusion from C5-C7. 3. Multilevel degenerative changes as detailed above. 4. 1.5 cm left thyroid nodule. 5. Carotid artery atherosclerotic calcifications. Juan A Jordan Jr., MD PE at Discharge GENERAL: Alert, oriented to person, place, month and year. Knows the name of the president. NAD. SKIN: Warm and dry. HEAD: Normocephalic. EYES: No scleral icterus. No injection or drainage. NECK: Supple, trachea midline. No JVD or lymphadenopathy. CARDIOVASCULAR: Regular rate and rhythm without murmurs, gallops, or rubs. RESPIRATORY: Breath sounds equal bilaterally. No accessory muscle use. GASTROINTESTINAL: Abdomen soft, non-tender, nondistended. MUSCULOSKELETAL: No cyanosis. Left knee feels warmer than the right knee. Significant pain on palpation on the left knee. There is swelling around the knee as well. Left knee pain on active and passive range of motion. BACK: Nontender without obvious deformity. No CVA tenderness. Pt update on day of discharge Patient is doing well. She is ambulating some in the room. Left knee pain is somewhat improved. No fever, chills. Discussed with patient and also her daughter. Patient already has home health set up at home. Would like to go home and follow up with orthopedic surgery in the outpatient setting. Patient was also given a prescription for outpatient physical therapy if that is desired. Hospital Course 71-year-old female past medical history hypertension, CVA, chronic pain syndrome , narcotic dependence who presented with altered mental status - Delirium - appears to be resolved. Patient is coherent, oriented to name, place, month and year, knows the name of the [place] President. - Possibly secondary to poly-pharmacy with multiple sedating medication including narcotic, insomnia medication, benzos, and muscle relaxants. - patient was seeing Dr. Corley in regards to this. - Last review and relatively stable. CT scan of the head is negative. No focal neurological deficits. - Neurology is following. EEG shows mild encephalopathy. Neurology recommended to continue Pregabalin. - Left knee swelling/pain - Patient denies any fall as the cause of her knee pain. - Knee X-Ray showed prepatellar fluid. MRI of the left knee shows acute arthropathy, severe effusion. - Patient underwent left knee joint aspiration by IR - Consulted Orthopedic surgery for recommendations --> non-operative management. Patient is doing well. - Will discharge patient home with follow up with her orthopedic surgeon. - Continue Percocet 5/325mg Q6hrs PRN. - Multiple falls - Secondary to polypharmacy and multiple sedating medication. - Will continue to reduce non-essential medications. - PT consulted, recommends home with home health. Patient has home health already. - Hypertension - GERD - Continue Atenolol 50mg BID, Nifedipine 60mg BID - continue Protonix Full code. SCDs. Pt Condition on Discharge: Stable Discharge Disposition: Disch w/ Home Health Serv Discharge Time: > 30 minutes Discharge Instructions DIET: Follow Instructions for: Heart Healthy Diet Activities you can perform: Regular-No Restrictions Follow up Referrals: Neurology - 2 Weeks with Enzo Corley MD Orthopedics - 1 Week with Ac Martell MD PCP Follow-up - 1 Week with Tim López MD New Medications: Oxycodone-Acetaminophen (Oxycodone-Acetaminophen) 5-325 mg Tab 1 TAB PO Q6H PRN PAIN SCALE 5 TO 10 #20 TAB Continued Medications: Atenolol (Atenolol) 50 Mg Tab 50 MG PO BID Blood Pressure Management #14 Ref 0 TAB Cholecalciferol (Vitamin D) 2,000 Unit Tab 2000 DAILY Nutritional Supplement Clonidine (Catapres) 0.1 Mg Tab 0.1 MG PO TID PRN BLOOD PRESSURE MANAGEMENT #60 Ref 0 TAB Magnesium Oxide (Magnesium Oxide) 400 Mg Cap 400 MG DAILY Nutritional Supplement Nifedipine ER 24 HR (Procardia XL) 60 Mg Tab 60 MG PO BID #30 Ref 0 TAB Ondansetron (Zofran) 4 Mg Tab 4 MG PO Q8HR PRN NAUSEA OR VOMITING Ref 0 TAB Pantoprazole (Protonix) 40 Mg Tab 40 MG PO DAILY PRN REFLUX #30 Ref 0 TAB Pregabalin (Lyrica) 150 Mg Cap 150 MG PO TID #90 Ref 0 CAP Venlafaxine (Effexor) 75 Mg Tab 75 MG PO TID DE #30 Ref 0 TAB Discontinued Medications: Clonazepam (Klonopin) 1 Mg Tab 1 MG PO BID Muscle Spasm #60 Ref 0 TAB Cyclobenzaprine (Flexeril) 10 Mg Tab 10 MG PO TID Muscle Spasm #90 Ref 0 TAB Fentanyl Patch 72 HR (Fentanyl Patch 72 HR) 100 Mcg/Hr Patch 100 MCG T-DERMAL EVERY OTHER DAY Remove old patch when new one placed. Pain Management #10 Ref 0 PATCH Lorazepam (Lorazepam) 1 Mg Tab 1 MG PO Q8H PRN ANXIETY Ref 0 TAB Oxycodone-Acetaminophen (Percocet) 10-325 mg Tab 1 TAB PO Q6H PRN PAIN Ref 0 TAB Tramadol (Tramadol) 50 Mg Tab 50 MG PO Q6H PRN PAIN Ref 0 TAB Zolpidem (Zolpidem) 10 Mg Tab 10 MG PO HS PRN INSOMNIA Ref 0 TAB Shraddha Hurt DO Jan 11, 2017 5:04 pm
== END 2017-01-11 17:21 | disposition home or self-care (01) ==
LOC: NEPE 11:17 → NEDA 15:57 → NEPHCDU 18:09
PROVIDERS: ADMIT Hospitalist; ATTEND Hospitalist
DX: R41.82 Altered mental status, unspecified (principal); G93.41 Metabolic encephalopathy; S83.272A Complex tear of lateral meniscus, current injury, left knee, initial encounter; M65.862 Other synovitis and tenosynovitis, left lower leg; S00.83XA Contusion of other part of head, initial encounter; T14.8 Other injury of unspecified body region; S40.022A Contusion of left upper arm, initial encounter; S20.212A Contusion of left front wall of thorax, initial encounter; M54.2 Cervicalgia; M25.512 Pain in left shoulder; R06.02 Shortness of breath; R53.83 Other fatigue; I65.29 Occlusion and stenosis of unspecified carotid artery; K59.00 Constipation, unspecified; M12.9 Arthropathy, unspecified; R29.6 Repeated falls; I10 Essential (primary) hypertension; E78.00 Pure hypercholesterolemia, unspecified; K21.9 Gastro-esophageal reflux disease without esophagitis; G47.00 Insomnia, unspecified; E04.1 Nontoxic single thyroid nodule; M48.07 Spinal stenosis, lumbosacral region; F41.9 Anxiety disorder, unspecified; F32.9 Major depressive disorder, single episode, unspecified; G89.4 Chronic pain syndrome; M79.7 Fibromyalgia; M19.90 Unspecified osteoarthritis, unspecified site; Z86.73 Personal history of transient ischemic attack (TIA), and cerebral infarction without residual deficits; Z98.1 Arthrodesis status; Z79.899 Other long term (current) drug therapy; W19.XXXA Unspecified fall, initial encounter
CPT/HCPCS: 20610; 70450; 71010; 72125; 73030; 73564; 73721; 76942; 80053; 81001; 82140; 82550; 82552; 85025; 85610; 85730; 87070; 87077; 87086; 87186; 87205; 92526; 92610; 93005; 95819; 97110; 97116; 97162; 99285; G0378; G8987; G8988; G8996; G8997; G8998; J7030

== ENCOUNTER 2018-01-13 05:52 | Inpatient (IN) ==
[2018-01-13] MEDS ORDERED: Metoprolol Tartrate 25 MG Tablet PO SCH (06:45)
[2018-01-13] MEDS ORDERED: Chlorhexidine Gluconate 2% 1 Pack (2 Cloths) TOPICAL SCH (06:45)
[2018-01-13] MEDS ORDERED: Chlorhexidine 4% Topical 120 APPLIC/120 ML Bottle TOPICAL SCH (06:45)
[2018-01-13] MEDS: Dexamethasone Inj 20 MG/5 ML Vial IV.PUSH ONE ×2 (06:54→12:35)
[2018-01-13] MEDS ORDERED: Bisacodyl 10 MG Supp RECTAL PRN (06:56)
[2018-01-13] MEDS ORDERED: Post-op Orders (for Pharmacy) OTHER STA (06:56)
[2018-01-13] MEDS ORDERED: Bupivacaine/Dextrose 0.75% Inj 2 ML Ampul ONE (06:59)
[2018-01-13] MEDS ORDERED: Sodium Chlor 0.9% Inj 500 ML IV.SIG SCH (07:00)
[2018-01-13] MEDS ORDERED: Vancomycin Inj 1 GM/200 ML PIGGYBACK IV.SIG SCH (07:00)
[2018-01-13] MEDS ORDERED: Propofol Inj 500 MG/50 ML Vial ONE (07:25)
[2018-01-13] MEDS ORDERED: ceFAZolin 2 GM Premix Inj 2 GM/50 ML PIGGYBACK IV.SIG ONE (07:25)
[2018-01-13] MEDS ORDERED: Tranexamic Acid Inj 1,020 MG in Sodium Chlor 0.9% Inj 100 ML P-ARTICULR SCH (08:30)
[2018-01-13] MEDS ORDERED: Tranexamic Acid Inj 3,000 MG in Sodium Chlor 0.9% Inj 100 ML P-ARTICULR SCH (08:30)
[2018-01-13] MEDS ORDERED: Sodium Chlor 0.9% Inj 73.07 ML, Ropivacaine 0.5% PF Inj 24.63 ML, Ketorolac Inj 30 MG, ... P-ARTICULR SCH ×5 (08:30)
--- NOTE | 2018-01-13 09:57 | MP ---
cc: Ac Martell MD DATE OF OPERATION: PREOPERATIVE DIAGNOSIS: Left knee osteoarthritis. POSTOPERATIVE DIAGNOSIS: Left knee osteoarthritis. PROCEDURE: Left total knee arthroplasty. SURGEON: Ac Martell MD NAPPING MACHINE OPERATOR: DOLORES Duff ANESTHESIA: Spinal with an adductor canal femoral nerve block. ESTIMATED BLOOD LOSS: 200 mL TOURNIQUET TIME: 51 minutes at 250 mmHg. COMPLICATIONS: None. IMPLANTS USED: DePuy Attune size 4 posterior stabilized femoral component, size 3 rotating platform tibial baseplate, size 32 mm patella, size 8 polyethylene tibial insert. INDICATIONS: The patient is a 72-year-old female who has severe osteoarthritis involving the left knee. She has severe disabling pain with standing, walking, and ambulatory weightbearing activity, even severe pain at rest. Pain and deformity is so severe, the patient has become a wheelchair ambulator. She has failed greater than 3 months of nonoperative conservative treatment to include medication therapy, injections, ambulatory assisted aids, home exercise program, activity modification and weight loss. X-rays of the left knee reveal severe osteoarthritis with hahd-kg-blul joint space narrowing, subchondral sclerosis, subchondral cyst, osteophyte formation. She has a large valgus deformity with subluxation of the tibia and associated severe flexion contractures. The patient was counseled on the risks, benefits and alternatives to a total knee arthroplasty. The risks were discussed, which include, but are not limited to anesthesia, bleeding, infection, damage to nerves and blood vessels, pain, stiffness, fracture, dislocation, failure of components, blood clot, pulmonary embolism and even . The patient's pain was severe, she favored the benefits over the risks. She did wish to proceed with surgery. PROCEDURE IN DETAIL: Written consent was obtained. The patient was identified by name, taken to the operating room and placed supine on the operating table. General anesthesia was administered, as well as 1 gram of IV vancomycin. She has had a PENICILLIN ALLERGY, CEPHALOSPORIN ALLERGY AND ALLERGY TO CLINDAMYCIN. A well-padded tourniquet was placed on the left thigh. Left lower extremity prepped and draped using isopropyl alcohol, Hibiclens solution and ChloraPrep solution. After a timeout was performed, Esmarch bandage was used to exsanguinate the left lower extremity and tourniquet inflated to 250 mmHg. A longitudinal incision made over the anterior aspect of the left knee. A medial parapatellar arthrotomy was performed. The patella was everted. A lateral release was performed to allow for additional exposure and eversion of the patella. Oscillating saw was used to perform patellar resection and the size 32 mm guide was placed. Three drill holes were placed and a 32 mm patellar trial fit well. Attention was turned to the femur. An intramedullary guide was placed. The distal femoral guide was initially set to remove 11 mm of distal femur due to her severe flexion contracture. I removed an additional 4 mm. At this point, using oscillating saw and the distal femoral guide. Attention was turned to the tibia where an extramedullary guide was set to remove 6 mm off lowest portion of the medial tibial plateau. Tibial guide was pinned in place. Tibial cut was performed. There was significant tightness still with extension and I removed an additional 2 mm off the tibia. At this point, I went back to the femur and resected an additional 4 mm of distal femur to allow for additional exposure, total of 19 mm of distal femur and 8 mm of tibia. I needed to do these resections in order to get full extension. At this point, attention was turned back to the femur. The AP sizer block measured a size 4. The anterior reference 3-degree external rotation guide was used to pin a size [address] Anterior, posterior and chamfer cuts were performed. A size 4 PCL box guide was pinned in place and the PCL was boxed out with an oscillating saw. The medial and lateral meniscus remnants were removed, as well as bone and soft tissue debris from the posterior portion of the knee. A size 3 tibia baseplate was pinned in place and the tibia was drilled and punched. Trial components were evaluated and final components cemented in place. With current components, the leg could achieve full extension to 0 degrees and flexion to 140. No evidence of tibial liftoff. The patient still has some mild laxity of her medial collateral ligament. This is a chronic condition related to her severe flexion contracture. I did perform balancing with partial release of the LCL to allow for appropriate balancing. The tourniquet was deflated. Bovie cautery was used for hemostasis. The surgical wound was thoroughly irrigated with sterile saline pulse lavage antibiotic impregnated solution. The arthrotomy incision was closed with #1 Vicryl suture. The lateral release was closed with #1 Vicryl suture, subcutaneous layer with 2-0 Vicryl suture. Skin was closed with Dermabond. Sterile dressing applied. The patient tolerated the procedure well. No intraoperative complications noted. Thor Siegel, physician assistant warehouse manager, certified was present for the entire procedure to include patient positioning, the procedure itself. Medical necessity of physician assistant warehouse manager was indicated in this case due to the complexity of the procedure. He assisted with appropriate manipulation of the leg and also retraction of muscles and bone, neurovascular structures. He assisted with preparation of bone. Also, implantation of the prosthetic replacement. Ac Martell MD JWM/TL , 09:27 AM , 09:39 AM
[2018-01-13] MEDS ORDERED: *Meperidine Inj 25 MG/ML Vial PERIprocedural Use ONLY ONE (10:06)
--- NOTE | 2018-01-13 10:36 | XR ---
EXAM DATE: 01/13/2018 10:29 AM EDT AGE/SEX: 72 years / Female INDICATIONS: Left total knee arthroplasty. CLINICAL DATA: This is the patient's initial encounter. Patient reports that signs and symptoms have been present for 1 day and indicates a pain score of 10/10. MEDICAL/SURGICAL HISTORY: None. None. COMPARISON: TLI, MR KNEE W/O CONTRAST, LEFT, 03/25/2017. . FINDINGS: Portable frontal and crosstable lateral views of the knee are obtained and demonstrate a total knee a rthroplasty. The tibial and femoral components appear well seated. There is subcutaneous air and a sm all knee joint effusion. CONCLUSION: Postoperative changes are identified. Electronically signed by: Darius Claudio MD 01/13/2018 10:35 AM EDT
[2018-01-13] MEDS: Venlafaxine XR 75 MG Capsule PO SCH (12:36)
[2018-01-13] MEDS: Magnesium Oxide 400 MG Tablet PO SCH (12:36)
[2018-01-13] MEDS: Senna/Docusate Sodium 8.6/50 MG Tablet PO SCH ×2 (12:36→22:13)
[2018-01-13] MEDS: Pregabalin 75 MG Capsule PO SCH ×2 (12:36→22:13)
[2018-01-13] MEDS: clonazePAM 1 MG Tablet PO SCH ×2 (12:36→22:13)
[2018-01-13] MEDS: Multivitamin/Minerals Therapeutic Tablet PO SCH ×2 (12:37→22:13)
[2018-01-13] MEDS: Acyclovir 800 MG Tablet PO SCH ×2 (12:37→22:13)
[2018-01-13] MEDS: Atenolol 50 MG Tablet PO SCH ×2 (12:37→22:13)
[2018-01-13] MEDS: oxyCODONE/Acetaminophen 10/325 Tablet PO PRN (19:17)
[2018-01-13] MEDS ORDERED: Zolpidem Tartrate 5 MG Tablet PO PRN (21:00)
[2018-01-13] MEDS ORDERED: Vancomycin Inj 1,000 MG in Sodium Chlor 0.9% Inj 250 ML IV.SIG ONE (21:30)
[2018-01-13] MEDS: HYDROmorphone PF Inj 2 MG/ML Vial IV.PUSH PRN (22:20)
--- NOTE | 2018-01-13 23:09 | P.CONIM ---
History of Present Illness Consult date: 01/13/18 Requesting Physician: Ac Martell Reason for Consult: Medical management Primary Care Provider: Tim Little MD Family Provider: Tim Little MD Chief Complaint: knee pain History of Present Illness: 72 y/o female with a history of HTN, anxiety,depression, gerd, and CVA underwent an elective knee surgery today with DR. Martell. [facility] was consulted for medical management of chronic medical conditions. Patient states for years she had been having pain in her left knee and finally was cleared for surgery. She states her pain is better, currently a 5/10, worse with movement and better with pain medications. She is requesting if possible to go to [facility] because she lives alone and cant have home health. She denies any associated chest pain, sob, fever or chills. Review of Systems All other systems reviewed negative except as stated in HPI [facility] - History History Provided By: Patient, Family Member - Medical History Medical History: Medical History (Last Reviewed 01/13/18 @ 06:32 by Gaby Pal) Arthritis Brain lesion Carpal tunnel syndrome, left upper limb Causalgia of left upper extremity Dental bridge present Essential hypertension Fusion of lumbar spine Fusion of sacral region of spine Glaucoma Hemorrhagic stroke History of MRI of brain and brain stem History of anesthesia reaction History of hysterectomy Intermittent confusion Lesion of ulnar nerve, left upper limb Neuropathy REM sleep behavior disorder Sleep related hypoventilation in conditions classified elsewhere Spinal stenosis of lumbar region Spondylosis, lumbosacral Wears glasses - Surgical History Surgical History: Surgical History (Last Reviewed 01/13/18 @ 06:32 by Gaby Pal) History of appendectomy Hx of tonsillectomy S/P cervical spinal fusion S/P foot surgery, right - Tobacco History Second Hand Smoke Exposure: No Tobacco Use In Past 30 Days: No Smoking Status: Former smoker Tobacco Type: Cigarettes - Alcohol History How Often Do You Have a Drink Containing Alcohol: Never - Substance Use History Substance History: No History of Abuse - Travel History Recent Travel in the [place] Within the Last 8 Weeks: No Recent Travel Out of the Country Within the Last 8 Weeks: No - Immunization History Tetanus Immunization: Never Vaccinated Hx Influenza Vaccine This Season: No Medications and Allergies Active Medications: Active Medications Acyclovir (Zovirax) 800 mg PO BID [facility] Last Admin: 01/13/18 22:13 Dose: 800 mg Al Hydroxide/Mg Hydroxide (Milk Of Lisa Liq) 30 ml PO BID PRN PRN Reason: Mild Constipation Aspirin (Aspirin Chew) 81 mg PO BID [facility] Last Admin: 01/13/18 22:12 Dose: 81 mg Atenolol (Tenormin) 50 mg PO BID [facility] Last Admin: 01/13/18 22:13 Dose: 50 mg Bisacodyl (Dulcolax Supp) 10 mg RECTAL DAILY PRN PRN Reason: SEVERE CONSITIPATION Chlorhexidine Gluconate (Hibiclens 4% Topical) 1 applicatio TOPICAL ONCE [facility] Stop: 01/17/18 06:44 Last Admin: 01/13/18 06:55 Dose: 1 applicatio Chlorhexidine Gluconate (Chlorhexidine 2% Cloth) 3 pack TOPICAL DIAMOND GRINDER [facility] Stop: 01/16/18 06:37 Last Admin: 01/13/18 06:55 Dose: 3 pack Clonazepam (Klonopin) 1 mg PO BID [facility] Last Admin: 01/13/18 22:13 Dose: 1 mg Clonidine HCl (Catapres) 0.1 mg PO TID PRN PRN Reason: Hypertension Diphenhydramine HCl (Benadryl) 25 mg PO Q6H PRN PRN Reason: ITCHING Hydromorphone HCl (Dilaudid Pf Inj) 1 mg IV.PUSH Q3H PRN PRN Reason: BREAKTHROUGH PAIN Last Admin: 01/13/18 22:20 Dose: 1 mg Vancomycin/Sodium Chloride (Vancomycin Inj) 1 gm in 200 mls @ 200 mls/hr IV.SIG DIAMOND GRINDER [facility] Stop: 01/17/18 06:59 Last Infusion: 01/13/18 08:35 Dose: Infused Sodium Chloride (Ns Inj) 500 mls @ 30 mls/hr IV.SIG .Q10H [facility] Stop: 01/16/18 06:37 Lactated Ringer's (Lr 1000 Ml Inj) 1,000 mls @ 30 mls/hr IV.SIG .Q24H [facility] Stop: 01/16/18 06:37 Last Admin: 01/13/18 12:35 Dose: Not Given Lactated Ringer's (Lr 1000 Ml Inj) 1,000 mls @ 80 mls/hr IV.CONT .[id number] [facility] Last Admin: 01/13/18 11:16 Dose: 80 mls/hr Lactulose (Lactulose Liq) 30 ml PO DAILY PRN PRN Reason: SEVERE CONSITIPATION Magnesium Oxide (Mag-Ox) 400 mg PO DAILY [facility] Last Admin: 01/13/18 12:36 Dose: Not Given Metoprolol Tartrate (Lopressor) 25 mg PO DIAMOND GRINDER [facility] Stop: 01/16/18 06:37 Miscellaneous Information ([facility]) 1 each OTHER UNSCH PRN PRN Reason: SEE LABEL COMMENTS Stop: 01/14/18 09:49 Multivitamins/Minerals (Theragran-M) 1 tab PO BID [facility] Stop: 03/14/18 08:59 Last Admin: 01/13/18 22:13 Dose: 1 tab Nifedipine (Procardia Xl) 30 mg PO DAILY [facility] Last Admin: 01/13/18 12:36 Dose: Not Given Ondansetron HCl (Zofran Odt) 4 mg SL Q6H PRN PRN Reason: NAUSEA OR VOMITING Oxycodone/Acetaminophen (Percocet 10/325 Mg) 1 tab PO Q6H PRN PRN Reason: PAIN SCALE 1-10 Last Admin: 01/13/18 19:17 Dose: 1 tab Pantoprazole Sodium (Protonix) 40 mg PO DAILY [facility] Last Admin: 01/13/18 12:37 Dose: Not Given Povidone Iodine (Betadine 7.5% Scrub) 1 applicatio TOPICAL ONCE [facility] Stop: 01/17/18 06:59 Last Admin: 01/13/18 06:55 Dose: Not Given Povidone Iodine (Betadine 5% Antisepsis Kit) 1 applicatio EACH NARE DIAMOND GRINDER [facility] Stop: 01/16/18 06:37 Last Admin: 01/13/18 06:54 Dose: Not Given Pregabalin (Lyrica) 150 mg PO BID [facility] Last Admin: 01/13/18 22:13 Dose: 150 mg Senna/Docusate Sodium (Eneida-Colace) 1 tab PO BID [facility] Last Admin: 01/13/18 22:13 Dose: 1 tab Sennosides (Senokot) 17.2 mg PO BID PRN PRN Reason: Moderate Constipation Sodium Chloride (Ns Flush) 2 ml IV.FLUSH BID [facility] Last Admin: 01/13/18 22:14 Dose: Not Given Sodium Chloride (Ns Flush) 2 ml IV.FLUSH PRN PRN PRN Reason: FLUSH AFTER USING IV ACCESS Venlafaxine HCl (Effexor Xr) 225 mg PO DAILY [facility] Last Admin: 01/13/18 12:36 Dose: Not Given Zolpidem Tartrate (Ambien) 5 mg PO HS PRN PRN Reason: INSOMNIA Allergies Allergy/AdvReac Type Severity Reaction Status Date / Time cefepime Allergy Severe Anaphylaxis Verified 01/13/18 06:38 ceftaroline fosamil Allergy Severe Anaphylaxis Verified 01/13/18 06:38 Cephalosporins Allergy Severe Anaphylaxis Verified 01/13/18 06:38 clindamycin Allergy Severe rash and Verified 01/13/18 06:38 heavy chest diatrizoate meglumine Allergy Severe SWELLING Verified 01/13/18 06:38 doxycycline Allergy Severe Anaphylaxis Verified 01/13/18 06:38 erythromycin base Allergy Severe Anaphylaxis Verified 01/13/18 06:38 gadobenic acid Allergy Severe SWELLING Verified 01/13/18 06:38 gadodiamide Allergy Severe SWELLING Verified 01/13/18 06:38 gadoteridol Allergy Severe SWELLING Verified 01/13/18 06:38 iodixanol Allergy Severe SWELLING Verified 01/13/18 06:38 iohexol Allergy Severe SWELLING Verified 01/13/18 06:38 levofloxacin Allergy Severe breathing Verified 01/13/18 06:38 problems minocycline Allergy Severe Anaphylaxis Verified 01/13/18 06:38 morphine Allergy Severe Restlessnes Verified 01/13/18 06:38 s penicillin G Allergy Severe Anaphylaxis Verified 01/13/18 06:38 rofecoxib Allergy Severe Anaphylaxis Verified 01/13/18 06:38 Sulfa (Sulfonamide Allergy Severe Anaphylaxis Verified 01/13/18 06:38 Antibiotics) Tetracyclines Allergy Severe Anaphylaxis Verified 01/13/18 06:38 tigecycline Allergy Severe Anaphylaxis Verified 01/13/18 06:38 Home Medications Medication Instructions Recorded Confirmed Type acyclovir 800 mg PO BID 12/23/17 01/13/18 History atenolol 50 mg PO BID 12/23/17 01/13/18 History clonazepam 1 mg PO BID 12/23/17 01/13/18 History clonidine HCl 0.1 mg PO TID PRN 12/23/17 01/13/18 History cyclobenzaprine 10 mg PO TID 12/23/17 01/13/18 History lorazepam 1 mg PO TID PRN 12/23/17 01/13/18 History magnesium oxide [MagOx] 400 mg PO DAILY 12/23/17 01/13/18 History nifedipine 30 mg PO DAILY 12/23/17 01/13/18 History oxycodone-acetaminophen 1 tab PO Q6H PRN 12/23/17 01/13/18 History pantoprazole 40 mg PO DAILY 12/23/17 01/13/18 History pregabalin [Lyrica] 150 mg PO BID 12/23/17 01/13/18 History venlafaxine 75 mg PO TID 12/23/17 01/13/18 History Exam Vital signs: Vital Signs 01/13/18 06:41 01/13/18 07:12 01/13/18 09:48 Temperature 98 F 97.5 F L Pulse Rate 74 72 81 Respiratory Rate 18 14 Blood Pressure 152/81 H 134/56 L Pulse Oximetry 95 97 99 01/13/18 09:50 01/13/18 10:00 01/13/18 10:15 Temperature 98.1 F 98.1 F 98.1 F Pulse Rate 80 78 78 Respiratory Rate 14 14 14 Blood Pressure 129/57 L 128/63 170/78 H Pulse Oximetry 99 94 L 94 L 01/13/18 10:30 01/13/18 10:45 01/13/18 11:00 Temperature 98.1 F 98.1 F 98.1 F Pulse Rate 72 79 73 Respiratory Rate 14 14 14 Blood Pressure 135/70 144/77 H 127/64 Pulse Oximetry 95 93 L 96 01/13/18 11:15 01/13/18 11:30 01/13/18 11:45 Temperature 98.1 F 98.1 F 98.1 F Pulse Rate 72 72 71 Respiratory Rate 14 14 14 Blood Pressure 119/60 119/58 L 106/55 L Pulse Oximetry 96 94 L 94 L 01/13/18 12:00 01/13/18 12:15 01/13/18 12:30 Temperature 98.1 F 98.1 F 97.8 F Pulse Rate 68 69 68 Respiratory Rate 14 14 14 Blood Pressure 106/59 L 104/61 101/59 L Pulse Oximetry 93 L 93 L 94 L 01/13/18 13:00 01/13/18 13:57 01/13/18 16:00 Temperature 98.1 F 98.2 F Pulse Rate 76 76 Respiratory Rate 18 16 18 Blood Pressure 130/69 144/68 H Pulse Oximetry 94 L 92 L 01/13/18 16:59 01/13/18 20:00 Temperature 97.8 F Pulse Rate 91 H Respiratory Rate 17 21 Blood Pressure 178/96 H Pulse Oximetry 92 L Intake & Output 01/13/18 01/13/18 01/14/18 06:59 18:59 06:59 Intake Total 1510.2 / 1510.2 Output Total 200 / 200 Balance 1310.2 / 1310.2 Weight 68 kg 68.03 kg Intake: IV 1310.2 / 1310.2 LR 1000 mL Inj 1,000 ML @ 30 1000 / 1000 mls/hr IV.SIG .Q24H [facility] Rx#: [id number] Vancomycin Inj 1 gm In 200 ml @ 200 / 200 200 mls/hr IV.SIG DIAMOND GRINDER [facility] Rx#:[id number] Cyklokapron Inj 1,020 MG In NS 110.2 / 110.2 Inj 100 ML @ 200 mls/hr P- ARTICULR ONCE [facility] Rx#:[id number] Anesthesia Amount 200 / 200 Output: Estimated Blood Loss 200 / 200 Other: # Voids 2 Date of Last Bowel Movement 01/11/18 Weight On Admission 68 kg Narrative: GENERAL: This is a well-nourished, well-developed patient, in no apparent distress. SKIN: warm dry and intact, CKS in place with rebecca wrap CARDIOVASCULAR: Regular rate and rhythm without murmurs, gallops, or rubs. RESPIRATORY: Clear to auscultation. Breath sounds equal bilaterally. No wheezes , rales, or rhonchi. GASTROINTESTINAL: Abdomen soft, non-tender, nondistended. Normal active bowel sounds MUSCULOSKELETAL: Extremities without clubbing, cyanosis, or edema. NEURO: Alert & Oriented x4 to person, place, time, situation. Moves all ext x4 Results - Labs Labs: Laboratory Results - last 24 hr 01/13/18 06:40 Blood Type O Positive Blood Type Recheck Not needed Antibody Screen Negative - Imaging Impressions Knee X-Ray 01/13/18 06:55 CONCLUSION: Postoperative changes are identified. Assessment and Plan - Plan 72 y/o female with a history of HTN, anxiety,depression, gerd, and CVA underwent an elective knee surgery today with DR. Martell. Left total knee arthroplasty -Managed by ortho -Pain meds and anticoagulation per ortho -Labs in AM Hypertension, chronic -Resume home medications, monitor vitals, adjust accordingly Gerd, chronic -Resume home medications DVT prophylaxis: per ortho Discussed Condition With: Patient and RN
[2018-01-14] MEDS: oxyCODONE/Acetaminophen 10/325 Tablet PO PRN ×2 (04:21→12:40)
[2018-01-14 07:21] LABS: Baso % (Auto) 0.3 % (0.0-2.0); Eos % (Auto) 0.1 % (0.0-4.0); Hematocrit 29.3 % (35.0-46.0); Hemoglobin 9.8 gm/dL (11.6-15.3); Lymph # (Auto) 1.1 th/mm3 (1.0-4.8); Lymph % (Auto) 9.9 % (9.0-44.0); Mean Corpuscular HGB Conc 33.3 % (32.0-36.0); Mean Corpuscular Hemoglobin 29.2 pg (27.0-34.0); Mean Corpuscular Volume 87.7 fL (80.0-100.0); Mean Platelet Volume 8.4 fL (7.0-11.0); Mono # (Auto) 1.1 th/mm3 (0.0-0.9); Mono % (Auto) 10.7 % (0.0-8.0); Neut # (Auto) 8.4 th/mm3 (1.8-7.7); Platelet Count 183 th/mm3 (150-450); Red Blood Count 3.34 mil/mm3 (4.00-5.30); Red Cell Distribution Width 13.5 % (11.6-17.2); White Blood Count 10.7 th/mm3 (4.0-11.0)
[2018-01-14 07:53] LABS: Calcium 8.4 mg/dL (8.5-10.1); Carbon Dioxide 31.8 meq/L (21.0-32.0); Potassium 3.5 meq/L (3.5-5.1)
--- NOTE | 2018-01-14 08:02 | P.PNOP ---
Subjective Interval history: painful, but doing ok. Physical Exam Vital signs: Vital Signs 01/13/18 09:48 01/13/18 09:50 01/13/18 10:00 Temperature 97.5 F L 98.1 F 98.1 F Pulse Rate 81 80 78 Respiratory Rate 14 14 14 Blood Pressure 134/56 L 129/57 L 128/63 Pulse Oximetry 99 99 94 L 01/13/18 10:15 01/13/18 10:30 01/13/18 10:45 Temperature 98.1 F 98.1 F 98.1 F Pulse Rate 78 72 79 Respiratory Rate 14 14 14 Blood Pressure 170/78 H 135/70 144/77 H Pulse Oximetry 94 L 95 93 L 01/13/18 11:00 01/13/18 11:15 01/13/18 11:30 Temperature 98.1 F 98.1 F 98.1 F Pulse Rate 73 72 72 Respiratory Rate 14 14 14 Blood Pressure 127/64 119/60 119/58 L Pulse Oximetry 96 96 94 L 01/13/18 11:45 01/13/18 12:00 01/13/18 12:15 Temperature 98.1 F 98.1 F 98.1 F Pulse Rate 71 68 69 Respiratory Rate 14 14 14 Blood Pressure 106/55 L 106/59 L 104/61 Pulse Oximetry 94 L 93 L 93 L 01/13/18 12:30 01/13/18 13:00 01/13/18 13:57 Temperature 97.8 F 98.1 F Pulse Rate 68 76 Respiratory Rate 14 18 16 Blood Pressure 101/59 L 130/69 Pulse Oximetry 94 L 94 L 01/13/18 16:00 01/13/18 16:59 01/13/18 20:00 Temperature 98.2 F 97.8 F Pulse Rate 76 91 H Respiratory Rate 18 17 21 Blood Pressure 144/68 H 178/96 H Pulse Oximetry 92 L 92 L 01/14/18 00:00 01/14/18 02:30 01/14/18 04:00 Temperature 97.9 F 98.0 F Pulse Rate 87 95 H Respiratory Rate 18 16 18 Blood Pressure 147/65 H 177/87 H Pulse Oximetry 95 99 01/14/18 05:48 Temperature Pulse Rate Respiratory Rate Blood Pressure 145/67 H Pulse Oximetry Intake & Output 01/13/18 01/14/18 01/14/18 18:59 06:59 18:59 Intake Total 1510.2 / 1510.2 1490 / 1490 Output Total 200 / 200 Balance 1310.2 / 1310.2 1490 / 1490 Weight 68.03 kg 72.5 kg Intake: IV 1310.2 / 1310.2 1250 / 1250 LR 1000 mL Inj 1,000 ML @ 80 1000 / 1000 mls/hr IV.CONT .[id number] [facility] Rx# :[id number] LR 1000 mL Inj 1,000 ML @ 30 1000 / 1000 mls/hr IV.SIG .Q24H [facility] Rx#: [id number] Vancomycin Inj 1 gm In 200 ml @ 200 / 200 200 mls/hr IV.SIG LEAF STAMPER [facility] Rx#:[id number] Vancomycin Inj 1,000 MG In NS 250 / 250 Inj 250 ML @ 250 mls/hr IV.SIG ONCE ONE Rx#:[id number] Cyklokapron Inj 1,020 MG In NS 110.2 / 110.2 Inj 100 ML @ 200 mls/hr P- ARTICULR ONCE [facility] Rx#:[id number] Oral 240 / 240 Anesthesia Amount 200 / 200 Output: Estimated Blood Loss 200 / 200 Other: # Voids 2 2 # Urine Diapers 2 Date of Last Bowel Movement 01/11/18 01/12/18 Narrative: in bed, nad dressing c/d/i neg julio cesar shahi Results - Labs CBC & Chem 7: 01/14/18 06:13 01/14/18 06:13 Laboratory Results - last 24 hr 01/14/18 01/14/18 06:13 06:13 WBC 10.7 RBC 3.34 L Hgb 9.8 L Hct 29.3 L MCV 87.7 MCH 29.2 MCHC 33.3 RDW 13.5 Plt Count 183 MPV 8.4 Neut % (Auto) 79.0 H Lymph % (Auto) 9.9 [place]ette % (Auto) 10.7 H Eos % (Auto) 0.1 Baso % (Auto) 0.3 Neut # (Auto) 8.4 H Lymph # (Auto) 1.1 [place]ette # (Auto) 1.1 H Eos # (Auto) 0.0 Baso # (Auto) 0.0 WBC Differential . Differential Comment Auto diff final Sodium 144 Potassium 3.5 Chloride 105 Carbon Dioxide 31.8 Anion Gap 7 BUN 15 Creatinine 0.79 Estimated GFR 72 L Random Glucose 120 H Calcium 8.4 L - Imaging Impressions Knee X-Ray 01/13/18 06:55 CONCLUSION: Postoperative changes are identified. Assessment and Plan - Ortho Post Op Day # 1 - Assessment and Plan s/p L TKA wbat ok to maintain dressing unless saturated asa 81 d/c planning to snf - [facility] f/up dr. perkins 2 weeks
[2018-01-14] MEDS: Venlafaxine XR 75 MG Capsule PO SCH (09:32)
[2018-01-14] MEDS: Acyclovir 800 MG Tablet PO SCH (09:32)
[2018-01-14] MEDS: clonazePAM 1 MG Tablet PO SCH (09:32)
[2018-01-14] MEDS: Magnesium Oxide 400 MG Tablet PO SCH (09:32)
[2018-01-14] MEDS: Atenolol 50 MG Tablet PO SCH (09:32)
[2018-01-14] MEDS: Multivitamin/Minerals Therapeutic Tablet PO SCH (09:32)
[2018-01-14] MEDS: HYDROmorphone PF Inj 2 MG/ML Vial IV.PUSH PRN (09:33)
[2018-01-14] MEDS: Senna/Docusate Sodium 8.6/50 MG Tablet PO SCH (09:33)
[2018-01-14] MEDS: Pregabalin 75 MG Capsule PO SCH (09:33)
[2018-01-14] MEDS: LORazepam 1 MG Tablet PO PRN ×2 (10:55→16:42)
--- NOTE | 2018-01-14 13:02 | P.PN ---
Subjective Interval history: Follow-up on patient status post left total knee replacement. Patient seen and examined. Upon entering the room, patient appeared to be trying to get out of chair unassisted. Patient states she is doing well except for expected postoperative left knee pain. She denies any fever or chills. She denies any chest pain or shortness of breath. She denies any nausea, vomiting or abdominal pain. States she is tolerating diet well. She denies any dysuria. Physical Exam Vital signs: Vital Signs 01/13/18 13:57 01/13/18 16:00 01/13/18 16:59 Temperature 98.2 F Pulse Rate 76 Respiratory Rate 16 18 17 Blood Pressure 144/68 H Pulse Oximetry 92 L 01/13/18 20:00 01/14/18 00:00 01/14/18 02:30 Temperature 97.8 F 97.9 F Pulse Rate 91 H 87 Respiratory Rate 21 18 16 Blood Pressure 178/96 H 147/65 H Pulse Oximetry 92 L 95 01/14/18 04:00 01/14/18 05:48 01/14/18 08:00 Temperature 98.0 F 98.9 F Pulse Rate 95 H 80 Respiratory Rate 18 20 Blood Pressure 177/87 H 145/67 H 164/87 H Pulse Oximetry 99 94 L 01/14/18 12:00 Temperature 97.9 F Pulse Rate 78 Respiratory Rate 16 Blood Pressure 142/63 H Pulse Oximetry 95 Intake & Output 01/13/18 01/14/18 01/14/18 18:59 06:59 18:59 Intake Total 1510.2 / 1510.2 1490 / 1490 Output Total 200 / 200 Balance 1310.2 / 1310.2 1490 / 1490 Weight 68.03 kg 72.5 kg Intake: IV 1310.2 / 1310.2 1250 / 1250 LR 1000 mL Inj 1,000 ML @ 80 1000 / 1000 mls/hr IV.CONT .[id number] [facility] Rx# :[id number] LR 1000 mL Inj 1,000 ML @ 30 1000 / 1000 mls/hr IV.SIG .Q24H [facility] Rx#: [id number] Vancomycin Inj 1 gm In 200 ml @ 200 / 200 200 mls/hr IV.SIG ENVIRONMENT [employer] [facility] Rx#:[id number] Vancomycin Inj 1,000 MG In NS 250 / 250 Inj 250 ML @ 250 mls/hr IV.SIG ONCE ONE Rx#:[id number] Cyklokapron Inj 1,020 MG In NS 110.2 / 110.2 Inj 100 ML @ 200 mls/hr P- ARTICULR ONCE [facility] Rx#:[id number] Oral 240 / 240 Anesthesia Amount 200 / 200 Output: Estimated Blood Loss 200 / 200 Other: # Voids 2 2 2 # Urine Diapers 2 Date of Last Bowel Movement 01/11/18 01/12/18 01/12/18 Narrative: GENERAL: This is a well-developed well-nourished elderly female in no acute distress. Awake and alert. Sitting in bedside chair. SKIN: Warm and dry. HEAD: Atraumatic. Normocephalic. EYES: Pupils equal and round. No scleral icterus. No injection or drainage. ENT: No nasal bleeding or discharge. Mucous membranes pink and moist. NECK: Trachea midline. No JVD. CARDIOVASCULAR: Regular rate and rhythm. RESPIRATORY: No accessory muscle use. Clear to auscultation. Breath sounds equal bilaterally. GASTROINTESTINAL: Abdomen soft, non-tender, nondistended. Hepatic and splenic margins not palpable. MUSCULOSKELETAL: Extremities without clubbing, cyanosis, or edema. No obvious deformities. NEUROLOGICAL: Awake and alert. No obvious cranial nerve deficits. Motor grossly within normal limits. Five out of 5 muscle strength in the arms and legs. Normal speech. PSYCHIATRIC: Appropriate mood and affect; insight and judgment normal.i Results - Labs CBC & Chem 7: 01/14/18 06:13 01/14/18 06:13 Laboratory Results - last 24 hr 01/14/18 01/14/18 06:13 06:13 WBC 10.7 RBC 3.34 L Hgb 9.8 L Hct 29.3 L MCV 87.7 MCH 29.2 MCHC 33.3 RDW 13.5 Plt Count 183 MPV 8.4 Neut % (Auto) 79.0 H Lymph % (Auto) 9.9 [place] % (Auto) 10.7 H Eos % (Auto) 0.1 Baso % (Auto) 0.3 Neut # (Auto) 8.4 H Lymph # (Auto) 1.1 [place] # (Auto) 1.1 H Eos # (Auto) 0.0 Baso # (Auto) 0.0 WBC Differential . Differential Comment Auto diff final Sodium 144 Potassium 3.5 Chloride 105 Carbon Dioxide 31.8 Anion Gap 7 BUN 15 Creatinine 0.79 Estimated GFR 72 L Random Glucose 120 H Calcium 8.4 L - Imaging ITS Impressions Knee X-Ray 01/13/18 06:55 CONCLUSION: Postoperative changes are identified. Assessment and Plan - Assessment (1) Osteoarthritis of left knee Code(s): M17.12 - Unilateral primary osteoarthritis, left knee Status: Acute (2) S/P total knee arthroplasty Code(s): Z96.659 - Presence of unspecified artificial knee joint Status: Acute (3) Postoperative anemia due to acute blood loss Code(s): D62 - Acute posthemorrhagic anemia Status: Acute (4) Hypertension Code(s): I10 - Essential (primary) hypertension Status: Acute - Plan 72 y/o female with a history of HTN, anxiety,depression, gerd, and CVA underwent an elective knee surgery today with DR. Martell. Osteoarthritis failed attempts at conservative management status post elective left total knee replacement -Managed by ortho. WBAT -Pain meds and anticoagulation per ortho -Reiterated to patient importance of not getting up unassisted due to concern for falls -continue with PT, planning for discharge to SNF, possibly [facility] Anemia, postoperative, acute blood loss Hgb 9.8 -Continue to monitor, repeat CBC in a.m. Hypertension, chronic -Continue patient on Procardia XL and Atenolol -clonidine prn with parameters -Continue to monitor BP and adjust treatment accordingly Hx of CVA -Continue on aspirin -monitor GERD, chronic Depression/Anxiety, chronic -continue home medications DVT prophylaxis: per ortho Discussed Condition With: patient, nursing staff, Dr. Aquino Discharge Planning: Discharge planning per orthopedic service
--- NOTE | 2018-01-15 11:30 | MD ---
cc: Ac Martell MD DATE OF DISCHARGE: 01/14/2018 ADMITTING DIAGNOSIS: Severe degenerative osteoarthritis, left knee. DISCHARGE DIAGNOSIS: Severe degenerative osteoarthritis, left knee. HISTORY OF PRESENT ILLNESS: Ms. Goetz is a 72-year-old female who has been a longstanding patient of Dr. [facility]ell [facility]. Currently, she is being treated for severe and progressive left knee pain. The patient states the pain is inhibiting her activities of daily living and she is unable to ambulate safely. She notes this as a severe aching sensation with weightbearing activities. She has no alleviating factors although in the past she has tried medications, bracing, assistive devices, physical therapy, home exercise program, multiple corticosteroid injections, viscosupplementation injections and even arthroscopic knee surgery without relief of symptoms. She does have x-ray evidence of severe degenerative osteoarthritis of the left knee. While in the office, the patient was counseled on her diagnosis and treatment options. Risks, benefits and indications were all discussed. The patient did elect to proceed with surgical intervention to include a left total knee arthroplasty. DATE OF SURGERY: 01/13/2018. OPERATIVE PROCEDURE: Left total knee arthroplasty. POSTOP: After surgery, the patient was admitted to [facility] where she received appropriate medical management, pain control, DVT prophylaxis, as well as physical therapy. DISCHARGE: Once being discharged from the hospital, the patient has been cleared to go to [facility]. CONDITION ON DISCHARGE: She is in stable condition. DISCHARGE INSTRUCTIONS: She may weight bear as tolerated. She is to receive daily dressing changes. DISCHARGE MEDICATIONS: She has been provided prescriptions for pain control and DVT prophylaxis medication. FOLLOWUP: She has also been provided a followup appointment in approximately 2 weeks from her date of surgery. The patient has asked appropriate questions, which have been answered. The patient has been discharged to [facility]. Dictated by DOLORES Birch MD JACLYN Montalvo/PEREZ , 10:52 AM , 10:57 AM
== END 2018-01-14 17:09 ==
LOC: HSDI 05:52 → N06 12:52
PROVIDERS: ADMIT Orthopaedic Surgery Sports Medicine; ATTEND Orthopaedic Surgery Sports Medicine
DX: M48.061 Spinal stenosis, lumbar region without neurogenic claudication; R63.4 Abnormal weight loss; Z88.5 Allergy status to narcotic agent; Z68.31 Body mass index [BMI] 31.0-31.9, adult; Z88.2 Allergy status to sulfonamides; Z86.73 Personal history of transient ischemic attack (TIA), and cerebral infarction without residual deficits; H40.9 Unspecified glaucoma; K21.9 Gastro-esophageal reflux disease without esophagitis; D62 Acute posthemorrhagic anemia; M17.12 Unilateral primary osteoarthritis, left knee; F41.9 Anxiety disorder, unspecified; M21.00 Valgus deformity, not elsewhere classified, unspecified site; Z98.1 Arthrodesis status; M47.817 Spondylosis without myelopathy or radiculopathy, lumbosacral region; Z88.0 Allergy status to penicillin; G62.9 Polyneuropathy, unspecified; I10 Essential (primary) hypertension; Z90.710 Acquired absence of both cervix and uterus; Z87.891 Personal history of nicotine dependence; F32.9 Major depressive disorder, single episode, unspecified; Z88.8 Allergy status to other drugs, medicaments and biological substances